=== PATIENT | male | born 1990 | race Two or more races ===

== ENCOUNTER 2020-10-19 11:53 | Outpatient (REF) | payer OTHER, SELFPAY | END 2020-10-19 11:54 | disposition home or self-care (01) | LOC: HO.LAB 11:53 | PROVIDERS: Visit Provider Internal Medicine | DX: Z20.828 Contact with and (suspected) exposure to other viral communicable diseases (principal) | CPT/HCPCS: C9803; U0003 ==

== ENCOUNTER 2021-03-04 07:57 | Outpatient (REF) | payer OTHER, SELFPAY ==
[2021-03-04 08:30] LABS: COVID-19 Test Negative (Negative); IDNOW Serial# 55D5AD1C
== END 2021-03-04 07:58 | disposition home or self-care (01) ==
LOC: HO.LAB 07:57
PROVIDERS: Visit Provider Internal Medicine
DX: Z20.822 Contact with and (suspected) exposure to COVID-19 (principal)
CPT/HCPCS: 36415; 87635; C9803

== ENCOUNTER 2021-08-09 11:37 | Emergency (ER) | payer OTHER, SELFPAY ==
[2021-08-09 11:39] VITALS: BP 139/72; PULSE 95; RESP 20; TEMP 36.9; O2SAT 98; BMI 22.3
--- NOTE | 2021-08-09 13:49 | ED.ALLEREA ---
HPI - Allergic Reaction General Chief complaint: Allergic Reaction Stated complaint: allergic reaction Time Seen by Provider: 08/09/21 13:49 Source: patient Mode of arrival: ambulatory Limitations: no limitations History of Present Illness HPI narrative: Patient reports he was at work getting something out of the basement when he felt something bite him to the right elbow and since then has been having itchiness and a rash spreading up his arm. He reports that he started having some dizziness and he became pallor and was sweating. He denies any other symptoms complaints or concerns at this time. MD complaint: allergic reaction and hives Onset (ago): minute(s) (Prior to arrival) Exposure: insect bite (Possibly) Symptoms: rash, itching and dizziness Severity: mild Treatment prior to arrival: none Previous Allergic Reaction History: none Related Data Previous Rx's Medication Instructions Recorded diphenhydramine HCl 25 mg tablet 50 mg PO TID PRN #14 tab 08/09/21 (Benadryl Allergy) famotidine 20 mg tablet (Pepcid) 20 mg PO BID #10 tab 08/09/21 hydrocortisone 2.5 % topical 1 appl TOPICAL QD-TID PRN #454 g 08/09/21 ointment prednisone 20 mg tablet 40 mg PO DAILY 5 Days #10 tab 08/09/21 Allergies Allergy/AdvReac Type Severity Reaction Status Date / Time No Known Allergies Allergy Unverified 08/06/20 16:04 Review of Systems Review of Systems: Constitutional : No Fever, No Chills , no body aches, no recent illness Head/Face: No facial swelling, No facial redness ENT/Mouth : No oral/throat swelling, No Hoarseness, No Swallowing Difficulty Eyes: No Eye Pain, No Swelling, No Redness Cardiovascular : No Chest Pain, No SOB, No palpitations Respiratory : No Cough, No Sputum, No Wheezing, No Smoke Exposure, No Dyspnea Gastrointestinal : No Nausea, No Vomiting, No Diarrhea, No abdominal Pain Genitourinary : No Dysuria, No Urinary Frequency, No Hematuria Musculoskeletal : No joint pain, No Myalgias, No Joint Swelling Skin : No Skin Lesions, positive rash Neuro : No Weakness, No Numbness, No Headache, No dizziness, No tingling Psych : No Anxiety/Panic, No Depression Heme/Lymph: No Bruising, No Lymphadenopathy Endocrine : No Polyuria, No Polydipsia Denies changes in lotions or detergents. Denies new medications or any changes in medications. Denies drainage from rash. Denies any recent sick contacts or recent travel. Yes all other systems are reviewed and are negative PMFSH Past Medical History Attestation statement: The following information was validated with the patient. Social History Social History Advance Directives: No Advance Directives Information Provided: Yes Physical Exam Vital Signs: Vital Signs: Last Vital Signs Temp 98.5 F 08/09/21 11:39 Pulse 95 08/09/21 11:39 Resp 20 08/09/21 11:39 BP 139/72 08/09/21 11:39 Pulse Ox 98 08/09/21 11:39 Body Mass Index 22.3 vital signs have been reviewed as normal and appeared to be correct. Blood pressure normal. Heart rate normal. Respiration rate normal. Temperature normal. Oxygen saturation normal. Appearance: Alert. Oriented X3. No acute distress. No angioedema is noted. Head: Normal external exam. Normocephalic. Atraumatic. Eyes: PERRLA. EOMI. Conjunctiva and sclera normal. Eyelids normal. ENT: Pharynx normal. Uvula midline. Moist mucous membranes. No trismus noted. No drooling noted. No muffled voice noted. Neck: Normal inspection. Neck supple. FROM. No adenopathy. Thyroid Normal. No meningeal signs. No neck mass noted. CVS: Normal heart rate and rhythm. Heart sound normal. Pulses normal throughout. No murmurs/rales/gallops. Respiratory: No respiratory distress. Painless inspiration. Breath sounds normal. No wheezes/rales/rhonchi noted. Chest nontender. No accessory muscle usage noted or decreased air movement noted. Abdomen: Soft and nontender. Bowel sounds normal in all 4 quadrants. No distention noted. No organomegaly noted. No visible injury noted. Back: Full range of motion noted. No rashes/lesion/induration/fluctuance or signs of infection noted. Skin: Skin warm and dry. Normal skin color. Normal skin turgor. To right elbow/forearm/right upper arm patient has macular papular blanchable erythematous rash/hives consistent with allergic reaction. No lesions/lacerations noted. Extremities: Extremities exhibit normal range of motion. Extremities nontender. Neuro: Oriented X 3. No motor deficit. No sensory deficit. Reflexes normal. Normal steady gait. No focal neuro deficits noted. Vascular: + radial pulses/+ 2 distal pedal pulses/+2 dorsalis pedis b/l. Normal cap refill. No cyanosis noted to upper extremity nails and lower extremity toes nails. Course Course Course Narrative: IMP/Plan: Allergic rxn. Not anaphylaxis. Not sepsis/ infectious etiology. Patient well appearing in no acute distress, breathing easily without throat symptoms. Speaking full sentences, and handling secretions without difficulty. There is no obvious threat to airway. Lungs are CTA in all reynoso. No signs of angioedema, stridor, airway compromise, anaphylaxis or anaphylactic shock. Not c/w SSSS/ TEN/ Eryth multiforme/ Can [place]. Given HPI and PE - Will watch and observe. If patient continues to be symptom free - will d/c with return precautions. Patient understands and agrees with plan MDM - Allergic Reaction Medical Records Attestation: I reviewed the patient's medical records. Discharge Plan Discharge Clinical Impression: Allergic reaction, Urticaria Patient Disposition: Home, Self-Care Instructions: Urticaria (ED), General Allergic Reaction (ED), Allergy Testing (ED) Prescriptions: New hydrocortisone 2.5 % ointment 1 appl topical QD-TID PRN (Reason: skin irritation) Qty: 454 RF: 0 diphenhydramine HCl [Benadryl Allergy] 25 mg tablet 50 mg PO TID PRN (Reason: allergic reaction) Qty: 14 RF: 0 famotidine [Pepcid] 20 mg tablet 20 mg PO BID Qty: 10 RF: 0 prednisone 20 mg tablet 40 mg PO DAILY 5 Days Qty: 10 RF: 0 Referrals: Physician,Unknown [Primary Care Provider] - 2 days (Your PCP for allergy testing) Stand Alone Forms: Work/School Release Print Language: Salvadorean
[2021-08-09] MEDS: Famotidine 20 MG TABLET PO (14:08)
[2021-08-09] MEDS: predniSONE 20 MG TABLET 60 MG PO (14:08)
[2021-08-09] MEDS: diphenhydrAMINE HCL 25 MG TABLET 50 MG PO (14:08)
== END 2021-08-09 14:22 | disposition home or self-care (01) ==
PROVIDERS: Emergency Provider Emergency Medicine Emergency Medical Services
DX: L50.0 Allergic urticaria (principal); Z79.899 Other long term (current) drug therapy
CPT/HCPCS: 99283; Q0163

== ENCOUNTER 2021-08-26 15:48 | Emergency (ER) | payer OTHER, SELFPAY ==
[2021-08-26 16:18] VITALS: BP 121/67; PULSE 72; RESP 18; TEMP 36.4; O2SAT 97; BMI 24.4
[2021-08-26 19:51] LABS: MANUAL DIFF FLAG NO
[2021-08-26 19:52] LABS: Basophils Percent Auto 0.3 % (0-2); Eosinophils Absolute Auto 0.8 X10*3/uL (0.0-0.4); Eosinophils Percent Auto 9.3 % (0-4); Hematocrit 38.4 % (42-52); Hemoglobin 12.9 g/dl (14.0-18.0); Imm Gran Abs Auto 0.02 X10*3/uL (0.00-0.03); Imm Gran Pct Auto 0.2 % (0.0-0.4); Lymphocytes Absolute Auto 2.4 X10*3/uL (1.2-4.9); Lymphocytes Percent Auto 26.6 % (20-40); Mean Corpuscular HGB Conc 33.6 g/dl (31.0-36.0); Mean Corpuscular Hemoglobin 29.8 pg (27.0-33.0); Mean Corpuscular Volume 88.7 fL (80-98); Mean Platelet Volume 9.1 fL (9.4-12.4); Monocytes Absolute Auto 0.7 X10*3/uL (0.1-1.2); Monocytes Percent Auto 7.4 % (2-11); Neutrophils Absolute Auto 5.1 X10*3/uL (2.0-8.3); Neutrophils Percent Auto 56.2 % (45-73); Platelet Count 233 X10*3/uL (160-400); Red Blood Count 4.33 X10*6/uL (4.60-5.80); Red Cell Distribution Width 13.4 % (11.0-16.0); White Blood Count 9.1 X10*3/uL (4.8-10.8)
[2021-08-26 20:06] LABS: Alanine Aminotransferase 20 U/L (0-40); Albumin Level 4.3 g/dL (3.5-5.0); Alkaline Phosphatase 59 U/L (39-117); Anion Gap 11 (12-20); Aspartate Amino Transferase 17 U/L (5-37); Bilirubin Total 0.5 mg/dL (0.0-1.0); Blood Urea Nitrogen 15 mg/dL (9-16); Calcium 9.5 mg/dL (8.4-10.2); Carbon Dioxide 31 mmol/L (22-29); Chloride 104 mmol/L (96-108); Creatinine Clr Calc Pharmacy 129.5; Estimated Glomerular Filt Rate > 60; Glucose Random 115 mg/dL (60-115); Lipase 46 U/L (8-78); Potassium 3.9 mmol/L (3.3-5.1); Sodium 142 mmol/L (135-145); Total Protein 6.9 g/dL (6.5-8.0)
[2021-08-26 20:57] VITALS: BP 127/60; PULSE 53; O2SAT 98
--- NOTE | 2021-08-26 21:22 | ED_ITS ---
HPI - Abdominal Pain General Chief Complaint: Abdominal Pain Stated Complaint: hernia? Time Seen by Provider: 08/26/21 21:12 Source: patient Mode of arrival: ambulatory Limitations: no limitations History of Present Illness HPI narrative: 31-year-old male who presents emergency department for evaluation of right-sided groin pain. 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 He states that involved shoveling and moving wear a belt. He states at 1 point he developed pain in his right groin area with a bump in this area. He states that today the pain and bump got worse. Describes as a constant, sharp pain in his right groin area which is worse with movement. He also states that the bump is painful when he pushes on it. He was concerned that he had a hernia therefore he came to the emergency department for evaluation. Related Data Previous Rx's Medication Instructions Recorded diphenhydramine HCl 25 mg tablet 50 mg PO TID PRN #14 tab 08/09/21 (Benadryl Allergy) famotidine 20 mg tablet (Pepcid) 20 mg PO BID #10 tab 08/09/21 hydrocortisone 2.5 % topical 1 appl TOPICAL QD-TID PRN #454 g 08/09/21 ointment prednisone 20 mg tablet 40 mg PO DAILY 5 Days #10 tab 08/09/21 Allergies Allergy/AdvReac Type Severity Reaction Status Date / Time No Known Allergies Allergy Verified 08/26/21 16:18 Review of Systems Review of Systems Yes all other systems are reviewed and are negative Physical Exam Vital Signs: Vital Signs: Last Vital Signs Temp 97.6 F 08/26/21 16:18 Pulse 53 08/26/21 20:57 Resp 18 08/26/21 16:18 BP 127/60 08/26/21 20:57 Pulse Ox 98 08/26/21 20:57 Body Mass Index 24.4 Const: General: cooperative and no acute distress Orientation/consciousness: oriented to person and oriented to place Limitations: no limitations HENMT: Head: Yes normal to inspection, Yes normocephalic and Yes atraumatic Ears: external ears normal General nose exam: Normal external nose present Face and sinus: Yes normal facial exam Mouth: Normal oral and palatal mucosa present Throat: Yes posterior oropharynx normal Eyes: General: appearance normal, both eyes and all related structures Pupils: Equal, round and reactive pupils present Neck: Neck: Yes normal visual inspection, Yes no lymphadenopathy, Yes trachea midline and Yes supple Chest: Chest palpation & inspection: normal inspection of the chest and normal palpation of entire chest wall Resp: Effort & Inspection: normal respiratory effort and able to speak in complete sentences Auscultation: clear to auscultation bilaterally Cardio: Rate: regular rate Rhythm: regular rhythm Heart sounds: S1 normal heart sound present, S2 normal heart sound present and no murmurs GI: Inspection: Yes normal to inspection Palpation (GI): Soft to palpation, nontender and no guarding Auscultation: normal bowel sounds : Other: No inguinal hernia noted on exam General: Yes no CVA tenderness Male General Exam: Yes normal external exam Penis: normal penis Meatus: meatus normal Scrotum: scrotum normal Testes: Testes normal Back/Spine/Pelvis: Back: no CVA tenderness Skin: General skin exam: no rashes or lesions noted Neuro: General: oriented to person and oriented to place Cranial nerves: Yes CN's II-XII intact bilaterally and Yes Equal, round and reactive pupils present Cognition (Neuro): normal cognition Motor exam (neuro): 5/5 motor strength present throughout Extrem: Other: The patient does have a fullness to the proximal lateral thigh which is tender to palpation which is consistent with a hematoma. Psych: Appearance: grossly normal Speech and movement: Normal speech and movement present Affect: normal affect Attitude: cooperative Thought process: Normal thought process present Thought content: Normal thought content present Course Course Course Narrative: 31-year-old male who presents emergency department for evalu ation of right groin pain after doing landscaping yesterday. Physical examination revealed no evidence for hernia but the patient does have tenderness palpation of his proximal thigh muscle with a mass in this area which I think is consistent with hematoma. Patient's presentation is more consistent with a groin muscle strain as opposed to hernia and I did discuss this with him. Patient was advised take Tylenol and ibuprofen and apply ice to the area for 15 minutes 4 to 6 times a day over the next 2-3 days. He was given a work note. He was discharged home. MDM - Abdominal Pain Lab Data Result diagrams: 08/26/21 19:41 08/26/21 19:41 Labs: Lab Results 08/26/21 08/26/21 Range/Units 19:41 19:41 WBC 9.1 (4.8-10.8) X10*3/uL RBC 4.33 L (4.60-5.80) X10*6/uL Hgb 12.9 L (14.0-18.0) g/dl Hct 38.4 L (42-52) % MCV 88.7 (80-98) fL MCH 29.8 (27.0-33.0) pg MCHC 33.6 (31.0-36.0) g/dl RDW 13.4 (11.0-16.0) % Plt Count 233 (160-400) X10*3/uL MPV 9.1 L (9.4-12.4) fL Immature Gran % (Auto) 0.2 (0.0-0.4) % Neut % (Auto) 56.2 (45-73) % Lymph % (Auto) 26.6 (20-40) % Cook % (Auto) 7.4 (2-11) % Eos % (Auto) 9.3 H (0-4) % Baso % (Auto) 0.3 (0-2) % Lymph # (Auto) 2.4 (1.2-4.9) X10*3/uL Cook # (Auto) 0.7 (0.1-1.2) X10*3/uL Eos # (Auto) 0.8 H (0.0-0.4) X10*3/uL Baso # (Auto) 0.0 (0.0-0.2) X10*3/uL Abs Immat Gran (auto) 0.02 (0.00-0.03) X10*3/uL Absolute Neuts (auto) 5.1 (2.0-8.3) X10*3/uL Absolute Nucleated RBC 0.000 (0.0-0.012) X10*3/uL Nucleated RBC % (auto) 0.0 (0.0-0.2) /100WBC Sodium 142 (135-145) mmol/L Potassium 3.9 (3.3-5.1) mmol/L Chloride 104 (96-108) mmol/L Carbon Dioxide 31 H (22-29) mmol/L Anion Gap 11 L (12-20) BUN 15 (9-16) mg/dL Creatinine 0.88 (0.5-1.4) mg/dL Estim Creat Clear Calc 129.5 Estimated GFR > 60 Random Glucose 115 (60-115) mg/dL Calcium 9.5 (8.4-10.2) mg/dL Total Bilirubin 0.5 (0.0-1.0) mg/dL AST 17 (5-37) U/L ALT 20 (0-40) U/L Alkaline Phosphatase 59 (39-117) U/L Total Protein 6.9 (6.5-8.0) g/dL Albumin 4.3 (3.5-5.0) g/dL Lipase 46 (8-78) U/L Discharge Plan Discharge Clinical Impression: Muscle strain of right thigh Qualifiers: Encounter type: initial encounter Qualified Code(s): S76.911A - Strain of unspecified muscles, fascia and tendons at thigh level, right thigh, initial encounter Patient Disposition: Home, Self-Care Instructions: Groin Strain (ED) Additional Instructions: Your examination revealed that you strained a muscle in your groin/right upper thigh. This is not a hernia. It sometimes takes a week to 2 weeks for a muscle strain to heal. Apply ice for 15 minutes 4 to 6 times a day for the next 2-3 days to help reduce the pain and swelling in this area. Take ibuprofen 200 mg pills, 3 pills every 6 hours as needed for pain. Take Tylenol (acetaminophen) 500 mg pills, 2 pills every 4 to 6 hours as needed for pain. Follow-up with your doctor in 2 days. Please return to the emergency department if your symptoms get worse or if you develop any symptoms that are concerning to you. No work until Monday08/30/2021 Prescriptions: No Action hydrocortisone 2.5 % ointment 1 appl topical QD-TID PRN (Reason: skin irritation) Qty: 454 RF: 0 diphenhydramine HCl [Benadryl Allergy] 25 mg tablet 50 mg PO TID PRN (Reason: allergic reaction) Qty: 14 RF: 0 famotidine [Pepcid] 20 mg tablet 20 mg PO BID Qty: 10 RF: 0 prednisone 20 mg tablet 40 mg PO DAILY 5 Days Qty: 10 RF: 0 Stand Alone Forms: Work/School Release [facility] Past Medical History [facility] Narrative: Past medical history: None. Past surgical history: Appendectomy, left knee surgery. Social history: The patient smokes 1 pack of cigarettes per day times many years. The patient drinks alcohol daily. The patient states that he occasionally uses crack cocaine. Medical History (Updated 08/26/21 @ 21:25 by Lionel Shetty MD) Patient denies medical problems Social History Social History Alcohol intake: never Patient Tobacco Use Status: Current everyday Tobacco user Use of substances other than those prescribed or required for medical reasons: No Advance Directives: No
== END 2021-08-26 21:39 | disposition home or self-care (01) ==
PROVIDERS: Emergency Provider Emergency Medicine Emergency Medical Services; PCP Internal Medicine
DX: S76.911A Strain of unspecified muscles, fascia and tendons at thigh level, right thigh, initial encounter (principal); X58.XXXA Exposure to other specified factors, initial encounter; Y93.H2 Activity, gardening and landscaping; Y92.9 Unspecified place or not applicable; Y99.0 Civilian activity done for income or pay
CPT/HCPCS: 36415; 80053; 83690; 85025; 99283; 99284

== ENCOUNTER 2022-06-13 19:20 | Emergency (ER) | payer OTHER, SELFPAY ==
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
--- NOTE | ~2022-06-13 | CT_ITS ---
EXAMINATION: CT CHEST WITHOUT CONTRAST CLINICAL INFORMATION: Chest pain COMPARISON: None TECHNIQUE: Multidetector volumetric CT imaging of the chest was done. Axial MIP volume rendering provided. Sagittal and coronal reformatted images were obtained. This CT examination was performed using dose optimization techniques as appropriate, variously including the following: *Automated exposure control *Adjustment of mA and/or kV according to patient size (this includes techniques or standardized protocols for targeted exams where dose is matched to indication/reason for exam; i.e. extremities or head) *Use of iterative reconstruction technique DLP: 352 mGy-cm FINDINGS: LUNGS: Dependent atelectasis/groundglass change is seen. The lungs are otherwise clear without infiltrates or lung masses. MEDIASTINUM: Residual thymic tissue is present in the anterior mediastinum. PLEURA: There is no pleural effusion. No pleural mass or thickening. AXILLA: No lymphadenopathy. UPPER ABDOMEN: Unremarkable. OSSEOUS STRUCTURES: Unremarkable. CT/CT chest wo con IMPRESSION: A cause for patient's chest pain has not been found. No significant abnormality is seen. Fleischner guidelines were followed.
[2022-06-13 19:53] VITALS: BP 128/74; PULSE 80; RESP 18; TEMP 37.2; O2SAT 96; BMI 26.6
[2022-06-13] MEDS: Lidocaine HCl 1 % MPF 5 ML VIAL SUBCUT ×2 (20:14)
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
[2022-06-13] MEDS: Acetaminophen 325 MG TABLET 975 MG PO (22:32)
[2022-06-13 22:53] LABS: MANUAL DIFF FLAG NO
[2022-06-13 22:54] LABS: Basophils Percent Auto 0.3 % (0-2); Eosinophils Absolute Auto 0.4 X10*3/uL (0.0-0.4); Eosinophils Percent Auto 3.4 % (0-4); Hematocrit 42.1 % (42.0-52.0); Imm Gran Abs Auto 0.03 X10*3/uL (0.00-0.03); Imm Gran Pct Auto 0.3 % (0.0-0.4); Lymphocytes Absolute Auto 1.8 X10*3/uL (1.2-4.9); Lymphocytes Percent Auto 14.7 % (20-40); Mean Corpuscular HGB Conc 33.3 g/dl (31.0-36.0); Mean Corpuscular Hemoglobin 27.8 pg (27.0-33.0); Mean Corpuscular Volume 83.5 fL (80.0-98.0); Mean Platelet Volume 9.5 fL (9.4-12.4); Monocytes Absolute Auto 0.7 X10*3/uL (0.1-1.2); Monocytes Percent Auto 5.4 % (2-11); Neutrophils Absolute Auto 9.1 x10*3/uL (2.0-8.3); Neutrophils Percent Auto 75.9 % (45-73); Platelet Count 239 X10*3/uL (160-400); Red Blood Count 5.04 X10*6/uL (4.60-5.80); Red Cell Distribution Width 13.3 % (11.0-16.0)
[2022-06-13 23:09] LABS: Alanine Aminotransferase 15 U/L (0-40); Albumin Level 4.7 g/dL (3.5-5.0); Alkaline Phosphatase 68 U/L (39-117); Anion Gap 9 (12-20); Aspartate Amino Transferase 19 U/L (5-37); Bilirubin Direct 0.3 mg/dL (0.0-0.5); Bilirubin Total 0.7 mg/dL (0.0-1.0); Blood Urea Nitrogen 19 mg/dL (9-16); Calcium 9.1 mg/dL (8.4-10.2); Carbon Dioxide 31 mmol/L (22-29); Chloride 104 mmol/L (96-108); Estimated Glomerular Filt Rate > 60; Glucose Random 90 mg/dL (60-115); Magnesium 2.1 mg/dL (1.6-2.6); Sodium 140 mmol/L (135-145); Total Protein 7.4 g/dL (6.5-8.0)
[2022-06-13] MEDS: Ketorolac Tromethamine 30 MG/ML VIAL IM (23:42)
== END 2022-06-14 00:24 | disposition home or self-care (01) ==
PROVIDERS: Physician Assistant; Emergency Provider Emergency Medicine; PCP Internal Medicine
DX: S51.011A Laceration without foreign body of right elbow, initial encounter (principal); S01.81XA Laceration without foreign body of other part of head, initial encounter; S40.811A Abrasion of right upper arm, initial encounter; R51.9 Headache, unspecified; M54.6 Pain in thoracic spine; M54.2 Cervicalgia; V29.3XXA Motorcycle rider (driver) (passenger) injured in unspecified nontraffic accident, initial encounter; Y93.9 Activity, unspecified; Y92.410 Unspecified street and highway as the place of occurrence of the external cause; Y99.9 Unspecified external cause status; Z79.899 Other long term (current) drug therapy
CPT/HCPCS: 12001; 12013; 36415; 70450; 70486; 71250; 72125; 73080; 80048; 80076; 83735; 85025; 96372; 99283; 99284; J1885

== ENCOUNTER 2022-10-18 19:46 | Inpatient (IN) | payer OTHER, SELFPAY ==
--- NOTE | ~2022-10-18 | XR_ITS ---
EXAMINATION: XR CHEST CLINICAL INFORMATION: Overdose, Narcan with cough COMPARISON: Chest x-ray 03/08/2018 TECHNIQUE: Frontal view of the chest was obtained. FINDINGS: The lungs are clear. No airspace consolidation, pleural effusion, or pneumothorax. The cardiomediastinal silhouette is within normal limits. No acute osseous injury. XR/XR chest 1V IMPRESSION: No acute pulmonary process.
[2022-10-18 19:54] VITALS: BP 150/74; PULSE 78; O2SAT 98
--- NOTE | 2022-10-18 19:54 | PC.NURSE ---
Pt. awake, alert on arrival to ED s/p 8mg Narcan
--- NOTE | 2022-10-18 19:58 | PC.NURSE ---
Pt. attempted to elope. Pt. under 1:1 supervision at this time
[2022-10-18 20:03] VITALS: BP 121/71; PULSE 104; RESP 18; O2SAT 96; BMI 24.4
--- NOTE | 2022-10-18 20:11 | PC.NURSE ---
Pt. remains with 1:1. Verbalized that he has marijuana in this pocket. Security called to search pt.
[2022-10-18 20:12] VITALS: BP 121/71; PULSE 104; RESP 18; O2SAT 96
--- NOTE | 2022-10-18 20:24 | PC.NURSE ---
Pt changed over to psych gown. Security took pt belongings
--- NOTE | 2022-10-18 20:40 | ED.OVERDOSE ---
HPI - Overdose General Chief Complaint: Overdose Stated Complaint: unresponisive Time Seen by Provider: 10/18/22 20:21 Source: patient and EMS Mode of arrival: EMS Limitations: no limitations History of Present Illness HPI Narrative: 32-year-old male presents via EMS for heroin overdose. Required 8 mg of intranasal Narcan. complaint: intentional overdose Onset (ago): hour(s) (Within the hour of arrival) Intent: suicide attempt Context: Intentional Overdose: drug/ETOH problems Context: Accidental Overdose: wanted to get high Associated symptoms: depression Treatments Prior to Arrival: narcan Related Data Home Medications Medication Instructions Recorded Confirmed buprenorphine 8 mg-naloxone 2 mg 3 film buccal DAILY 02/09/22 02/09/22 sublingual film (Suboxone) quetiapine 100 mg tablet (Seroquel) 100 mg PO BEDTIME 02/09/22 02/09/22 Previous Rx's Medication Instructions Recorded cephalexin 500 mg capsule 500 mg PO BID 5 days #10 caps 06/14/22 cyclobenzaprine 10 mg tablet 10 mg PO Q12H PRN muscle spasm #10 06/14/22 tabs ibuprofen 800 mg tablet 800 mg PO Q8H #14 tabs 06/14/22 Allergies Allergy/AdvReac Type Severity Reaction Status Date / Time No Known Allergies Allergy Verified 02/09/22 08:45 Review of Systems Review of Systems: Constitutional: No Fever, No Chills ENT/Mouth: No Ear Pain, No Hoarseness, No sore throat Eyes: No Eye Pain, No Swelling, No Redness, No Foreign Body Cardiovascular: No Chest Pain, No SOB Respiratory: No Cough, No Dyspnea Gastrointestinal: No Nausea, No Vomiting, No Diarrhea, No abdominal Pain Genitourinary: No Dysuria, No Hematuria Musculoskeletal: Note joint pain, No Myalgias, No Joint Swelling Skin: No Skin lacerations, No rash Neuro: No Weakness, No Numbness, No Paresthesias, No Loss of Consciousness, No Dizziness, No Headache Psych: Positive suicidal attempt, positive substance abuse, positive depression Heme/Lymph: no easy bruising, no Lymphadenopathy Endocrine: No Polyuria, No Polydipsia Yes all other systems are reviewed and are negative PMFSH Past Medical History Attestation statement: The following information was validated with the patient. Source: old records reviewed Medical History Patient denies medical problems Surgical History No pertinent past surgical history Family History Family History Mother No problems noted. Father No problems noted. Social History Social History Housing: Other Alcohol intake: never Patient Tobacco Use Status: Current everyday Tobacco user Cigarettes Per Day: 5 Smoked in Last 30 Days: Yes e-Cigarette/Vaping Use: Never Used Second Hand Smoke Exposure: No Use of substances other than those prescribed or required for medical reasons: Yes Substance Use Type: Crack/Cocaine and Heroin Substance Use Frequency: Daily Advance Directives: No Advance Directives Information Provided: No service: No Current occupational status: unemployed Cognitive needs: No Hearing needs: No Vision needs: No Physical Exam Vital Signs: Vital Signs: Last Vital Signs Pulse 104 H 10/18/22 20:12 Resp 18 10/18/22 20:12 BP 121/71 10/18/22 20:12 Pulse Ox 96 10/18/22 20:12 O2 Del Method 10/18/22 20:12 BMI result Body Mass Index 24.4 Appearance: Alert. Oriented X3. No acute distress. Eyes: Pupils equal, round and reactive to light. ENT: Pharynx normal. Neck: Normal inspection. Neck supple. CVS: Normal heart rate and rhythm. Pulses normal. Respiratory: No respiratory distress. Breath sounds normal. Abdomen: Soft and nontender. Skin: Skin warm and dry. Normal skin color. Normal skin turgor. Extremities: No lower extremity edema. Neuro: No motor deficit. No sensory deficit. Course Course Course Narrative: 32-year-old male presents via EMS for heroin overdose. Patient stated that this was an intentional overdose, he required 8 mg of Narcan intranasal. Patient is alert oriented, even unlabored respirations, and would like detox. During my initial assessment, patient denied suicidality, and stated that he just wanted to get high. Once his mother join him at bedside, he seemed to be more remorseful, and then admitted that this overdose was intentional. He initially declined detox by assistant women's tennis coach, however after discussion with his mother, and admitting to suicidality, he was open to detox. 21:30 Section 12 sign by this SENIOR CORE JAVA DEVELOPER. Medications Administered Discontinued Medications Generic Name Dose Route Start Last Admin Trade Name Freq PRN Reason Stop Dose Admin Lorazepam 2 mg 10/18/22 23:12 10/18/22 23:22 Lorazepam 1 Mg Tablet PO 10/18/22 23:13 2 mg ONCE ONE Administration MDM - Overdose Differential Diagnosis Differential diagnosis: Likely suicide attempt by multiple drug overdose and drug overdose Medical Records Attestation: I reviewed the patient's medical records. Lab Data Attestation: I reviewed the patient's lab results. Labs: Lab Results 10/18/22 10/18/22 Range/Units 21:23 21:23 Urine Opiates Screen POSITIVE H (Not Detect) Urine Fentanyl Screen POSITIVE H (Not Detect) Ur Barbiturates Screen Not Detected (Not Detect) Ur Phencyclidine Scrn Not Detected (Not Detect) Ur Amphetamines Screen Not Detected (Not Detect) U Benzodiazepines Scrn Not Detected (Not Detect) Urine Cocaine Screen POSITIVE H (Not Detect) U Marijuana (THC) Screen POSITIVE H (Not Detect) Influenza Type A (PCR) NEGATIVE (Negative) Influenza Type B (PCR) NEGATIVE (Negative) RSV RNA Qual (PCR) NEGATIVE (Negative) SARS-CoV-2 RNA (RT-PCR) NEGATIVE (Negative) Imaging Data Chest x-ray: Attestation: I personally reviewed and interpreted this imaging study as follows: Radiologist's impression: EXAMINATION: XR CHEST CLINICAL INFORMATION: Overdose, Narcan with cough COMPARISON: Chest x-ray 03/08/2018 TECHNIQUE: Frontal view of the chest was obtained. FINDINGS: The lungs are clear. No airspace consolidation, pleural effusion, or pneumothorax. The cardiomediastinal silhouette is within normal limits. No acute osseous injury. XR/XR chest 1V IMPRESSION: No acute pulmonary process. ? Discharge Plan Discharge Clinical Impression: Suicide attempt by multiple drug overdose, Substance abuse Patient Disposition: Still a Patient Prescriptions: No Action cephalexin 500 mg capsule 500 mg PO BID 5 Days Qty: 10 0RF cyclobenzaprine 10 mg tablet 10 mg PO Q12H PRN (Reason: muscle spasm) Qty: 10 0RF ibuprofen 800 mg tablet 800 mg PO Q8H Qty: 14 0RF quetiapine [Seroquel] 100 mg tablet 100 mg PO BEDTIME buprenorphine-naloxone [Suboxone] 8-2 mg film 3 film buccal DAILY Rx Instructions: use only 2 strips in mouth at one time, 1 film on inside of (each) cheek Interventions: Collins-Suicide Risk Severity Scale Last Done: 10/18/22 20:06
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
--- NOTE | 2022-10-18 21:35 | MHC.RECOVSUP ---
? Reason for consult:OPI o? Current location:[facility]? o? Identified substance use concern:? -? Overdose -? Seeking ATS (detox) -? Support ? Intervention: o? ATS bed search started/completed/in process o? Community resources provided o? Harm reduction discussion ? Plan: o? Bed search in progress to o? Follow up tomorrow? ? Additional information: met with Cooper upon arrival, he stated he didn't take any substances, and when he woke up he had been narcaned and didn't know why. at 9:38 the came into the bubble and stated that he wants help and is seeking ATS Treatment, Please follow up in the morning. I will try to find a him a bed but I 'm not sure if I will be successful at this time.
[2022-10-18 21:42] LABS: Amphetamine Screen Urine Not Detected (Not Detect); Barbiturates, Urine Not Detected (Not Detect); Benzodiazepines Screen Urine Not Detected (Not Detect); Cannabinoid Screen Urine POSITIVE (Not Detect); Cocaine Screen Urine POSITIVE (Not Detect); Fentanyl, urine POSITIVE (Not Detect); Opiate Screen Urine POSITIVE (Not Detect); Phencyclidine Screen Urine Not Detected (Not Detect)
[2022-10-18 22:06] LABS: Influenza A PCR NEGATIVE (Negative); Influenza B PCR NEGATIVE (Negative); Resp Syncy Virus RNA Qual PCR NEGATIVE (Negative); SARS COV2 PCR INHOUSE NEGATIVE (Negative)
--- NOTE | 2022-10-18 22:11 | PC.NURSE ---
Assumed care of patient.
--- NOTE | 2022-10-18 22:11 | PC.NURSE ---
Patient quietly resting at this time. No apparent distress.
[2022-10-18] MEDS: LORazepam 1 MG TABLET 2 MG PO (23:22)
--- NOTE | 2022-10-18 23:22 | PC.NURSE ---
Administered ativan per JAN. Pt was becoming increasingly anxious and restless.
--- NOTE | 2022-10-19 | ECG_ITS ---
Test Reason : QT INTERVAL Blood Pressure : / mmHG Vent. Rate : 058 BPM Atrial Rate : 058 BPM P-R Int : 140 ms QRS Dur : 098 ms QT Int : 450 ms P-R-T Axes : -01 -18 -05 degrees QTc Int : 441 ms Sinus bradycardia Minimal voltage criteria for LVH, may be normal variant ( R in aVL ) RSR' or QR pattern in V1 suggests right ventricular conduction delay Left axis deviation Borderline ECG No previous ECGs available Referred By: Dion Capps Electronically Signed By:JASE EVANS MD
[2022-10-19] MEDS: Albuterol Sulfate 90 MCG 8 GM INHALER 2 PUFF INHALE ×2 (00:38→10:32)
[2022-10-19 00:41] VITALS: BP 125/69; PULSE 86; RESP 16; TEMP 37; O2SAT 93
--- NOTE | 2022-10-19 06:25 | PC.NURSE ---
Patient slept though the night, no distress observed/reported, behavior non concerning, patient engaged well with [facility] clinician during assessment, disposition per [facility] is section 12 inpatient bed search, med rec completed/patient is not on any home medication, patient requested for inhaler due to SOB, pro air ordered as needed/administered with + effect, VSS, will continue to monitor.
--- NOTE | 2022-10-19 10:13 | MHC.RECOVRN ---
This mortgage or loan underwriter met w/ pt, pt awake to verbal stimuli, laying in bed, alert. Pt denies opiate withdrawal symptoms at this time, pt states is feeling anxious, pt states anxiety is not related to withdrawal. ED RN aware of pts request for anxiety medications.
[2022-10-19] MEDS: QUEtiapine Fumarate 100 MG TABLET PO (10:31)
[2022-10-19 11:11] VITALS: BP 110/59; PULSE 50; RESP 19; TEMP 36.7; O2SAT 94
[2022-10-19 15:52] LABS: Hematocrit 48.6 % (42.0-52.0); Hemoglobin 16.3 g/dl (14.0-18.0); Mean Corpuscular HGB Conc 33.5 g/dl (31.0-36.0); Mean Corpuscular Hemoglobin 29.5 pg (27.0-33.0); Mean Corpuscular Volume 87.9 fL (80.0-98.0); Mean Platelet Volume 9.6 fL (9.4-12.4); Platelet Count 303 X10*3/uL (160-400); Red Blood Count 5.53 X10*6/uL (4.60-5.80); Red Cell Distribution Width 12.3 % (11.0-16.0); White Blood Count 7.8 X10*3/uL (4.8-10.8)
[2022-10-19 16:04] LABS: Alanine Aminotransferase 47 U/L (0-40); Albumin Level 4.6 g/dL (3.5-5.0); Alkaline Phosphatase 68 U/L (39-117); Anion Gap 13 (12-20); Aspartate Amino Transferase 33 U/L (5-37); Bilirubin Total 0.8 mg/dL (0.0-1.0); Blood Urea Nitrogen 9 mg/dL (9-16); Calcium 9.7 mg/dL (8.4-10.2); Carbon Dioxide 30 mmol/L (22-29); Chloride 100 mmol/L (96-108); Creatinine Clr Calc Pharmacy 115.2; Estimated Glomerular Filt Rate > 60; Glucose Random 129 mg/dL (60-115); Potassium 4.3 mmol/L (3.3-5.1); Sodium 139 mmol/L (135-145); Total Protein 7.4 g/dL (6.5-8.0)
--- NOTE | 2022-10-19 16:42 | MHC.CARE ---
Admission to inpt psych unit has been postponed until tomorrow.
[2022-10-19] MEDS: LORazepam 1 MG TABLET 2 MG PO (16:47)
--- NOTE | 2022-10-20 05:29 | PC.NURSE ---
Patient slept through the night, no distress observed/reported, behavior stable and non concerning, med rec completed, patient is not on any medication except pro-air for SOB, disposition per [facility] is section 12 inpatient bed search, no update on bed search yesterday, VSS, patient doesn't want to share his medical information with anyone except his mother, will continue to monitor.
[2022-10-20 07:37] VITALS: RESP 16
--- NOTE | 2022-10-20 07:59 | ECG_ITS ---
Test Reason : med clearance Blood Pressure : / mmHG Vent. Rate : 066 BPM Atrial Rate : 066 BPM P-R Int : 126 ms QRS Dur : 084 ms QT Int : 384 ms P-R-T Axes : 069 086 076 degrees QTc Int : 402 ms Normal sinus rhythm Normal ECG When compared with ECG of 19-OCT-2022 15:45, Questionable change in QRS axis T wave inversion no longer evident in Inferior leads Referred By: Maricruz Avila Electronically Signed By:Kofi Rosales
[2022-10-20] MEDS: LORazepam 1 MG TABLET 2 MG PO ×2 (11:08→18:26)
[2022-10-20 11:35] VITALS: BP 139/74; PULSE 68; RESP 16; TEMP 36.6; O2SAT 98
[2022-10-20 15:55] VITALS: BP 102/58; PULSE 81; RESP 16; TEMP 36.7; O2SAT 98
[2022-10-20 17:02] VITALS: BMI 24.3
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
[2022-10-20] MEDS: Buprenorphine/Naloxone 2/0.5mg FILM 1 FILM SUBLINGUAL (17:38)
[2022-10-20] MEDS: hydrOXYzine HCL 25 MG TABLET PO (17:38)
[2022-10-20 18:18] VITALS: BP 136/73; PULSE 78; RESP 16; TEMP 37.4; O2SAT 99
[2022-10-20] MEDS: Nicotine Polacrilex 2 MG GUM BUCCAL ×2 (18:25→19:05)
[2022-10-20] MEDS: Acetaminophen 325 MG TABLET 650 MG PO (18:25)
[2022-10-20] MEDS: QUEtiapine Fumarate 50 MG TABLET PO (18:26)
[2022-10-20] MEDS: Buprenorphine/Naloxone 4/1 mg FILM 1 FILM SUBLINGUAL (18:26)
[2022-10-20] MEDS: QUEtiapine Fumarate 50 MG TABLET 150 MG PO (21:41)
[2022-10-20] MEDS: Nicotine Polacrilex 2 MG GUM 4 MG BUCCAL (21:43)
--- NOTE | 2022-10-20 23:24 | P.HPPS_ITS ---
HPI Date of Service: 10/20/22 Chief Complaint: suicide attempt-heroin overdose Sources of Information: patient interviewed, chart reviewed and crisis/core team assessment reviewed HPI Subjective Notes: [facility]son Warning and Conditional Voluntary Healthcare Proxy: No Guardianship: No Medical Problems Affecting Mental Status: No Narrative: Kun is a 32-year-old male who carries a dx of opioid use disorder, cocaine use disorder, and MDD recurrent with psychotic features. He presented to [facility] on 10/18/22 due to a suicide attempt by OD on heroin requiring 8 mg of intranasal Narcan. Precipitating factors include recent stressors of homelessness, financial stress. He recently left detox AMA in April or May 2022 to go back to work and provide for his kids financially, however he relapsed on substances shortly after. He started sniffing cocaine, this advanced to buying Percocet. Utox positive for opiates, fentanyl, cocaine, and cannabis. Pt has hx of AH in the context of depressive episodes and says he uses to get rid of the voices. I spoke with pt this evening. He is tearful, remorseful of his suicide attempt. Denies previous hx of suicide attempts. Says he has never overdosed on substances before and that ?God gave me another chance.? He complains of daily anxiety. Poor sleep. Says ?I haven?t slept good since I got here,? was given Ativan and Seroquel in the ED but says these meds didn?t help. Has long hx of insomnia but says he does not ?even feel tired or nothing.? Pt says he has ?so much problems going through my head, no one wants to listen to me.? He is ?always? anxious. Feels that his family writes him off as a drug addict and ?people call me a junky,? will hide their money from him. This causes him to feel shame and guilt, ?everyone thinks im the bad hermila.? Pt says he has heard voices for a long time and that the voices say ?random things? like to ?go kill someone? or ?put a brick on my feet,? this disturbs him, ?that?s not me.? He attributes using substances to wanting to rid himself of the voices and states he hears voices even during sober time. Pt suffers from episodes of depression and identifies exacerbating fxs as when he is alone or ?thinking about stuff.? Says he only hears voices when he is depressed. Denies hx of manic or hypomanic episodes. Currently denies feeling suicidal, says he feels safe. Past Psychiatric History: -Hx of being treated for ADHD in childhood -Has OP therapist at [facility] -Denies hx of IPLOC -Denies previous hx of SA or SIB Medical Evaluation Reviewed: Yes PMFSH Medical History Patient denies medical problems Surgical History No pertinent past surgical history Family History: -Substance abuse, bipolar DO Social History: -Single, homeless (stays with kids mother, his mother, or his friend?s house). Has three children (son is 4 mo old, daughters age 7 and 12) -Hx of incarceration x 1 yr for gun possession -Has a job doing [employer] but has not worked in 3 weeks Substance History: -Pt used one 30 mg Percocet pill that contained fentanyl, cocaine -Hx of suboxone, says he took 16 mg in the morning and 8 mg in the afternoon and this worked ?perfectly? for him. Trauma History: -Very close with his M GMLiane who was a mother figure to him, she a couple years ago from cancer. Diagnostics Vital Signs (24Hr): Vital Signs - 24 hr 10/20/22 07:37 10/20/22 11:35 10/20/22 15:55 Temperature 97.9 F 98.1 F Pulse Rate 68 81 Respiratory Rate 16 16 16 Blood Pressure 139/74 102/58 L Pulse Oximetry 98 98 Oxygen Delivery Method Room Air Room Air 10/20/22 18:18 Temperature 99.3 F Pulse Rate 78 Respiratory Rate 16 Blood Pressure 136/73 Pulse Oximetry 99 Oxygen Delivery Method Room Air BMI result Body Mass Index 24.3 Labs Results: 10/19/22 15:41 10/19/22 15:41 Labs: Laboratory Results - last 48 hr 10/19/22 10/19/22 15:41 15:41 WBC 7.8 RBC 5.53 Hgb 16.3 Hct 48.6 MCV 87.9 MCH 29.5 MCHC 33.5 RDW 12.3 Plt Count 303 D MPV 9.6 Absolute Nucleated RBC 0.000 Nucleated RBC % (auto) 0.0 Sodium 139 Potassium 4.3 Chloride 100 Carbon Dioxide 30 H Anion Gap 13 BUN 9 Creatinine 0.98 Estim Creat Clear Calc 115.2 Estimated GFR > 60 Random Glucose 129 H Calcium 9.7 D Total Bilirubin 0.8 AST 33 ALT 47 H Alkaline Phosphatase 68 Total Protein 7.4 Albumin 4.6 Imaging Radiology Impressions: ITS Impressions Chest X-Ray 10/18/22 20:54 IMPRESSION: No acute pulmonary process. Meds/Allergies Meds Home Medications Medication Instructions Recorded Confirmed Type albuterol sulfate 90 mcg/actuation 2 puff inhalation Q4H PRN 10/18/22 10/18/22 History aerosol inhaler (ProAir HFA) Shortness Of Breath Or Wheezing Allergies Allergies Allergy/AdvReac Type Severity Reaction Status Date / Time No Known Allergies Allergy Verified 02/09/22 08:45 Mental Status Exam Mental Status Exam Narrative: A&O. In hospital attire, tattoos, well kempt, thin/ normal body habitus. Good eye contact, attentive, tearful. No Tics or Tremors. No abnormal involuntary movements. anxious, cooperative, engaged. Non-pressured speech, spontaneous with regular rate and rhythm, normal volume and prosody. No prolonged speech latency or dysarthria. Mood is ?depressed,? affect is congruent. Denies SI/SIB/HI upon inquiry. Endorses CAH. DeniesVH or delusional thought content. Thoughts are coherent, organized. No known cognitive or memory impairment. Insight/ Judgment limited. Assessment & Plan Assessment & Plan (1) Opioid use disorder: Status: Acute Code(s): F11.90 - Opioid use, unspecified, uncomplicated (2) Cocaine use disorder: Status: Acute Code(s): F14.10 - Cocaine abuse, uncomplicated (3) MDD (major depressive disorder), recurrent, severe, with psychosis: Status: Acute Code(s): F33.3 - Major depressive disorder, recurrent, severe with psychotic symptoms Plan Kun is a 32-year-old male who carries a dx of opioid use disorder, cocaine use disorder, and MDD recurrent with psychotic features. He presented to [facility] on 10/18/22 due to a suicide attempt by OD on heroin requiring 8 mg of intranasal Narcan. Precipitating factors include recent stressors of homelessness, financial stress. He recently left detox AMA in April or May 2022 to go back to work and provide for his kids financially, however he relapsed on substances shortly after. He started sniffing cocaine, this advanced to buying Percocet. Utox positive for opiates, fentanyl, cocaine, and cannabis. Pt has hx of AH in the context of depressive episodes and says he uses to get rid of the voices. Plan: Re-start seroquel at 150 mg HS for poor sleep and mood stability, as pt reports past benefit but says 100 mg was not effective for sleep in the ED felisai ng. Increase vistaril PRN to 50 mg for anxiety. Q15 min safety checks, CV Monitor response to medications. Monitor for safety in the milieu. Discharge on stabilization. Patient seen. Chart reviewed. Discussed with team. Obtain collateral contact info?as needed Patient educated on: diagnosis, medication risk/benefits and therapeutic strategies Reason for continued inpatient stay Substantial Risk for: harm to self, rapid decompensation and med/psych decompensation Statement Statement: I have reviewed the history and physical and performed a pertinent examination on my patient. No changes have occurred unless specified.
[2022-10-21] MEDS: Buprenorphine/Naloxone 8/2 mg FILM 2 FILM SUBLINGUAL (08:25)
[2022-10-21] MEDS: Albuterol Sulfate 90 MCG 8 GM INHALER 2 PUFF INHALE ×2 (08:38→14:03)
[2022-10-21] MEDS: LORazepam 1 MG TABLET 2 MG PO (08:38)
[2022-10-21] MEDS: hydrOXYzine HCL 50 MG TABLET PO ×2 (08:38→20:45)
[2022-10-21 08:55] LABS: Cholesterol 165 mg/dL; Free T4 (Free Thyroxine) 0.94 ng/dL (0.71-1.85); HDL Cholesterol 50 mg/dL; LDL Cholesterol Calculated 94 mg/dl; Magnesium 2.1 mg/dL (1.6-2.6); Thyroid Stimulating Hormone 1.04 uIU/mL (0.32-4.0); Triglycerides 109 mg/dL
[2022-10-21 09:00] VITALS: BP 121/72; PULSE 67; RESP 18; TEMP 36.4; O2SAT 99
[2022-10-21 09:11] LABS: Folate 7.8 ng/mL (> or = 4.0); Vitamin B12 444 pg/mL (200-900)
[2022-10-21] MEDS: Nicotine Polacrilex 2 MG GUM 4 MG BUCCAL ×3 (09:24→18:25)
--- NOTE | 2022-10-21 10:18 | MHC.CLN ---
NUTRITION NUTRITION CONSULT FOR 30# WEIGHT LOSS. REVIEW OF WEIGHT HX SHOWS WEIGHT LOSS X 9 MONTHS -21#, 10.8%. VISITED WITH PATIENT ON UNIT. STATED THAT WANTS TO GAIN WEIGHT BACK. WOULD LIKE ENSURE TID AND ORDER PLACED. PROVIDES ADDITIONAL 1050 KCALS, 60 G PROTEIN.
[2022-10-21] MEDS: QUEtiapine Fumarate 50 MG TABLET PO ×3 (12:31→20:45)
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
[2022-10-21] MEDS: FLUoxetine HCl 10 MG CAPSULE PO (15:01)
--- NOTE | 2022-10-21 16:01 | PC.NURSE ---
10/21 Pt. signed a 3 day notice today 10/21 and will be up on 10/26.
[2022-10-21] MEDS: cloNIDine HCL 0.1 MG TABLET PO ×2 (17:47→20:45)
[2022-10-21 17:48] VITALS: BP 149/65; PULSE 81; RESP 18; O2SAT 97
[2022-10-21] MEDS: Buprenorphine/Naloxone 8/2 mg FILM 1 FILM SUBLINGUAL (18:25)
[2022-10-21] MEDS: QUEtiapine Fumarate 50 MG TABLET 150 MG PO (20:45)
--- NOTE | 2022-10-22 07:34 | HO.PSYCHPN ---
Documented by User: Yany Pittman MD 10/23/22 07:34 Subjective Subjective Date of Service: 10/22/22 Reason For Visit: suicide attempt-heroin overdose Subjective Notes: Conditional Voluntary Healthcare Proxy: No Guardianship: No Medical Problems Affecting Mental Status: No Interim History: Pt denies OD was purposeful - says was just fentanyl laced stuff that he sniffed that caused unresponsiveness0 hyper and trouble sleeping, hyperverbal - reports having adhd and ptsd plans to go to longer term rehab and program thinks it will help him Medication Compliance: Yes Side effects from medications: No Attending Groups: Yes Review of Systems Acute medical concerns: No Review of Systems: reports some congestion wants nasal spray - thinks it is due to snorting heroin Mental Status Exam Mental Status Exam Patient Appearance: Well Grooomed Patient Orientation: Person, Place, Time and Situation Level of Consciousness: Awake Patient Behavior: Talkative, Cooperative, Distractible and Impulsive Mood Description: Happy Affect Description: Euphoric Hallucinations: None Delusions: Not Present Thought Process: Goal Oriented Thought Content: positive for Racing Depressive Symptoms: Difficulty Sleeping Abnormal Motor Activity Signs and Symptoms: Hyperactivity Judgement: Fair Diagnostics Vital Signs (24Hr): Vital Signs - 24 hr 10/21/22 09:00 10/21/22 17:48 Temperature 97.6 F Pulse Rate 67 81 Respiratory Rate 18 18 Blood Pressure 121/72 149/65 H Pulse Oximetry 99 97 Oxygen Delivery Method Room Air Room Air BMI result Body Mass Index 24.3 Labs Results: 10/19/22 15:41 10/19/22 15:41 Labs: Laboratory Results - last 48 hr 10/21/22 10/21/22 07:58 07:58 Magnesium 2.1 Triglycerides 109 Cholesterol 165 LDL Cholesterol, Calc 94 HDL Cholesterol 50 Vitamin B12 444 Folate 7.8 TSH 1.04 Free T4 0.94 Imaging Radiology Impressions: ITS Impressions Chest X-Ray 10/18/22 20:54 IMPRESSION: No acute pulmonary process. Medications Medications Current Medications Acetaminophen (Acetaminophen 325 Mg Tablet) 650 mg PO Q6H PRN PRN Reason: Headache/Pain Mild Scale (1-3) Last Admin: 10/20/22 18:25 Dose: 650 mg Al Hydroxide/Mg Hydroxide (Magnesium Hydrox/Alum Hydrox 30 Ml Oral.Susp) 30 ml PO Q6H PRN PRN Reason: Heartburn/Nausea Albuterol Sulfate (Albuterol Sulfate 90 Mcg 8 Gm Inhaler) 2 puff INHALE RQ4H PRN PRN Reason: Shortness Of Breath Or Wheezing Last Admin: 10/21/22 14:03 Dose: 2 puff Buprenorphine/Naloxone (Buprenorphine/Naloxone 4/1 Mg Film) 1 film SUBLINGUAL ONCE PRN PRN Reason: Give 30min after 2mg dose if tolerated Last Admin: 10/20/22 18:26 Dose: 1 film Buprenorphine/Naloxone (Buprenorphine/Naloxone 8/2 Mg Film) 2 film SUBLINGUAL DAILY [facility] Last Admin: 10/21/22 08:25 Dose: 2 film Buprenorphine/Naloxone (Buprenorphine/Naloxone 8/2 Mg Film) 1 film SUBLINGUAL DAILY@1900 [facility] Last Admin: 10/21/22 18:25 Dose: 1 film Clonidine HCl (Clonidine Hcl 0.1 Mg Tablet) 0.1 mg PO Q4H PRN; Protocol PRN Reason: anxiety Last Admin: 10/21/22 20:45 Dose: 0.1 mg Fluoxetine HCl (Fluoxetine Hcl 10 Mg Capsule) 10 mg PO DAILY [facility] Hydrocortisone (Hydrocortisone 1 % Cream 28.35 Gm Tube) 1 appl TOPICAL BID PRN PRN Reason: eczema Hydroxyzine HCl (Hydroxyzine Hcl 50 Mg Tablet) 50 mg PO Q6H PRN PRN Reason: Anxiety Last Admin: 10/21/22 20:45 Dose: 50 mg Ibuprofen (Ibuprofen 600 Mg Tablet) 600 mg PO Q6H PRN PRN Reason: pain, moderate Magnesium Hydroxide (Milk Of Magnesia 30 Ml Oral.Susp) 30 ml PO DAILY PRN PRN Reason: Constipation Nicotine Polacrilex (Nicotine Polacrilex 2 Mg Gum) 4 mg BUCCAL Q2H PRN PRN Reason: Nicotine Cravings Last Admin: 10/21/22 18:25 Dose: 4 mg Quetiapine Fumarate (Quetiapine Fumarate 50 Mg Tablet) 50 mg PO TID PRN PRN Reason: anxiety, agitation Last Admin: 10/21/22 20:45 Dose: 50 mg Quetiapine Fumarate (Quetiapine Fumarate 50 Mg Tablet) 150 mg PO BEDTIME [facility] Last Admin: 10/21/22 20:45 Dose: 150 mg Allergies Allergies Allergy/AdvReac Type Severity Reaction Status Date / Time No Known Allergies Allergy Verified 02/09/22 08:45 Assessment & Plan Assessment & Plan (1) MDD (major depressive disorder), recurrent, severe, with psychosis: Status: Acute Code(s): F33.3 - Major depressive disorder, recurrent, severe with psychotic symptoms Assessment and Plan: ? more hypomanic than depressed - doesn't appear psychotic however on interview today (2) Post traumatic stress disorder (PTSD): Status: Acute Code(s): F43.10 - Post-traumatic stress disorder, unspecified (3) ADHD (attention deficit hyperactivity disorder): Status: Acute Code(s): F90.9 - Attention-deficit hyperactivity disorder, unspecified type Assessment and Plan: some mix of this with bipolar? (4) Opioid use disorder: Status: Acute Code(s): F11.90 - Opioid use, unspecified, uncomplicated Assessment and Plan: denies current withdrawl on suboxone!- was using these on streets and his mom and baby mom told him he didn't need it - then this happened- now he knows he needs MAT and a program (5) Cocaine use disorder: Status: Acute Code(s): F14.10 - Cocaine abuse, uncomplicated Plan Kun is a 32-year-old male who carries a dx of opioid use disorder, cocaine use disorder, and MDD recurrent with psychotic features. He presented to [facility] ED on 10/18/22 due to a suicide attempt by OD on heroin requiring 8 mg of intranasal Narcan. Precipitating factors include recent stressors of homelessness, financial stress. He recently left detox AMA in April or May 2022 to go back to work and provide for his kids financially, however he relapsed on substances shortly after. He started sniffing cocaine, this advanced to buying Percocet. Utox positive for opiates, fentanyl, cocaine, and cannabis. Pt has hx of AH in the context of depressive episodes and says he uses to get rid of the voices. Plan: Re-start seroquel at 150 mg HS for poor sleep and mood stability, as pt reports past benefit but says 100 mg was not effective for sleep in the ED setting. Increase vistaril PRN to 50 mg for anxiety. Q15 min safety checks, CV Monitor response to medications. Monitor for safety in the milieu. Discharge on stabilization. Patient seen. Chart reviewed. Discussed with team. Obtain collateral contact info?as needed I spent minutes with the patient and/or on the patient floor today, greater than?50% of which was spent counseling/coordinating care. Patient educated on: medication risk/benefits and substance abuse Informed Consent: understands Reason for contiued inpatient stay Substantial Risk for: rapid decompensation Documented by User: Fermín Gutierrez MD 10/24/22 10:38 Subjective Subjective Reason For Visit: suicide attempt-heroin overdose Diagnostics Labs Results: 10/19/22 15:41 10/19/22 15:41 Assessment & Plan Assessment & Plan (1) MDD (major depressive disorder), recurrent, severe, with psychosis: Status: Acute Code(s): F33.3 - Major depressive disorder, recurrent, severe with psychotic symptoms (2) Post traumatic stress disorder (PTSD): Status: Acute Code(s): F43.10 - Post-traumatic stress disorder, unspecified (3) ADHD (attention deficit hyperactivity disorder): Status: Acute Code(s): F90.9 - Attention-deficit hyperactivity disorder, unspecified type (4) Opioid use disorder: Status: Acute Code(s): F11.90 - Opioid use, unspecified, uncomplicated (5) Cocaine use disorder: Status: Acute Code(s): F14.10 - Cocaine abuse, uncomplicated Plan Kun is a 32-year-old male who carries a dx of PTSD, ADHD, opioid use disorder, cocaine use disorder, and MDD recurrent with psychotic features. He presented to [facility] ED on 10/18/22 due to a suicide attempt by OD on heroin requiring 8 mg of intranasal Narcan. Precipitating factors include recent stressors of homelessness, financial stress. He recently left detox AMA in April or May 2022 to go back to work and provide for his kids financially, however he relapsed on substances shortly after. He started sniffing cocaine, this advanced to buying Percocet. Utox positive for opiates, fentanyl, cocaine, and cannabis. Pt has hx of AH only when depressed or emotional. 10/21 feeling much better; no SI, no AVH; suboxone helping; agrees to prozac for anxiety/ptsd Plan:? 3 day Q15 min Suboxone 16/4mg Daily and 8/2mg at 1900 STARTed Prozac 10mg daily STARTed Clonidine prn for anxiety seroquel at 150 mg HS for poor sleep and mood stability,?? Increase vistaril PRN to 50 mg for anxiety. Monitor response to medications. Monitor for safety in the milieu. Discharge on stabilization. Patient seen. Chart reviewed. Discussed with team. Obtain collateral contact info?as needed
[2022-10-22] MEDS: Buprenorphine/Naloxone 8/2 mg FILM 2 FILM SUBLINGUAL (08:09)
[2022-10-22] MEDS: FLUoxetine HCl 10 MG CAPSULE PO (08:09)
[2022-10-22] MEDS: hydrOXYzine HCL 50 MG TABLET PO ×2 (08:09→18:17)
[2022-10-22] MEDS: QUEtiapine Fumarate 50 MG TABLET PO (08:10)
[2022-10-22] MEDS: Nicotine Polacrilex 2 MG GUM 4 MG BUCCAL ×3 (09:12→18:17)
[2022-10-22 10:50] VITALS: BP 140/67; PULSE 74; RESP 18; TEMP 36.3; O2SAT 97
[2022-10-22] MEDS: cloNIDine HCL 0.1 MG TABLET PO ×2 (12:00→16:59)
[2022-10-22] MEDS: Sodium Chloride 0.65 % Nasal 44 ML SPRBTL 1 SPRAY NOSTRIL-B (13:54)
[2022-10-22 14:28] LABS: COVID-19 Test Negative (Negative)
[2022-10-22 15:30] VITALS: BP 111/78; PULSE 65; RESP 16; TEMP 36.2; O2SAT 98
[2022-10-22] MEDS: Albuterol Sulfate 90 MCG 8 GM INHALER 2 PUFF INHALE ×2 (16:57→20:47)
[2022-10-22] MEDS: Ibuprofen 600 MG TABLET PO (17:02)
[2022-10-22] MEDS: Buprenorphine/Naloxone 8/2 mg FILM 1 FILM SUBLINGUAL (18:17)
[2022-10-22] MEDS: QUEtiapine Fumarate 50 MG TABLET 150 MG PO (20:45)
[2022-10-23] MEDS: FLUoxetine HCl 10 MG CAPSULE PO (07:57)
[2022-10-23] MEDS: Buprenorphine/Naloxone 8/2 mg FILM 2 FILM SUBLINGUAL (07:57)
[2022-10-23] MEDS: hydrOXYzine HCL 50 MG TABLET PO ×2 (07:57→13:14)
[2022-10-23] MEDS: QUEtiapine Fumarate 50 MG TABLET PO ×3 (07:57→18:49)
[2022-10-23 07:59] VITALS: BP 125/59; PULSE 54; RESP 16; TEMP 36.7; O2SAT 97
[2022-10-23] MEDS: Hydrocortisone 1 % Cream 28.35 GM TUBE 1 APPL TOPICAL (08:05)
[2022-10-23] MEDS: Sodium Chloride 0.65 % Nasal 44 ML SPRBTL 1 SPRAY NOSTRIL-B ×2 (08:05→20:37)
--- NOTE | 2022-10-23 10:15 | HO.PSYCHPN ---
Subjective Subjective Date of Service: 10/23/22 Reason For Visit: suicide attempt-heroin overdose Subjective Notes: Conditional Voluntary Healthcare Proxy: No Guardianship: No Medical Problems Affecting Mental Status: No Interim History: Pt continues excited about being here, needed this time away from others being on him about one thing or another of this od, and use of suboxone- Hoping to go to [facility], denies SI Medication Compliance: Yes Side effects from medications: No Attending Groups: Yes Review of Systems Acute medical concerns: No Medical Review of Systems: unchanged Mental Status Exam Mental Status Exam Patient Appearance: Well Grooomed Patient Orientation: Person, Place, Time and Situation Level of Consciousness: Awake Patient Behavior: Talkative, Cooperative, Distractible and Impulsive Mood Description: Happy Affect Description: Euphoric Hallucinations: None Delusions: Not Present Thought Process: Goal Oriented Thought Content: positive for Racing Depressive Symptoms: Difficulty Sleeping Abnormal Motor Activity Signs and Symptoms: Hyperactivity Judgement: Fair Diagnostics Vital Signs (24Hr): Vital Signs - 24 hr 10/22/22 10:50 10/22/22 15:30 10/23/22 07:59 Temperature 97.3 F 97.1 F 98.0 F Pulse Rate 74 65 54 Respiratory Rate 18 16 16 Blood Pressure 140/67 H 111/78 125/59 L Pulse Oximetry 97 98 97 Oxygen Delivery Method Room Air Room Air Room Air BMI result Body Mass Index 24.3 Labs Results: 10/19/22 15:41 10/19/22 15:41 Labs: Laboratory Results - last 48 hr 10/22/22 13:55 COVID-19 ([facility]) Negative COVID-19 Clin Com See Note Imaging Radiology Impressions: ITS Impressions Chest X-Ray 10/18/22 20:54 IMPRESSION: No acute pulmonary process. Medications Medications Current Medications Acetaminophen (Acetaminophen 325 Mg Tablet) 650 mg PO Q6H PRN PRN Reason: Headache/Pain Mild Scale (1-3) Last Admin: 10/20/22 18:25 Dose: 650 mg Al Hydroxide/Mg Hydroxide (Magnesium Hydrox/Alum Hydrox 30 Ml Oral.Susp) 30 ml PO Q6H PRN PRN Reason: Heartburn/Nausea Albuterol Sulfate (Albuterol Sulfate 90 Mcg 8 Gm Inhaler) 2 puff INHALE RQ4H PRN PRN Reason: Shortness Of Breath Or Wheezing Last Admin: 10/22/22 20:47 Dose: 2 puff Buprenorphine/Naloxone (Buprenorphine/Naloxone 4/1 Mg Film) 1 film SUBLINGUAL ONCE PRN PRN Reason: Give 30min after 2mg dose if tolerated Last Admin: 10/20/22 18:26 Dose: 1 film Buprenorphine/Naloxone (Buprenorphine/Naloxone 8/2 Mg Film) 2 film SUBLINGUAL DAILY [facility] Last Admin: 10/23/22 07:57 Dose: 2 film Buprenorphine/Naloxone (Buprenorphine/Naloxone 8/2 Mg Film) 1 film SUBLINGUAL DAILY@1900 [facility] Last Admin: 10/22/22 18:17 Dose: 1 film Clonidine HCl (Clonidine Hcl 0.1 Mg Tablet) 0.1 mg PO Q4H PRN; Protocol PRN Reason: anxiety Last Admin: 10/22/22 16:59 Dose: 0.1 mg Fluoxetine HCl (Fluoxetine Hcl 10 Mg Capsule) 10 mg PO DAILY [facility] Last Admin: 10/23/22 07:57 Dose: 10 mg Hydrocortisone (Hydrocortisone 1 % Cream 28.35 Gm Tube) 1 appl TOPICAL BID PRN PRN Reason: eczema Last Admin: 10/23/22 08:05 Dose: 1 appl Hydroxyzine HCl (Hydroxyzine Hcl 50 Mg Tablet) 50 mg PO Q6H PRN PRN Reason: Anxiety Last Admin: 10/23/22 07:57 Dose: 50 mg Ibuprofen (Ibuprofen 600 Mg Tablet) 600 mg PO Q6H PRN PRN Reason: pain, moderate Last Admin: 10/22/22 17:02 Dose: 600 mg Magnesium Hydroxide (Milk Of Magnesia 30 Ml Oral.Susp) 30 ml PO DAILY PRN PRN Reason: Constipation Nicotine Polacrilex (Nicotine Polacrilex 2 Mg Gum) 4 mg BUCCAL Q2H PRN PRN Reason: Nicotine Cravings Last Admin: 10/22/22 18:17 Dose: 4 mg Quetiapine Fumarate (Quetiapine Fumarate 50 Mg Tablet) 50 mg PO TID PRN PRN Reason: anxiety, agitation Last Admin: 10/23/22 07:57 Dose: 50 mg Quetiapine Fumarate (Quetiapine Fumarate 50 Mg Tablet) 150 mg PO BEDTIME [facility] Last Admin: 10/22/22 20:45 Dose: 150 mg Sodium Chloride (Sodium Chloride 0.65 % Nasal 44 Ml Sprbtl) 1 spray NOSTRIL-B Q1H PRN PRN Reason: Congestion Last Admin: 10/23/22 08:05 Dose: 1 spray Allergies Allergies Allergy/AdvReac Type Severity Reaction Status Date / Time No Known Allergies Allergy Verified 02/09/22 08:45 Assessment & Plan Assessment & Plan (1) MDD (major depressive disorder), recurrent, severe, with psychosis: Status: Acute Code(s): F33.3 - Major depressive disorder, recurrent, severe with psychotic symptoms Assessment and Plan: ? more hypomanic than depressed - doesn't appear psychotic however on interview today 10/23/22 dced fluoxetine (2) Post traumatic stress disorder (PTSD): Status: Acute Code(s): F43.10 - Post-traumatic stress disorder, unspecified (3) ADHD (attention deficit hyperactivity disorder): Status: Acute Code(s): F90.9 - Attention-deficit hyperactivity disorder, unspecified type Assessment and Plan: some mix of this with bipolar? (4) Opioid use disorder: Status: Acute Code(s): F11.90 - Opioid use, unspecified, uncomplicated Assessment and Plan: denies current withdrawl on suboxone!- was using these on streets and his mom and baby mom told him he didn't need it - then this happened- now he knows he needs MAT and a program (5) Cocaine use disorder: Status: Acute Code(s): F14.10 - Cocaine abuse, uncomplicated Plan Kun is a 32-year-old male who carries a dx of PTSD, ADHD, opioid use disorder, cocaine use disorder, and MDD recurrent with psychotic features. He presented to [facility] ED on 10/18/22 due to a suicide attempt by OD on heroin requiring 8 mg of intranasal Narcan. Precipitating factors include recent stressors of homelessness, financial stress. He recently left detox AMA in April or May 2022 to go back to work and provide for his kids financially, however he relapsed on substances shortly after. He started sniffing cocaine, this advanced to buying Percocet. Utox positive for opiates, fentanyl, cocaine, and cannabis. Pt has hx of AH only when depressed or emotional. 12/2 feeling much better; no SI, no AVH; suboxone helping; agrees to prozac for anxiety/ptsd Plan:? 3 day Q15 min Suboxone 16/4mg Daily and 8/2mg at 1900 STARTed Prozac 10mg daily STARTed Clonidine prn for anxiety seroquel at 150 mg HS for poor sleep and mood stability,?? Increase vistaril PRN to 50 mg for anxiety. Monitor response to medications. Monitor for safety in the milieu. Discharge on stabilization. Patient seen. Chart reviewed. Discussed with team. Obtain collateral contact info?as needed I spent minutes with the patient and/or on the patient floor today, greater than?50% of which was spent counseling/coordinating care. Patient educated on: substance abuse and therapeutic strategies Informed Consent: understands Reason for contiued inpatient stay Substantial Risk for: rapid decompensation
[2022-10-23] MEDS: Nicotine Polacrilex 2 MG GUM 4 MG BUCCAL ×2 (10:18→19:14)
[2022-10-23 16:54] VITALS: BP 133/60; PULSE 62; RESP 18; TEMP 35.9; O2SAT 97
[2022-10-23] MEDS: cloNIDine HCL 0.1 MG TABLET PO (18:49)
[2022-10-23] MEDS: Buprenorphine/Naloxone 8/2 mg FILM 1 FILM SUBLINGUAL (18:51)
[2022-10-23] MEDS: QUEtiapine Fumarate 200 MG TABLET PO (19:14)
[2022-10-24 06:00] VITALS: BP 122/57; PULSE 52; RESP 16; TEMP 36.6; O2SAT 98
[2022-10-24] MEDS: cloNIDine HCL 0.1 MG TABLET PO ×2 (08:28→13:04)
[2022-10-24] MEDS: QUEtiapine Fumarate 50 MG TABLET PO (08:28)
[2022-10-24] MEDS: Buprenorphine/Naloxone 8/2 mg FILM 2 FILM SUBLINGUAL (08:28)
[2022-10-24] MEDS: Nicotine Polacrilex 2 MG GUM 4 MG BUCCAL ×2 (09:33→14:05)
--- NOTE | 2022-10-24 10:37 | HO.PSYCHPN ---
Subjective Subjective Date of Service: 10/24/22 Reason For Visit: suicide attempt-heroin overdose Diagnostics Vital Signs (24Hr): Vital Signs - 24 hr 10/23/22 16:54 10/24/22 06:00 Temperature 96.6 F L 97.8 F Pulse Rate 62 52 Respiratory Rate 18 16 Blood Pressure 133/60 122/57 L Pulse Oximetry 97 98 Oxygen Delivery Method Room Air Room Air BMI result Body Mass Index 24.3 Labs Results: 10/19/22 15:41 10/19/22 15:41 Labs: Laboratory Results - last 48 hr 10/22/22 13:55 COVID-19 ([facility]) Negative COVID-19 Clin Com See Note Imaging Radiology Impressions: ITS Impressions Chest X-Ray 10/18/22 20:54 IMPRESSION: No acute pulmonary process. Medications Medications Current Medications Acetaminophen (Acetaminophen 325 Mg Tablet) 650 mg PO Q6H PRN PRN Reason: Headache/Pain Mild Scale (1-3) Last Admin: 10/20/22 18:25 Dose: 650 mg Al Hydroxide/Mg Hydroxide (Magnesium Hydrox/Alum Hydrox 30 Ml Oral.Susp) 30 ml PO Q6H PRN PRN Reason: Heartburn/Nausea Albuterol Sulfate (Albuterol Sulfate 90 Mcg 8 Gm Inhaler) 2 puff INHALE RQ4H PRN PRN Reason: Shortness Of Breath Or Wheezing Last Admin: 10/22/22 20:47 Dose: 2 puff Buprenorphine/Naloxone (Buprenorphine/Naloxone 4/1 Mg Film) 1 film SUBLINGUAL ONCE PRN PRN Reason: Give 30min after 2mg dose if tolerated Last Admin: 10/20/22 18:26 Dose: 1 film Buprenorphine/Naloxone (Buprenorphine/Naloxone 8/2 Mg Film) 2 film SUBLINGUAL DAILY [facility] Last Admin: 10/24/22 08:28 Dose: 2 film Buprenorphine/Naloxone (Buprenorphine/Naloxone 8/2 Mg Film) 1 film SUBLINGUAL DAILY@1900 [facility] Last Admin: 10/23/22 18:51 Dose: 1 film Clonidine HCl (Clonidine Hcl 0.1 Mg Tablet) 0.1 mg PO Q4H PRN; Protocol PRN Reason: anxiety Last Admin: 10/24/22 08:28 Dose: 0.1 mg Hydrocortisone (Hydrocortisone 1 % Cream 28.35 Gm Tube) 1 appl TOPICAL BID PRN PRN Reason: eczema Last Admin: 10/23/22 08:05 Dose: 1 appl Hydroxyzine HCl (Hydroxyzine Hcl 50 Mg Tablet) 50 mg PO Q6H PRN PRN Reason: Anxiety Last Admin: 10/23/22 13:14 Dose: 50 mg Ibuprofen (Ibuprofen 600 Mg Tablet) 600 mg PO Q6H PRN PRN Reason: pain, moderate Last Admin: 10/22/22 17:02 Dose: 600 mg Magnesium Hydroxide (Milk Of Magnesia 30 Ml Oral.Susp) 30 ml PO DAILY PRN PRN Reason: Constipation Nicotine Polacrilex (Nicotine Polacrilex 2 Mg Gum) 4 mg BUCCAL Q2H PRN PRN Reason: Nicotine Cravings Last Admin: 10/24/22 09:33 Dose: 4 mg Quetiapine Fumarate (Quetiapine Fumarate 50 Mg Tablet) 50 mg PO TID PRN PRN Reason: anxiety, agitation Last Admin: 10/24/22 08:28 Dose: 50 mg Quetiapine Fumarate (Quetiapine Fumarate 200 Mg Tablet) 200 mg PO BEDTIME [facility] Last Admin: 10/23/22 19:14 Dose: 200 mg Sodium Chloride (Sodium Chloride 0.65 % Nasal 44 Ml Sprbtl) 1 spray NOSTRIL-B Q1H PRN PRN Reason: Congestion Last Admin: 10/23/22 20:37 Dose: 1 spray Allergies Allergies Allergy/AdvReac Type Severity Reaction Status Date / Time No Known Allergies Allergy Verified 02/09/22 08:45 Assessment & Plan Assessment & Plan (1) MDD (major depressive disorder), recurrent, severe, with psychosis: Status: Acute Code(s): F33.3 - Major depressive disorder, recurrent, severe with psychotic symptoms Assessment and Plan: ? more hypomanic than depressed - doesn't appear psychotic however on interview today 10/23/22 dced fluoxetine (2) Post traumatic stress disorder (PTSD): Status: Acute Code(s): F43.10 - Post-traumatic stress disorder, unspecified (3) ADHD (attention deficit hyperactivity disorder): Status: Acute Code(s): F90.9 - Attention-deficit hyperactivity disorder, unspecified type Assessment and Plan: some mix of this with bipolar? (4) Opioid use disorder: Status: Acute Code(s): F11.90 - Opioid use, unspecified, uncomplicated Assessment and Plan: denies current withdrawl on suboxone!- was using these on streets and his mom and baby mom told him he didn't need it - then this happened- now he knows he needs MAT and a program (5) Cocaine use disorder: Status: Acute Code(s): F14.10 - Cocaine abuse, uncomplicated Plan Kun is a 32-year-old male who carries a dx of PTSD, ADHD, opioid use disorder, cocaine use disorder, and MDD recurrent with psychotic features. He presented to [facility] on 10/18/22 due to a suicide attempt by OD on heroin requiring 8 mg of intranasal Narcan. Precipitating factors include recent stressors of homelessness, financial stress. He recently left detox AMA in April or May 2022 to go back to work and provide for his kids financially, however he relapsed on substances shortly after. He started sniffing cocaine, this advanced to buying Percocet. Utox positive for opiates, fentanyl, cocaine, and cannabis. Pt has hx of AH only when depressed or emotional. 12/2 feeling much better; no SI, no AVH; suboxone helping; agrees to prozac for anxiety/ptsd Plan:? 3 day Q15 min Suboxone 16/4mg Daily and 8/2mg at 1900 STARTed Prozac 10mg daily STARTed Clonidine prn for anxiety seroquel at 150 mg HS for poor sleep and mood stability,?? Increase vistaril PRN to 50 mg for anxiety. Monitor response to medications. Monitor for safety in the milieu. Discharge on stabilization. Patient seen. Chart reviewed. Discussed with team. Obtain collateral contact info?as needed I spent minutes with the patient and/or on the patient floor today, greater than?50% of which was spent counseling/coordinating care.
[2022-10-24] MEDS: hydrOXYzine HCL 50 MG TABLET PO (13:04)
--- NOTE | 2022-10-24 13:52 | PM.PSYDC ---
DS: Providers Provider Date of Service: 10/24/22 Date of admission: 10/20/22 14:50 Date of discharge: 10/24/22 Primary care physician: Unknown Physician Attending physician on admission: Fermín Gutierrez Attending physician on discharge: Fermín Gutierrez DS: Diagnosis Discharge Diagnosis (1) MDD (major depressive disorder), recurrent, severe, with psychosis: Status: Resolved (2) Post traumatic stress disorder (PTSD): Status: Acute (3) ADHD (attention deficit hyperactivity disorder): Status: Acute (4) Opioid use disorder: Status: Acute (5) Cocaine use disorder: Status: Acute DS: Medications Discharge Medications Home Medications: Previous Rx's Medication Instructions Recorded albuterol sulfate 90 mcg/actuation 2 puff inhalation Q4H PRN 10/24/22 aerosol inhaler (ProAir HFA) Shortness Of Breath Or Wheezing 30 days #6.7 grams buprenorphine 8 mg-naloxone 2 mg See Rx Instructions .Route 10/24/22 sublingual film (Suboxone) .COMPLEX #6 ea clonidine HCl 0.1 mg tablet 0.1 mg PO BID PRN anxiety 30 days 10/24/22 #60 tabs fluoxetine 10 mg capsule 10 mg PO DAILY 30 days #30 caps 10/24/22 hydroxyzine HCl 50 mg tablet 50 mg PO BID PRN Anxiety 30 days 10/24/22 #60 tabs nicotine (polacrilex) 2 mg gum 4 mg buccal Q2H PRN Nicotine 10/24/22 Cravings 30 days #100 ea quetiapine 200 mg tablet 200 mg PO BEDTIME 30 days #30 tabs 10/24/22 Mental Status Exam Mental Status Exam Narrative: A&O. Behavior is friendly, cooperative, engaged; In casual, appropriate attire, glasses, tattoos, well kempt, normal body habitus. Good eye contact, attentive; Mood: good and affect congruent, bright; No Tics or Tremors. No abnormal involuntary movements. Non-pressured speech process, spontaneous with regular rate and rhythm, normal volume and prosody. No prolonged speech latency or dysarthria. Thought content on treatment; no delusional/paranoid ideations. Denies SI/SIB/HI upon inquiry. Denies AVH and not internally preoccupied; No known cognitive or memory impairment. Insight/ Judgment fair. Data Data Completed and Pending Completed studies during hospitalization [Text1]: 10/18/22 10/18/22 10/19/22 21:23 21:23 15:41 WBC 7.8 RBC 5.53 Hgb 16.3 Hct 48.6 MCV 87.9 MCH 29.5 MCHC 33.5 RDW 12.3 Plt Count 303 D MPV 9.6 Absolute Nucleated RBC 0.000 Nucleated RBC % (auto) 0.0 Sodium Potassium Chloride Carbon Dioxide Anion Gap BUN Creatinine Estim Creat Clear Calc Estimated GFR Random Glucose Calcium Magnesium Total Bilirubin AST ALT Alkaline Phosphatase Total Protein Albumin Triglycerides Cholesterol LDL Cholesterol, Calc HDL Cholesterol Vitamin B12 Folate TSH Free T4 Urine Opiates Screen POSITIVE H Urine Fentanyl Screen POSITIVE H Ur Barbiturates Screen Not Detected Ur Phencyclidine Scrn Not Detected Ur Amphetamines Screen Not Detected U Benzodiazepines Scrn Not Detected Urine Cocaine Screen POSITIVE H U Marijuana (THC) Screen POSITIVE H COVID-19 ([facility]) COVID-19 Clin Com Influenza Type A (PCR) NEGATIVE Influenza Type B (PCR) NEGATIVE RSV RNA Qual (PCR) NEGATIVE SARS-CoV-2 RNA (RT-PCR) NEGATIVE 10/19/22 10/21/22 10/21/22 15:41 07:58 07:58 WBC RBC Hgb Hct MCV MCH MCHC RDW Plt Count MPV Absolute Nucleated RBC Nucleated RBC % (auto) Sodium 139 Potassium 4.3 Chloride 100 Carbon Dioxide 30 H Anion Gap 13 BUN 9 Creatinine 0.98 Estim Creat Clear Calc 115.2 Estimated GFR > 60 Random Glucose 129 H Calcium 9.7 D Magnesium 2.1 Total Bilirubin 0.8 AST 33 ALT 47 H Alkaline Phosphatase 68 Total Protein 7.4 Albumin 4.6 Triglycerides 109 Cholesterol 165 LDL Cholesterol, Calc 94 HDL Cholesterol 50 Vitamin B12 444 Folate 7.8 TSH 1.04 Free T4 0.94 Urine Opiates Screen Urine Fentanyl Screen Ur Barbiturates Screen Ur Phencyclidine Scrn Ur Amphetamines Screen U Benzodiazepines Scrn Urine Cocaine Screen U Marijuana (THC) Screen COVID-19 ([facility]) COVID-19 Clin Com Influenza Type A (PCR) Influenza Type B (PCR) RSV RNA Qual (PCR) SARS-CoV-2 RNA (RT-PCR) 10/22/22 13:55 WBC RBC Hgb Hct MCV MCH MCHC RDW Plt Count MPV Absolute Nucleated RBC Nucleated RBC % (auto) Sodium Potassium Chloride Carbon Dioxide Anion Gap BUN Creatinine Estim Creat Clear Calc Estimated GFR Random Glucose Calcium Magnesium Total Bilirubin AST ALT Alkaline Phosphatase Total Protein Albumin Triglycerides Cholesterol LDL Cholesterol, Calc HDL Cholesterol Vitamin B12 Folate TSH Free T4 Urine Opiates Screen Urine Fentanyl Screen Ur Barbiturates Screen Ur Phencyclidine Scrn Ur Amphetamines Screen U Benzodiazepines Scrn Urine Cocaine Screen U Marijuana (THC) Screen COVID-19 ([facility]) Negative COVID-19 Clin Com See Note Influenza Type A (PCR) Influenza Type B (PCR) RSV RNA Qual (PCR) SARS-CoV-2 RNA (RT-PCR) Imaging Diagnostic Imaging Impressions Chest X-Ray 10/18/22 20:54 IMPRESSION: No acute pulmonary process. DS: Summary Hospital Course Hospital Course: HPI: Kun is a 32-year-old male who carries a dx of PTSD, ADHD, opioid use disorder, cocaine use disorder, and MDD recurrent with psychotic features. He presented to [facility] on 10/18/22 due to a suicide attempt by OD on heroin requiring 8 mg of intranasal Narcan. Precipitating factors include recent stressors of homelessness, financial stress. He recently left detox AMA in April or May 2022 to go back to work and provide for his kids financially, however he relapsed on substances shortly after. He started sniffing cocaine, this advanced to buying Percocet. Utox positive for opiates, fentanyl, cocaine, and cannabis. Pt has hx of AH only when depressed or emotional. Hospital course: On admission, patient was already saying he felt much better. He reported that all depression is resolved and he's glad he's alive and is without any SI at all. He expressed remorse for his attempt and especially so regarding the effect it would have had on his kids. He Says never again will he attempt. Denies any hx of past self harm. Patient placed a 3 day notice, wanting discharge soon however he was also wanting treatment. Patient was started on Prozac for anxiety/ptsd; also started on Clonidine for breakthrough anxiety but of which he found helpful. Initially he was in opiate withdrawal, but was re-started on Suboxone which he'd been on in the past to good effect. Seroquel was increased for poor sleep. Patient attended groups; he could be bossy with others but was engaged in treatment.? He reported eating and sleeping well and felt medication regimen was helpful and that he'd continue on it. Pt was also optimistic about staying sober saying in past Suboxone helped with this. Patient's 3 day approached and remained eager for discharge, maintaining that he was safe, w/out any SI and that he would reach out for help if every felt otherwise. While he He was not in imminent risk for harm to self or others and his request was honored.? Time spent discussing smoking cessation with patient: 3 to 10 minutes Status at Discharge Functional status at discharge: independent ambulation Overall status at discharge: patient is back to baseline Time Spent with Patient Time attestation: Total time spent providing and/or coordinating discharge services: Time spent: Less than 30 minutes Discharge Plan Discharge Anticipated Discharge Date/Time: 10/24/22 14:30 Patient Disposition: Home, Self-Care Discharge Diagnosis: MDD, recurrent, severe with psychotic features, in full remission Referrals: [facility] [Other] - 10/25/22 1:15 pm (Initial Appointment with [facility] for Suboxone, medication assisted treatment (MAT) Appointment is in person at [facility], [id number]) Physician,Unknown J [Primary Care Provider] - 1 Week (please follow up with [facility] [phone]) Discharge Medications: New nicotine (polacrilex) 2 mg Gum 4 mg buccal Q2H PRN (Reason: Nicotine Cravings) 30 Days Qty: 100 0RF clonidine HCl 0.1 mg Tablet 0.1 mg PO BID PRN (Reason: anxiety) 30 Days Qty: 60 0RF Protocol: Hold for SBP< HOLD for SBP < : 90 buprenorphine-naloxone [Suboxone] 8-2 mg Film See Rx Instructions .ROUTE .COMPLEX Qty: 6 0RF Rx Instructions: take 2 films in the morning and 1 film in the evening fluoxetine 10 mg Capsule 10 mg PO DAILY 30 Days Qty: 30 0RF hydroxyzine HCl 50 mg Tablet 50 mg PO BID PRN (Reason: Anxiety) 30 Days Qty: 60 0RF quetiapine 200 mg Tablet 200 mg PO BEDTIME 30 Days Qty: 30 0RF Continued albuterol sulfate [ProAir HFA] 90 mcg/actuation HFA aerosol inhaler 2 puff inhalation Q4H PRN (Reason: Shortness Of Breath Or Wheezing) 30 Days Qty: 6.7 0RF Discharge Orders: Discharge Order (Routine); Ordered 10/24/22 Ordered By: Fermín Gutierrez Diet: Regular diet Activity on Discharge: As tolerated Stand Alone Forms: Patient Portal Discharge page, Community Support Care Plan Goals: Maintain mood and safe behaviors Take medications as prescribed Continue to pursue sobriety Practice coping skills Continue with outpatient providers and reach out to them as needed Health Concerns: Mood stability and behaviors Sobriety Plan of Treatment: Follow up with your PCP, psychiatric provider and other outpatient providers regarding above concerns Take medications as prescribed Assessment: Risk assessment at time of discharge:? Patient was interviewed prior to discharge and found to be fully oriented and without any SI or HI. Patient has insight and demonstrates good judgment in terms of wanting to pursue treatment. Patient is not in imminent risk of harm to self or others and has a safety plan that includes presenting to the closest ER or calling 911 if feeling unsafe.? Patient has been observed closely by nursing and unit staff throughout admission; patient has not engaged in any behaviors that suggest dangerousness to self or others and has demonstrated appropriate behaviors and impulse control Discharge Date/Time: 10/24/22 15:00
[2022-10-24] MEDS: FLUoxetine HCl 10 MG CAPSULE PO (14:06)
[2022-10-24] MEDS: Naloxone HCl Nasal TAKE HOME 4 MG SPRAY NOSTRILALT (14:07)
== END 2022-10-24 15:00 | disposition home or self-care (01) | DRG 751 ==
LOC: HO.ED 10-20 14:15 → HO.PM5 10-20 14:54
PROVIDERS: Nurse Practitioner Family; Psychiatry & Neurology Psychiatry; Admitting Provider Psychiatry & Neurology Psychiatry; Emergency Provider Internal Medicine; Visit Provider Clinical Nurse Specialist Psychiatric/Mental Health, Adult
DX: F33.3 Major depressive disorder, recurrent, severe with psychotic symptoms (principal); F11.20 Opioid dependence, uncomplicated; F17.210 Nicotine dependence, cigarettes, uncomplicated; T40.1X2A Poisoning by heroin, intentional self-harm, initial encounter; F43.10 Post-traumatic stress disorder, unspecified; F90.9 Attention-deficit hyperactivity disorder, unspecified type; Z59.02 Unsheltered homelessness; F14.10 Cocaine abuse, uncomplicated; Z71.6 Tobacco abuse counseling; Z20.822 Contact with and (suspected) exposure to COVID-19; Z79.899 Other long term (current) drug therapy
CPT/HCPCS: 0241U; 36415; 71045; 80053; 80061; 80307; 82607; 82746; 83735; 84439; 84443; 85027; 87635; 93005; 99285

== ENCOUNTER 2022-12-16 15:20 | Emergency (ER) | payer OTHER, SELFPAY ==
[2022-12-16 15:34] VITALS: BP 126/93; PULSE 103; RESP 18; TEMP 36.1; O2SAT 94; BMI 24.4
--- NOTE | 2022-12-16 15:34 | ED_ITS ---
HPI - General Adult General Chief complaint: Wound/Laceration <KARIN Lozano - Last Filed: 12/16/22 15:36> Stated complaint: finger lac yesterday <KARIN Lozano - Last Filed: 12/16/22 15:36> Time Seen by Provider: 12/16/22 16:53 <KARIN Lozano - Last Filed: 12/16/22 15:36> Source: patient <KARIN Benito - Last Filed: 12/16/22 17:27> Mode of arrival: ambulatory <KARIN Benito - Last Filed: 12/16/22 17:27> Limitations: no limitations <KARIN Benito - Last Filed: 12/16/22 17:27> History of Present Illness HPI narrative: 32-year-old male presenting to the ER with complaints of a laceration to his left index finger that occurred yesterday around 21:00 with a steak knife while he was at work. He reports he is up-to-date on tetanus. He denies any bony tenderness or thoughts of foreign bodies or any weakness or paresthesias or any other symptoms complaints concerns or injuries at this time. <KARIN Benito - Last Filed: 12/16/22 17:27> MD complaint: Finger laceration left index finger <KARIN Benito - Last Filed: 12/16/22 17:27> Onset (ago): day(s) (Last night) <KARIN Benito - Last Filed: 12/16/22 17:27> Related Data Home medications: Previous Rx's Medication Instructions Recorded albuterol sulfate 90 mcg/actuation 2 puff inhalation Q4H PRN 10/24/22 aerosol inhaler (ProAir HFA) Shortness Of Breath Or Wheezing 30 days #6.7 grams buprenorphine 8 mg-naloxone 2 mg See Rx Instructions .Route 10/24/22 sublingual film (Suboxone) .COMPLEX #6 ea clonidine HCl 0.1 mg tablet 0.1 mg PO BID PRN anxiety 30 days 10/24/22 #60 tabs fluoxetine 10 mg capsule 10 mg PO DAILY 30 days #30 caps 10/24/22 hydroxyzine HCl 50 mg tablet 50 mg PO BID PRN Anxiety 30 days 10/24/22 #60 tabs nicotine (polacrilex) 2 mg gum 4 mg buccal Q2H PRN Nicotine 10/24/22 Cravings 30 days #100 ea quetiapine 200 mg tablet 200 mg PO BEDTIME 30 days #30 tabs 10/24/22 albuterol sulfate 90 mcg/actuation 1 inh inhalation QID PRN shortness 12/16/22 aerosol inhaler of breath or wheezing #8.5 grams cephalexin 500 mg capsule 500 mg PO BID 7 days #14 caps 12/16/22 <KARIN Lozano - Last Filed: 12/16/22 15:36> Allergies/adverse reactions: Allergies Allergy/AdvReac Type Severity Reaction Status Date / Time No Known Allergies Allergy Verified 02/09/22 08:45 <KARIN Lozano - Last Filed: 12/16/22 15:36> Review of Systems Review of Systems: Constitutional : No Fever, No Chills, Cardiovascular : No Chest Pain, No SOB Respiratory : No Dyspnea Gastrointestinal : No abdominal pain Musculoskeletal : No Joint Swelling Skin : positive skin laceration, No Foreign bodies, No rash, No surrounding erythema Neuro : No Weakness, No Numbness/tingling Psych : No SI/HI/thoughts of self injury <KARIN Benito - Last Filed: 12/16/22 17:27> Yes all other systems are reviewed and are negative <KARIN Benito - Last Filed: 12/16/22 17:27> [facility] Past Medical History Attestation statement: The following information was validated with the patient. <KARIN Benito - Last Filed: 12/16/22 17:27> Source: old records reviewed and nursing notes reviewed <KARIN Benito - Last Filed: 12/16/22 17:27> Medical History: Medical History ADHD (attention deficit hyperactivity disorder) Patient denies medical problems Post traumatic stress disorder (PTSD) Substance abuse <KARIN Lozano - Last Filed: 12/16/22 15:36> Surgical History: Surgical History No pertinent past surgical history <KARIN Lozano - Last Filed: 12/16/22 15:36> Family History Family History: Family History Mother No problems noted. Father No problems noted. <KARIN Lozano - Last Filed: 12/16/22 15:36> Social History Social History: Social History Household Members Other:: Mother Housing: Apartment Do you presently have visiting nurse or other home services: No Alcohol intake: unknown Patient Tobacco Use Status: Current everyday Tobacco user Tobacco use type: Cigarette Cigarette Packs Per Day: 0.5 Cigarettes Per Day: 10.0 e-Cigarette/Vaping Use: Never Used Second Hand Smoke Exposure: No Substance Use Type: Crack/Cocaine, Heroin, Marijuana, Painkillers and Prescription Drugs Advance Directives: No Advance Directives Information Provided: No service: No Current occupational status: unemployed Sexual orientation: Don't Know Cognitive needs: No Hearing needs: No Vision needs: No <KARIN Lozano Last Filed: 12/16/22 15:36> Physical Exam ED Vital Signs: Vital Signs - 24 hr 12/16/22 15:34 Temperature 97.0 F Pulse Rate 103 H Respiratory Rate 18 Blood Pressure 126/93 H Pulse Oximetry 94 Oxygen Delivery Method Room Air BMI result Body Mass Index 24.4 <KARIN Lozano - Last Filed: 12/16/22 15:36> Vital Signs - 24 hr 12/16/22 15:34 Temperature 97.0 F Pulse Rate 103 H Respiratory Rate 18 Blood Pressure 126/93 H Pulse Oximetry 94 Oxygen Delivery Method Room Air BMI result Body Mass Index 24.4 Vital signs have been reviewed and all within normal limits <KARIN Benito L ast Filed: 12/16/22 17:27> Appearance: Alert. Oriented X3. No acute distress. Head: Normal external exam. Normocephalic. Eyes: PERRLA. EOMI. Conjunctiva and sclera normal. Eyelids normal. ENT: Pharynx normal. Uvula midline. Moist mucous membranes. No trismus noted. No drooling noted. No muffled voice noted. Neck: Normal inspection. Neck supple. FROM. No adenopathy. No meningeal signs. CVS: Normal heart rate and rhythm. Heart sound normal. No murmurs noted. Pulses normal throughout. Respiratory: No respiratory distress. Painless inspiration. Back: Full range of motion noted. Skin: Skin warm and dry. Normal skin color. Normal skin turgor. To left index finger patient has a 1 cm flap laceration intermediate no foreign bodies or bony tenderness or obvious ligamentous or tendon injury noted. No additional rashes/lesions/lacerations noted. Extremities: Extremities exhibit normal range of motion. Extremities nontender. Neuro: Oriented X 3. No motor deficit. No sensory deficit. Reflexes normal. Normal steady gait. CN's II-XII intact bilaterally? <KARIN Benito - Last Filed: 12/16/22 17:27> Course Course Course Narrative: RME performed by Tanvi Stratton PA-C. Patient is a 32 year old male presenting to the emergency department with a left ring finger laceration. Patient states that yesterday he cut his finger with a knife at work. Patient states that he is up to date on tetanus. Patient has a laceration to the left index finger. Patient will need sutures. Patient placed back in the waiting room pending room availability. <KARIN Lozano Last Filed: 12/16/22 15:36> RME performed by Tanvi Stratton PA-C. Patient is a 32 year old male presenting to the emergency department with a left ring finger laceration. Patient states that yesterday he cut his finger with a knife at work. Patient states that he is up to date on tetanus. Patient has a laceration to the left index finger. Patient will need sutures. Patient placed back in the waiting room pending room availability. <KARIN Benito Last Filed: 12/16/22 17:27> Reevaluation(s) Reevaluation #1: Patient now status post laceration repair with 5 interrupted sutures. Tetanus is up-to-date therefore no tetanus given today. No imaging indicated at this time. Will DC home with symptomatic treatment antibiotics along with instructions to return in 10-14 days for suture removal and to follow up prior if signs of infection. Patient understands agrees the plan. <KARIN Benito Last Filed: 12/16/22 17:27> Time: 17:25 <KARIN Benito Last Filed: 12/16/22 17:27> Procedures Laceration Laceration 1: Site: hand (Index finger) <KARIN Benito - Last Filed: 12/16/22 17:27> Side (If applicable): left <KARIN Benito - Last Filed: 12/16/22 17:27> Size (cm): 1 <KARIN Benito - Last Filed: 12/16/22 17:27> Description: flap and irregular <KARIN Benito - Last Filed: 12/16/22 17:27> Depth: simple, single layer <KARIN Benito - Last Filed: 12/16/22 17:27> Local Anesthetic: lidocaine 1% <KARIN Benito - Last Filed: 12/16/22 17:27> Amount of anesthesia used (mL): 5 <KARIN Benito Last Filed: 12/16/22 17:27> Pre-repair: wound explored, irrigated extensively and deep structures intact <KARIN Benito - Last Filed: 12/16/22 17:27> Skin layer closed with: nylon <KARIN Benito - Last Filed: 12/16/22 17:27> Size (cm): 5-0 <KARIN Benito - Last Filed: 12/16/22 17:27> Number of sutures: 5 <KARIN Benito - Last Filed: 12/16/22 17:27> Technique: simple, interrupted <KARIN Benito Last Filed: 12/16/22 17:27> Discharge Plan Discharge Clinical Impression: Finger laceration <KARIN Lozano - Last Filed: 12/16/22 15:36> Patient Disposition: Home, Self-Care <KARIN Lozano - Last Filed: 12/16/22 15:36> Instructions: Finger Laceration (ED) <KARIN Lozano - Last Filed: 12/16/22 15:36> Prescriptions: New albuterol sulfate 90 mcg/actuation HFA aerosol inhaler 1 inh inhalation QID PRN (Reason: shortness of breath or wheezing) Qty: 8.5 0RF cephalexin 500 mg capsule 500 mg PO BID 7 Days Qty: 14 0RF No Action nicotine (polacrilex) 2 mg Gum 4 mg buccal Q2H PRN (Reason: Nicotine Cravings) 30 Days Qty: 100 0RF clonidine HCl 0.1 mg Tablet 0.1 mg PO BID PRN (Reason: anxiety) 30 Days Qty: 60 0RF Protocol: Hold for SBP< HOLD for SBP < : 90 buprenorphine-naloxone [Suboxone] 8-2 mg Film See Rx Instructions .ROUTE .COMPLEX Qty: 6 0RF Rx Instructions: take 2 films in the morning and 1 film in the evening fluoxetine 10 mg Capsule 10 mg PO DAILY 30 Days Qty: 30 0RF hydroxyzine HCl 50 mg Tablet 50 mg PO BID PRN (Reason: Anxiety) 30 Days Qty: 60 0RF quetiapine 200 mg Tablet 200 mg PO BEDTIME 30 Days Qty: 30 0RF albuterol sulfate [ProAir HFA] 90 mcg/actuation HFA aerosol inhaler 2 puff inhalation Q4H PRN (Reason: Shortness Of Breath Or Wheezing) 30 Days Qty: 6.7 0RF <KARIN Lozano - Last Filed: 12/16/22 15:36> Referrals: Roxy Barrett PA [Emergency Midlevel Provider] - 10 days (For suture removal) Alana Sena MD [Primary Care Provider] - <KARIN Lozano - Last Filed: 12/16/22 15:36> Stand Alone Forms: Work/School Release <KARIN Lozano - Last Filed: 12/16/22 15:36>
== END 2022-12-16 17:31 | disposition home or self-care (01) ==
PROVIDERS: Emergency Provider Emergency Medicine; PCP Internal Medicine
DX: S61.211A Laceration without foreign body of left index finger without damage to nail, initial encounter (principal); W26.0XXA Contact with knife, initial encounter; Y93.G1 Activity, food preparation and clean up; Y92.511 Restaurant or cafe as the place of occurrence of the external cause; Y99.0 Civilian activity done for income or pay
CPT/HCPCS: 12041; 99282; 99284

== ENCOUNTER 2023-02-13 11:58 | Emergency (ER) | payer OTHER, SELFPAY ==
--- NOTE | ~2023-02-13 | US_ITS ---
EXAMINATION: US RIGHT GROIN SUPERFICIAL SOFT TISSUES, LIMITED/FOLLOW UP CLINICAL INFORMATION: Right groin swelling. Rule out hernia. COMPARISON: None available. TECHNIQUE: Limited, directed ultrasound examination of the right groin was performed in the region of lumps as indicated by the patient. US/US pelvic limited FINDINGS/IMPRESSION: No hernia is demonstrated on the images submitted. Images demonstrate two, borderline mildly enlarged right inguinal lymph nodes measuring 1.2 cm or less in short axis and demonstrating normal fatty tereza. They may be relatively hypervascular. Differential diagnosis includes, but is not limited to, reactive. Recommend clinical correlation and follow-up as clinically indicated.
--- NOTE | ~2023-02-13 | US_ITS ---
EXAMINATION: US VENOUS ULTRASOUND WITH DOPPLER LOWER EXTREMITY, RIGHT CLINICAL INFORMATION: Right leg swelling. COMPARISON: None available. TECHNIQUE: Ultrasound of the deep veins is performed from the hip to the calf with compression sonography and color and pulse Doppler assessment. Spectral analysis with color-flow imaging is performed. FINDINGS: There is normal venous compression and respiratory variation and augmented flow. The visualized common femoral vein, superficial femoral vein, profunda femoral vein, popliteal vein, and the trifurcation region shows no evidence of deep venous thrombosis. There is no significant popliteal fossa cyst. US/US venous duplex LE RT IMPRESSION: No evidence of right lower extremity deep venous thrombosis.
[2023-02-13 12:22] VITALS: BP 113/45; PULSE 55; RESP 20; TEMP 37; O2SAT 91; BMI 20.9
--- NOTE | 2023-02-13 12:27 | ED_ITS ---
HPI - General Adult General Chief complaint: ETOH/Substance Use <KARIN Perdue - Last Filed: 02/26/23 12:54> Stated complaint: Rash R Side Abd & R Lower Leg <KARIN Perdue - Last Filed: 02/26/23 12:54> Time Seen by Provider: 02/13/23 13:19 <KARIN Perdue - Last Filed: 02/26/23 12:54> Source: patient <Amarjit Al MD - Last Filed: 02/13/23 18:32> Mode of arrival: ambulatory <Amarjit Al MD - Last Filed: 02/13/23 18:32> Limitations: no limitations <Amarjit Al MD - Last Filed: 02/13/23 18:32> History of Present Illness HPI narrative: 32-year-old male with substance abuse presents 2 issues. Patient has left leg redness, pain. It is unclear when this started. He has no fevers, no chills. Denies any injuries. Pain [id number] in nature. Worse with palpation. The pain does not radiate. Additionally, patient complains of right groin pain. He has noticed a mass there. This started proximal 1 year ago. He was told it might be a hernia was never really inform exactly what it is. Denies any nausea, vomiting, failure to pass stool or flatus. Pain is worse movement and palpation. Pain is not radiate. Does not associated with abdominal swelling. <Amarjit Al MD - Last Filed: 02/13/23 18:32> Related Data Home medications: Home Medications Medication Instructions Recorded Confirmed multivitamin 1 tab PO DAILY 02/14/23 02/14/23 Previous Rx's Medication Instructions Recorded clonidine HCl 0.1 mg tablet 0.1 mg PO BID PRN anxiety 30 days 01/27/23 #60 tabs hydroxyzine HCl 50 mg tablet 50 mg PO BID PRN Anxiety 30 days 01/27/23 #60 tabs albuterol sulfate 90 mcg/actuation 2 puff inhalation Q6H PRN 02/16/23 aerosol inhaler shortness of breath or wheezing 30 days #8 grams doxycycline monohydrate 100 mg 100 mg PO BID 6 days #12 caps 02/16/23 capsule fluoxetine 10 mg capsule 10 mg PO DAILY 30 days #30 caps 02/16/23 nicotine (polacrilex) 2 mg gum 4 mg buccal Q2H PRN Nicotine 02/16/23 Cravings 30 days #100 ea quetiapine 200 mg tablet 200 mg PO BEDTIME 30 days #30 tabs 02/16/23 <KARIN Perdue - Last Filed: 02/26/23 12:54> Allergies/adverse reactions: Allergies Allergy/AdvReac Type Severity Reaction Status Date / Time No Known Allergies Allergy Verified 02/09/22 08:45 <KARIN Perdue - Last Filed: 02/26/23 12:54> [facility] Past Medical History Medical History: Medical History ADHD (attention deficit hyperactivity disorder) Patient denies medical problems Post traumatic stress disorder (PTSD) Substance abuse <KARIN Perdue - Last Filed: 02/26/23 12:54> Surgical History: Surgical History No pertinent past surgical history <KARIN Perdue - Last Filed: 02/26/23 12:54> Family History Family History: Family History Mother No problems noted. Father No problems noted. <KARIN Perdue - Last Filed: 02/26/23 12:54> Social History Social History: Social History Household Members: Family Household Members Other:: Mother Housing: Apartment Do you presently have visiting nurse or other home services: No Alcohol intake: unknown Patient Tobacco Use Status: Current everyday Tobacco user Tobacco use type: Cigarette Cigarette Packs Per Day: 1.5 Cigarettes Per Day: 30.0 Years Smoked: 10 Smoked in Last 30 Days: Yes e-Cigarette/Vaping Use: Never Used Patient Interested in Nicotine Replacement: Yes Patient Given Instructions on How to Stop Smoking: Yes Date Education Initiated: 02/15/23 Second Hand Smoke Exposure: Yes Use of substances other than those prescribed or required for medical reasons: Yes Substance Use Type: Crack/Cocaine, Heroin and Marijuana Substance Use Frequency: Chronic Longstanding Last Used Substance: Just Prior to Admission Currently Displaying Signs/Symptoms of Drug Intoxication Withdrawal: No Any prior treatment program specific to substance use: Yes (formerly took suboxone) Have you been hit, kicked, punched, or otherwise hurt by someone within the past year? If so, by whom?: No Do you feel safe in your current relationship?: No Current Relationship Is there a partner from a previous relationship who is making you feel unsafe now?: No Are you made to feel afraid or neglected: No Advance Directives: No Advance Directives Information Provided: No Healthcare Proxy: No Guardian: No Do you have thoughts of harming others: None Do you have a plan to hurt others: No Plan Recently lost weight without trying: Yes How much weight loss: 2-13 pounds Eating poorly because of decreased appetite: Yes Nutrition screen score: 4 Nutrition Risks: No Nutritional Risk Poor oral hygiene: No service: No Current occupational status: unemployed Sexual orientation: Straight/Heterosexual Cognitive needs: No Hearing needs: No Vision needs: No <KARIN Perdue - Last Filed: 02/26/23 12:54> Physical Exam ED Vital Signs: Vital Signs - 24 hr 02/13/23 12:22 02/13/23 14:27 02/13/23 14:29 Temperature 98.6 F Pulse Rate 55 42 L 56 Respiratory Rate 20 12 Blood Pressure 113/45 L 95/49 L 100/62 Pulse Oximetry 91 L 96 Oxygen Delivery Method Room Air Room Air 02/13/23 14:27 02/13/23 14:28 02/13/23 16:00 Temperature 98.7 F Pulse Rate 56 49 L 40 L Respiratory Rate 14 Blood Pressure 100/62 97/52 L 100/59 L Pulse Oximetry 99 Oxygen Delivery Method Room Air 02/13/23 18:00 Temperature 97.2 F Pulse Rate 54 Respiratory Rate 16 Blood Pressure 93/52 L Pulse Oximetry 97 Oxygen Delivery Method Room Air BMI result Body Mass Index 20.9 <KARIN Perdue - Last Filed: 02/26/23 12:54> Vital Signs - 24 hr 02/13/23 12:22 02/13/23 14:27 02/13/23 14:29 Temperature 98.6 F Pulse Rate 55 42 L 56 Respiratory Rate 20 12 Blood Pressure 113/45 L 95/49 L 100/62 Pulse Oximetry 91 L 96 Oxygen Delivery Method Room Air Room Air 02/13/23 14:27 02/13/23 14:28 02/13/23 16:00 Temperature 98.7 F Pulse Rate 56 49 L 40 L Respiratory Rate 14 Blood Pressure 100/62 97/52 L 100/59 L Pulse Oximetry 99 Oxygen Delivery Method Room Air 02/13/23 18:00 Temperature 97.2 F Pulse Rate 54 Respiratory Rate 16 Blood Pressure 93/52 L Pulse Oximetry 97 Oxygen Delivery Method Room Air BMI result Body Mass Index 20.9 <Amarjit Al MD - Last Filed: 02/13/23 18:32> GEN: Well developed, no acute distress, alert, oriented HEENT: Normocephalic, atraumatic, normal external ears, nose appears normal, no oropharyngeal edema or exudates Eyes: Normal to appearance Neck: Supple, no lymphadenopathy Respiratory: Talks in complete sentences, no respiratory distress, clear to auscultation bilaterally Cardiovascular: Regular rate and rhythm, no murmurs rubs or gallops Abdomen: Soft, nontender, nondistended, no guarding, no rebound right inguinal mass, tender Back: No CVA tenderness Extremities: No clubbing cyanosis or edema Neurologic: No focal neurologic deficits, cranial nerves 2-12 intact, strength is 5/5 bilaterally, gait normal Skin: Left leg cellulitis proximally 5 cm in diameter, erythematous, warm to palpation and tenderness. No discrete mass or abscess. <Amarjit Al MD - Last Filed: 02/13/23 18:32> Course Course Course Narrative: RME; 32 yold male presents to the ED for right leg small warm red rash and right lower abdomen rash near pubic area. right leg shows cellulitis ( no leg s welling/calf pain/calf erythema). patient was sleepy and had pinpoint pupils on exam. patient admitted to taking 1 bag fentanyl. Charged nurse informed and patient brought to the ED for observation of vital signs and 02 saturation. Initial of leg shows cellutlis. not able to exam pubic area. <KARIN Perdue - Last Filed: 02/26/23 12:54> Reevaluation(s) Reevaluation #1: I have ordered antibiotics for cellulitis. Additionally ultrasound throughout inguinal lymphadenopathy, other mass or hernia <Amarjit Al MD - Last Filed: 02/13/23 18:32> Reevaluation #2: all results are in. Will refer to general surgery for lymphadenopathy and possible biopys <Amarjit Al MD - Last Filed: 02/13/23 18:32> Time: 18:30 <Amarjit Al MD - Last Filed: 02/13/23 18:32> Medications Administered Discontinued Medications Generic Name Dose Route Start Last Admin Trade Name Freq PRN Reason Stop Dose Admin Albuterol Sulfate 2 puff 02/13/23 18:28 02/13/23 18:40 Albuterol Sulfate 90 Mcg 8 Gm Inhaler INHALE 02/13/23 18:29 2 puff ONCE ONE Administration Doxycycline Monohydrate 100 mg 02/13/23 13:26 02/13/23 13:38 Doxycycline Monohydrate 100 Mg Capsule PO 02/13/23 13:27 100 mg ONCE ONE Administration Sodium Chloride 1,000 mls @ 999 mls/hr 02/13/23 13:45 02/13/23 14:49 Ns IV 02/13/23 14:45 Infused .Q1H1M GERA Infusion <KARIN Perdue - Last Filed: 02/26/23 12:54> Medications Administered Discontinued Medications Generic Name Dose Route Start Last Admin Trade Name Freq PRN Reason Stop Dose Admin Albuterol Sulfate 2 puff 02/13/23 18:28 02/13/23 18:40 Albuterol Sulfate 90 Mcg 8 Gm Inhaler INHALE 02/13/23 18:29 2 puff ONCE ONE Administration Doxycycline Monohydrate 100 mg 02/13/23 13:26 02/13/23 13:38 Doxycycline Monohydrate 100 Mg Capsule PO 02/13/23 13:27 100 mg ONCE ONE Administration Sodium Chloride 1,000 mls @ 999 mls/hr 02/13/23 13:45 02/13/23 14:49 Ns IV 02/13/23 14:45 Infused .Q1H1M GERA Infusion <Amarjit Al MD - Last Filed: 02/13/23 18:32> Medical Decision Making Medical Decision Making MDM Narrative: 32-year-old male presents 2 issues. Patient appears to have cellulitis left leg. He was given antibiotics for this. Other possible diagnosis could include its rash, vented knees, port wine stain. Patient also has a right inguinal mass. This is possibly hernia, a lymph node, mass <Amarjit Al MD - Last Filed: 02/13/23 18:32> Differential Diagnosis Differential Diagnoses: The differential diagnosis associated with the presentation includes (Cellulitis, rash, port wine stain, and the hernia, mass, lymph node) <Amarjit Al MD - Last Filed: 02/13/23 18:32> lymphadenopathy, cellulitis <Amarjit Al MD - Last Filed: 02/13/23 18:32> Lab Data Result Diagrams: 02/13/23 13:58 02/13/23 13:58 <KARIN Perdue - Last Filed: 02/26/23 12:54> Labs: Lab Results 02/13/23 02/13/23 02/13/23 Range/Units 13:58 13:58 13:58 WBC 10.4 (4.8-10.8) X10*3/uL RBC 4.81 (4.60-5.80) X10*6/uL Hgb 13.7 L (14.0-18.0) g/dl Hct 42.1 (42.0-52.0) % MCV 87.5 (80.0-98.0) fL MCH 28.5 (27.0-33.0) pg MCHC 32.5 (31.0-36.0) g/dl RDW 12.8 (11.0-16.0) % Plt Count 248 (160-400) X10*3/uL MPV 9.8 (9.4-12.4) fL Immature Gran % (Auto) 0.3 (0.0-0.4) % Neut % (Auto) 69.0 (45-73) % Lymph % (Auto) 18.6 L (20-40) % [place] % (Auto) 6.0 (2-11) % Eos % (Auto) 5.6 H (0-4) % Baso % (Auto) 0.5 (0-2) % Lymph # (Auto) 1.9 (1.2-4.9) X10*3/uL [place] # (Auto) 0.6 (0.1-1.2) X10*3/uL Eos # (Auto) 0.6 H (0.0-0.4) X10*3/uL Baso # (Auto) 0.1 (0.0-0.2) X10*3/uL Abs Immat Gran (auto) 0.03 (0.00-0.03) X10*3/uL Absolute Neuts (auto) 7.2 (2.0-8.3) x10*3/uL Absolute Nucleated RBC 0.000 (0.0-0.012) X10*3/uL Nucleated RBC % (auto) 0.0 (0.0-0.2) /100WBC Sodium 142 (135-145) mmol/L Potassium 4.6 (3.3-5.1) mmol/L Chloride 106 (96-108) mmol/L Carbon Dioxide 28 (22-29) mmol/L Anion Gap 13 (12-20) BUN 13 (9-16) mg/dL Creatinine 0.81 (0.5-1.4) mg/dL Estim Creat Clear Calc 125.9 Estimated GFR > 60 Random Glucose 93 (60-115) mg/dL Calcium 9.1 D (8.4-10.2) mg/dL Total Bilirubin 0.3 (0.0-1.0) mg/dL AST 17 (5-37) U/L ALT 16 (0-40) U/L Alkaline Phosphatase 59 (39-117) U/L Troponin I High Sens < 3.5 (<3.5-35.0) ng/L Total Protein 7.3 (6.5-8.0) g/dL Albumin 4.3 (3.5-5.0) g/dL Urine Color Urine Appearance Urine pH (5.0-9.0) Ur Specific [place] (1.005-1.025) Urine Protein (Neg-Trace) mg/dL Urine Glucose (UA) (Negative) mg/dL Urine Ketones (Negative) mg/dL Urine Blood (Negative) Urine Nitrite (Negative) Ur Leukocyte Esterase (Negative) COVID-19 ([place]STACIO) (Negative) COVID-19 Clin Com 02/13/23 02/13/23 Range/Units 13:58 13:58 WBC (4.8-10.8) X10*3/uL RBC (4.60-5.80) X10*6/uL Hgb (14.0-18.0) g/dl Hct (42.0-52.0) % MCV (80.0-98.0) fL MCH (27.0-33.0) pg MCHC (31.0-36.0) g/dl RDW (11.0-16.0) % Plt Count (160-400) X10*3/uL MPV (9.4-12.4) fL Immature Gran % (Auto) (0.0-0.4) % Neut % (Auto) (45-73) % Lymph % (Auto) (20-40) % [place] % (Auto) (2-11) % Eos % (Auto) (0-4) % Baso % (Auto) (0-2) % Lymph # (Auto) (1.2-4.9) X10*3/uL [place] # (Auto) (0.1-1.2) X10*3/uL Eos # (Auto) (0.0-0.4) X10*3/uL Baso # (Auto) (0.0-0.2) X10*3/uL Abs Immat Gran (auto) (0.00-0.03) X10*3/uL Absolute Neuts (auto) (2.0-8.3) x10*3/uL Absolute Nucleated RBC (0.0-0.012) X10*3/uL Nucleated RBC % (auto) (0.0-0.2) /100WBC Sodium (135-145) mmol/L Potassium (3.3-5.1) mmol/L Chloride (96-108) mmol/L Carbon Dioxide (22-29) mmol/L Anion Gap (12-20) BUN (9-16) mg/dL Creatinine (0.5-1.4) mg/dL Estim Creat Clear Calc Estimated GFR Random Glucose (60-115) mg/dL Calcium (8.4-10.2) mg/dL Total Bilirubin (0.0-1.0) mg/dL AST (5-37) U/L ALT (0-40) U/L Alkaline Phosphatase (39-117) U/L Troponin I High Sens (<3.5-35.0) ng/L Total Protein (6.5-8.0) g/dL Albumin (3.5-5.0) g/dL Urine Color Yellow Urine Appearance Clear Urine pH 5.5 (5.0-9.0) Ur Specific [place] 1.020 (1.005-1.025) Urine Protein Negative (Neg-Trace) mg/dL Urine Glucose (UA) Negative (Negative) mg/dL Urine Ketones Negative (Negative) mg/dL Urine Blood Negative (Negative) Urine Nitrite Negative (Negative) Ur Leukocyte Esterase Negative (Negative) COVID-19 ([place]STACIO) Negative (Negative) COVID-19 Clin Com See Note <KARIN Perdue - Last Filed: 02/26/23 12:54> Lab Results 02/13/23 02/13/23 02/13/23 Range/Units 13:58 13:58 13:58 WBC 10.4 (4.8-10.8) X10*3/uL RBC 4.81 (4.60-5.80) X10*6/uL Hgb 13.7 L (14.0-18.0) g/dl Hct 42.1 (42.0-52.0) % MCV 87.5 (80.0-98.0) fL MCH 28.5 (27.0-33.0) pg MCHC 32.5 (31.0-36.0) g/dl RDW 12.8 (11.0-16.0) % Plt Count 248 (160-400) X10*3/uL MPV 9.8 (9.4-12.4) fL Immature Gran % (Auto) 0.3 (0.0-0.4) % Neut % (Auto) 69.0 (45-73) % Lymph % (Auto) 18.6 L (20-40) % [place] % (Auto) 6.0 (2-11) % Eos % (Auto) 5.6 H (0-4) % Baso % (Auto) 0.5 (0-2) % Lymph # (Auto) 1.9 (1.2-4.9) X10*3/uL [place] # (Auto) 0.6 (0.1-1.2) X10*3/uL Eos # (Auto) 0.6 H (0.0-0.4) X10*3/uL Baso # (Auto) 0.1 (0.0-0.2) X10*3/uL Abs Immat Gran (auto) 0.03 (0.00-0.03) X10*3/uL Absolute Neuts (auto) 7.2 (2.0-8.3) x10*3/uL Absolute Nucleated RBC 0.000 (0.0-0.012) X10*3/uL Nucleated RBC % (auto) 0.0 (0.0-0.2) /100WBC Sodium 142 (135-145) mmol/L Potassium 4.6 (3.3-5.1) mmol/L Chloride 106 (96-108) mmol/L Carbon Dioxide 28 (22-29) mmol/L Anion Gap 13 (12-20) BUN 13 (9-16) mg/dL Creatinine 0.81 (0.5-1.4) mg/dL Estim Creat Clear Calc 125.9 Estimated GFR > 60 Random Glucose 93 (60-115) mg/dL Calcium 9.1 D (8.4-10.2) mg/dL Total Bilirubin 0.3 (0.0-1.0) mg/dL AST 17 (5-37) U/L ALT 16 (0-40) U/L Alkaline Phosphatase 59 (39-117) U/L Troponin I High Sens < 3.5 (<3.5-35.0) ng/L Total Protein 7.3 (6.5-8.0) g/dL Albumin 4.3 (3.5-5.0) g/dL Urine Color Urine Appearance Urine pH (5.0-9.0) Ur Specific [place] (1.005-1.025) Urine Protein (Neg-Trace) mg/dL Urine Glucose (UA) (Negative) mg/dL Urine Ketones (Negative) mg/dL Urine Blood (Negative) Urine Nitrite (Negative) Ur Leukocyte Esterase (Negative) COVID-19 ([facility]STACIO) (Negative) COVID-19 Clin Com 02/13/23 02/13/23 Range/Units 13:58 13:58 WBC (4.8-10.8) X10*3/uL RBC (4.60-5.80) X10*6/uL Hgb (14.0-18.0) g/dl Hct (42.0-52.0) % MCV (80.0-98.0) fL MCH (27.0-33.0) pg MCHC (31.0-36.0) g/dl RDW (11.0-16.0) % Plt Count (160-400) X10*3/uL MPV (9.4-12.4) fL Immature Gran % (Auto) (0.0-0.4) % Neut % (Auto) (45-73) % Lymph % (Auto) (20-40) % [place] % (Auto) (2-11) % Eos % (Auto) (0-4) % Baso % (Auto) (0-2) % Lymph # (Auto) (1.2-4.9) X10*3/uL [place] # (Auto) (0.1-1.2) X10*3/uL Eos # (Auto) (0.0-0.4) X10*3/uL Baso # (Auto) (0.0-0.2) X10*3/uL Abs Immat Gran (auto) (0.00-0.03) X10*3/uL Absolute Neuts (auto) (2.0-8.3) x10*3/uL Absolute Nucleated RBC (0.0-0.012) X10*3/uL Nucleated RBC % (auto) (0.0-0.2) /100WBC Sodium (135-145) mmol/L Potassium (3.3-5.1) mmol/L Chloride (96-108) mmol/L Carbon Dioxide (22-29) mmol/L Anion Gap (12-20) BUN (9-16) mg/dL Creatinine (0.5-1.4) mg/dL Estim Creat Clear Calc Estimated GFR Random Glucose (60-115) mg/dL Calcium (8.4-10.2) mg/dL Total Bilirubin (0.0-1.0) mg/dL AST (5-37) U/L ALT (0-40) U/L Alkaline Phosphatase (39-117) U/L Troponin I High Sens (<3.5-35.0) ng/L Total Protein (6.5-8.0) g/dL Albumin (3.5-5.0) g/dL Urine Color Yellow Urine Appearance Clear Urine pH 5.5 (5.0-9.0) Ur Specific [place] 1.020 (1.005-1.025) Urine Protein Negative (Neg-Trace) mg/dL Urine Glucose (UA) Negative (Negative) mg/dL Urine Ketones Negative (Negative) mg/dL Urine Blood Negative (Negative) Urine Nitrite Negative (Negative) Ur Leukocyte Esterase Negative (Negative) COVID-19 ([place]) Negative (Negative) COVID-19 Clin Com See Note <Amarjit Al MD - Last Filed: 02/13/23 18:32> Independent Interpretation I performed an independent interpretation of an: EKG (Sinus bradycardia heart rate 42, early repolarization, no acute ST elevations depressions,) and Ultrasound (NO DVT) <Amarjit Al MD - Last Filed: 02/13/23 18:32> Radiology Impression Discussion of test interpretation with radiology: I have reviewed the radiologist's reading. (Cellulitis, rash, port wine stain, and the hernia, mass, lymph node) <Amarjit Al MD - Last Filed: 02/13/23 18:32> External Record Review External record reviewed: Office record <Amarjit Al MD - Last Filed: 02/13/23 18:32> Prescription Management I considered prescription management with: Pain Medication and Antibiotic <Amarjit Al MD - Last Filed: 02/13/23 18:32> Chronic Conditions Patient?s care impacted by: Other (Substance abuse) <Amarjit Al MD - Last Filed: 02/13/23 18:32> Discharge Plan Discharge Clinical Impression: Cellulitis, Inguinal mass <KARIN Perdue - Last Filed: 02/26/23 12:54> Patient Disposition: Home, Self-Care <KARIN Perdue - Last Filed: 02/26/23 12:54> Instructions: Cellulitis (ED), Lymphadenopathy (ED) <KARIN Perdue - Last Filed: 02/26/23 12:54> Prescriptions: No Action clonidine HCl 0.1 mg tablet 0.1 mg PO BID PRN (Reason: anxiety) 30 Days Qty: 60 0RF Protocol: Hold for SBP< HOLD for SBP < : 90 hydroxyzine HCl 50 mg tablet 50 mg PO BID PRN (Reason: Anxiety) 30 Days Qty: 60 0RF multivitamin Tablet 1 tab PO DAILY doxycycline monohydrate 100 mg Capsule 100 mg PO BID 6 Days Qty: 12 0RF nicotine (polacrilex) 2 mg Gum 4 mg buccal Q2H PRN (Reason: Nicotine Cravings) 30 Days Qty: 100 0RF quetiapine 200 mg tablet 200 mg PO BEDTIME 30 Days Qty: 30 0RF fluoxetine 10 mg capsule 10 mg PO DAILY 30 Days Qty: 30 0RF albuterol sulfate 90 mcg/actuation HFA aerosol inhaler 2 puff inhalation Q6H PRN (Reason: shortness of breath or wheezing) 30 Days Qty: 8 2RF <KARIN Perdue - Last Filed: 02/26/23 12:54> Referrals: Yung Olivarez MD [Physician] - (inguinal lymphadenopathy - possible biopsy) Alana Sena MD [Primary Care Provider] - 3 days <KARIN Perdue - Last Filed: 02/26/23 12:54> Interventions: [place]-Suicide Risk Severity Scale Last Done: 02/13/23 14:03 ED Discharge Assessment Last Done: 02/13/23 18:43 <KARIN Perdue - Last Filed: 02/26/23 12:54> Discharge Date/Time: 02/13/23 18:44 <KARIN Perdue - Last Filed: 02/26/23 12:54>
--- OUTSIDE RECORDS SUMMARY | 2023-02-13 12:36 | XMS_ITS | Continuity of Care Document ---
Author Name Unknown Organization [facility] ter Address [address] [place] [id number]- Care Team Providers Care Clinical Programmer Name Role Phone Fermin Ortega MD, Alana Bowling Primary Care Phys[id number] Date(s): 01/28/22 - 01/28/[address] [address]- Encounter Diagnosis Cellulitis(Final) - 01/28/22 Discharge Disposition: A-D/C Home Attending Physician: Edie Lopez MD Admitting Physician: Edie Lopez MD Referring Physician: Not on Staff, Referring MD Allergies, Adverse Reactions, Alerts No Known Allergies Medications Acetaminophen Tablet 975 mg, Tablet, By Mouth, Once, STAT, 01/28/22 10:20:00 EST, Stop date 01/28/22 10:20:00 EST Start Date: 01/28/22 Stop Date: 01/28/22 Status: Completed cephalexin monohydrate 500 mg oral tablet 1 tablet = 500 mg, By Mouth, 4 times a day, for 7 days, # 28 tablet, 0 Refills, Acute 02/04/22 13:18:00 EDT, 01/28/22 13:18:00 EST, Tablet, [facility]/pharmacy #[id number], Partial fill upon patient request if the prescription is for a schedule II opioid drug., 18... 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 HISTORY OF PRESENT ILLNESS: Patient reports right leg swelling, redness, and tenderness that started yesterday. Denies any trauma to leg. REASON: Infection. CLINICAL QUESTION(S): Osteomyelitis. COMPARISON: None. FINDINGS: No acute fractures or bone lesions. Small corticated bone fragment at the tip of the distal fibula,likely sequela of remote injury. No arthritic changes. There is soft tissue swelling of the calf, ankle, and foot. IMPRESSION: Soft tissue swelling. No evidence of acute osseous abnormality. I have personally reviewed the images and I agree with this report. WSN: [id number] Ordering Physician: Edie Lopez Dictated By: Harry Ibanez MD Dictated Date/Time: 01/28/22 11:08 a Reviewed By: Billy Negron MD Signed By: Billy Negron MD Signed Date/Time: 01/28/22 11:13 am Transcribed By: DENG Transcribed Date/Time: 01/28/22 11:04 am * Exam Date Time Procedure Performing Provider Status 01/28/22 10:53 AM Foot Min 3 Views Right Ekenbarger , K risty L; Auth (Verified) Notes: (Foot Min 3 Views Right) Reason For Exam: Infection RESULT: Foot Min 3 Views Right Foot 3 Views Right, Tibia/Fibula 2 Views Right. HISTORY OF PRESENT ILLNESS: Patient reports right leg swelling, redness, and tenderness that started yesterday. Denies any trauma to leg. REASON: Infection. CLINICAL QUESTION(S): Osteomyelitis. COMPARISON: None. FINDINGS: No acute fractures or bone lesions. Small corticated bone fragment at the tip of the distal fibula,likely sequela of remote injury. No arthritic changes. There is soft tissue swelling of the calf, ankle, and foot. IMPRESSION: Soft tissue swelling. No evidence of acute osseous abnormality. I have personally reviewed the images and I agree with this report. WSN: [id number] Ordering Physician: Edie Loepz Dictated By: Harry Ibanez MD Dictated Date/Time: 01/28/22 11:08 a Reviewed By: Billy Negron MD Signed By: Billy Negron MD Signed Date/Time: 01/28/22 11:13 am Transcribed By: DENG Transcribed Date/Time: 01/28/22 11:04 am Vital Signs Most recent to oldest [Reference Range]: 1 2 3 Oxygen Saturation [94-100 %] 98 % (01/28/22 1:42 PM) 98 % (01/28/22 11:58 AM) 98 % (01/28/22 9:30 AM) Pulse Rate [55-90 bpm] 82 bpm (01/28/22 1:42 PM) 84 bpm (01/28/22 11:58 AM) 81 bpm (01/28/22 9:30 AM) Blood Pressure [90-138/55-84 mm Hg] 127/72mm Hg (01/28/22 1:42 PM) 124/69mm Hg (01/28/22 11:58 AM) 121/65mm Hg (01/28/22 9:30 AM) Respiratory Rate [16-30 br/min] 18 br/min (01/28/22 1:42 PM) 18 br/min (01/28/22 12:05 PM) 18 br/min (01/28/22 11:58 AM) Temperature [96.8-100.4 DegF] 98.6 DegF (01/28/22 1:42 PM) 98.6 DegF (01/28/22 11:58 AM) 98.8 DegF (01/28/22 9:30 AM) Mode of Delivery (Oxygen) Room air (01/28/22 1:42 PM) Room air (01/28/22 11:58 AM) Room air (01/28/22 9:30 AM) Blood pressure sites Arm, left (01/28/22 1:42 PM) Arm, left (01/28/22 11:58 AM) Arm, left (01/28/22 9:30 AM) Temperature Route Oral (01/28/22 1:42 PM) Oral (01/28/22 11:58 AM) Oral (01/28/22 9:30 AM)
--- OUTSIDE RECORDS SUMMARY | 2023-02-13 12:36 | XMS_ITS | Continuity of Care Document ---
Author Name Unknown Organization [facility] ter Address [address] [place] [id number] Care Team Providers Care Card Placer Name Role Phone Fermin Ortega MD, Alana Bowling Primary Care Physician Encounter [facility] N[facility] [id number] Date(s): 01/20/22 - 01/20/[address] [address]- Encounter Diagnosis Inguinal lymphadenitis(Final) - 01/20/22 Discharge Disposition: A-D/C Home Attending Physician: Fermín Ortega MD Admitting Physician: Fermín Ortega MD Referring Physician: Not on Staff, Referring MD Allergies, Adverse Reactions, Alerts No Known Allergies Medications ibuprofen 800 mg oral tablet 800 mg, 1, tablet, By Mouth, Every 6 hours, # 30 tablet, Refills 0, Tot. Refills 0, Acute 01/28/22 15:15:00 EST, 01/20/22 15:15:00 EST, Print Requisition, Partial fill upon patient request if the prescription is for a schedule II opioid drug. 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 Simple laceration of chin(Confirmed) 07/25/11 Active Vital Signs Most recent to oldest [Reference Range]: 1 2 3 Height 180 cm (01/20/22 3:39 PM) 180 cm (01/20/22 10:25 AM) Weight 85.9 kg (01/20/22 3:39 PM) 85.9 kg (01/20/22 10:25 AM) Oxygen Saturation [94-100 %] 96 % (01/20/22 10:25 AM) 97 % (01/20/22 10:19 AM) Pulse Rate [55-90 bpm] 79 bpm (01/20/22 10:25 AM) 88 bpm (01/20/22 10:19 AM) Body Mass Index [18.5-24.99] 26.51 *H* (01/20/22 10:25 AM) Blood Pressure [90-138/55-84 mm Hg] 112/48mm Hg (01/20/22 12:25 PM) 114/61mm Hg (01/20/22 10:25 AM) Respiratory Rate [16-30 br/min] 20 br/min (01/20/22 1:36 PM) 16 br/min (01/20/22 12:36 PM) 16 br/min (01/20/22 10:25 AM) Temperature [96.8-100.4 DegF] 98.2 DegF (01/20/22 12:25 PM) 97.9 DegF (01/20/22 10:25 AM) Mode of Delivery (Oxygen) Room air (01/20/22 12:25 PM) Room air (01/20/22 10:25 AM) Room air (01/20/22 10:19 AM) Blood pressure sites Arm, right (01/20/22 12:25 PM) Arm, right (01/20/22 10:25 AM) Temperature Route Oral (01/20/22 12:25 PM) Oral (01/20/22 10:25 AM) Dry Weight 85.9 kg (01/20/22 3:39 PM) 85.9 kg (01/20/22 10:25 AM) Weight Obtained Via Standing scale (01/20/22 10:25 AM) Dry Weight Obtained Via Standing scale (01/20/22 10:25 AM)
[2023-02-13] MEDS: Doxycycline Monohydrate 100 MG CAPSULE PO (13:38)
--- NOTE | 2023-02-13 13:43 | ECG_ITS ---
Test Reason : CP Blood Pressure : / mmHG Vent. Rate : 042 BPM Atrial Rate : 042 BPM P-R Int : 130 ms QRS Dur : 090 ms QT Int : 454 ms P-R-T Axes : 027 074 051 degrees QTc Int : 379 ms Marked sinus bradycardia Abnormal ECG When compared with ECG of 20-OCT-2022 08:00, Vent. rate has decreased BY 24 BPM Referred By: Amarjit Al Electronically Signed By:JACLYN FLOR
[2023-02-13] MEDS: 0.9 % Sodium Chloride 1,000 ML 999 ML IV (14:02)
[2023-02-13 14:10] LABS: MANUAL DIFF FLAG NO
[2023-02-13 14:14] LABS: Basophils Absolute Auto 0.1 X10*3/uL (0.0-0.2); Basophils Percent Auto 0.5 % (0-2); Eosinophils Absolute Auto 0.6 X10*3/uL (0.0-0.4); Eosinophils Percent Auto 5.6 % (0-4); Hematocrit 42.1 % (42.0-52.0); Hemoglobin 13.7 g/dl (14.0-18.0); Imm Gran Abs Auto 0.03 X10*3/uL (0.00-0.03); Imm Gran Pct Auto 0.3 % (0.0-0.4); Lymphocytes Absolute Auto 1.9 X10*3/uL (1.2-4.9); Lymphocytes Percent Auto 18.6 % (20-40); Mean Corpuscular HGB Conc 32.5 g/dl (31.0-36.0); Mean Corpuscular Hemoglobin 28.5 pg (27.0-33.0); Mean Corpuscular Volume 87.5 fL (80.0-98.0); Mean Platelet Volume 9.8 fL (9.4-12.4); Monocytes Absolute Auto 0.6 X10*3/uL (0.1-1.2); Neutrophils Absolute Auto 7.2 x10*3/uL (2.0-8.3); Platelet Count 248 X10*3/uL (160-400); Red Blood Count 4.81 X10*6/uL (4.60-5.80); Red Cell Distribution Width 12.8 % (11.0-16.0); White Blood Count 10.4 X10*3/uL (4.8-10.8)
[2023-02-13 14:15] LABS: Appearance Urine Clear; Color Urine Yellow; Glucose Urine UA Negative (Negative); Leukocyte Esterase Urine Negative (Negative); Nitrite Urine Negative (Negative); PH 5.5 (5.0-9.0); Urine Blood Negative (Negative); Urine Ketones Negative (Negative); Urine Protein Negative (Neg-Trace)
[2023-02-13 14:25] LABS: IDNOW Serial# BCCEAD1C
[2023-02-13 14:26] LABS: COVID-19 Test Negative (Negative)
[2023-02-13 14:27] VITALS: BP 100/62; BP 95/49; PULSE 42; PULSE 56
[2023-02-13 14:28] VITALS: BP 97/52; PULSE 49
[2023-02-13 14:29] VITALS: BP 100/62; PULSE 56; RESP 12; O2SAT 96
[2023-02-13 14:33] LABS: Alanine Aminotransferase 16 U/L (0-40); Albumin Level 4.3 g/dL (3.5-5.0); Alkaline Phosphatase 59 U/L (39-117); Anion Gap 13 (12-20); Aspartate Amino Transferase 17 U/L (5-37); Bilirubin Total 0.3 mg/dL (0.0-1.0); Blood Urea Nitrogen 13 mg/dL (9-16); Calcium 9.1 mg/dL (8.4-10.2); Carbon Dioxide 28 mmol/L (22-29); Chloride 106 mmol/L (96-108); Creatinine Clr Calc Pharmacy 125.9; Estimated Glomerular Filt Rate > 60; Glucose Random 93 mg/dL (60-115); Potassium 4.6 mmol/L (3.3-5.1); Sodium 142 mmol/L (135-145); Total Protein 7.3 g/dL (6.5-8.0)
[2023-02-13 14:40] LABS: Troponin-I High Sensitivity < 3.5 ng/L (<3.5-35.0)
--- NOTE | 2023-02-13 15:41 | PC.NURSE ---
patient restless, verbally redirectable. calm and cooperative with staff. will CTM
[2023-02-13 16:00] VITALS: BP 100/59; PULSE 40; RESP 14; TEMP 37.1; O2SAT 99
[2023-02-13 18:00] VITALS: BP 93/52; PULSE 54; RESP 16; TEMP 36.2; O2SAT 97
[2023-02-13] MEDS: Albuterol Sulfate 90 MCG 8 GM INHALER 2 PUFF INHALE (18:40)
== END 2023-02-13 18:44 | disposition home or self-care (01) ==
PROVIDERS: Emergency Provider Emergency Medicine; PCP Internal Medicine
DX: R60.0 Localized edema (principal); L03.115 Cellulitis of right lower limb; M79.605 Pain in left leg; F17.210 Nicotine dependence, cigarettes, uncomplicated; Z71.6 Tobacco abuse counseling; Z20.822 Contact with and (suspected) exposure to COVID-19; Z20.828 Contact with and (suspected) exposure to other viral communicable diseases; Z79.899 Other long term (current) drug therapy
CPT/HCPCS: 76857; 80053; 81003; 84484; 85025; 87635; 93005; 93971; 96360; 99284; 99285

== ENCOUNTER 2023-02-14 15:37 | Inpatient (IN) | payer OTHER, SELFPAY ==
--- NOTE | ~2023-02-14 | US_ITS ---
EXAMINATION: US SCROTUM CLINICAL INFORMATION: Testicular pain. COMPARISON: None available. TECHNIQUE: A sonogram of the scrotum was performed assessing donovan-scale appearance and color Doppler flow. Spectral Doppler analysis of the arterial and venous flow were performed in the testes bilaterally. FINDINGS: RIGHT: Right testicle measures 4.7 x 1.7 x 3.1 cm, volume 13 mL. No focal testicular parenchymal lesions are visualized. Spectral Doppler analysis of the arterial and venous flow is normal in the right testis. Right epididymal head is normal in size.There is a 0.9 cm cyst in the head of the right epididymis. No right hydrocele or varicocele is seen. Right epididymal Doppler flow is normal. LEFT: Left testicle measures 3.6 x 2 x 2.5 cm, volume 9.6 mL. No focal testicular parenchymal lesions are visualized. Spectral Doppler analysis of the arterial and venous flow is normal in the left testis. Left epididymal head is normal in size. Normal variant of a small appendix involving the left epididymis. No left hydrocele or varicocele is seen. Left epididymal Doppler flow is normal. US/US scrotum IMPRESSION: Normal ultrasound of the right and left testicle. No acute abnormality.
--- NOTE | ~2023-02-14 | US_ITS ---
EXAMINATION: US SCROTUM CLINICAL INFORMATION: Testicular pain. COMPARISON: None available. TECHNIQUE: A sonogram of the scrotum was performed assessing donovan-scale appearance and color Doppler flow. Spectral Doppler analysis of the arterial and venous flow were performed in the testes bilaterally. FINDINGS: RIGHT: Right testicle measures 4.7 x 1.7 x 3.1 cm, volume 13 mL. No focal testicular parenchymal lesions are visualized. Spectral Doppler analysis of the arterial and venous flow is normal in the right testis. Right epididymal head is normal in size.There is a 0.9 cm cyst in the head of the right epididymis. No right hydrocele or varicocele is seen. Right epididymal Doppler flow is normal. LEFT: Left testicle measures 3.6 x 2 x 2.5 cm, volume 9.6 mL. No focal testicular parenchymal lesions are visualized. Spectral Doppler analysis of the arterial and venous flow is normal in the left testis. Left epididymal head is normal in size. Normal variant of a small appendix involving the left epididymis. No left hydrocele or varicocele is seen. Left epididymal Doppler flow is normal. US/US scrotum doppler IMPRESSION: Normal ultrasound of the right and left testicle. No acute abnormality.
[2023-02-14 15:55] VITALS: BP 110/42; PULSE 65; RESP 18; TEMP 36.9; O2SAT 96; BMI 22.3
--- NOTE | 2023-02-14 15:55 | ED.PSYCH ---
HPI - Psych General Chief Complaint: Psychiatric Symptoms <KARIN Benito - Last Filed: 02/14/23 15:59> Stated Complaint: crisis <KARIN Benito - Last Filed: 02/14/23 15:59> Time Seen by Provider: 02/14/23 16:23 <KARIN Benito - Last Filed: 02/14/23 15:59> Source: patient <KARIN Ivy - Last Filed: 02/14/23 20:18> Mode of arrival: ambulatory <KARIN Ivy - Last Filed: 02/14/23 20:18> Limitations: no limitations <KARIN Ivy - Last Filed: 02/14/23 20:18> History of Present Illness HPI Narrative: This is a 32-year-old male history of PTSD, ADHD, cocaine use disorder, opiate use disorder, insomnia presenting to the emergency for evaluation of suicidal ideation with plan to overdose, patient reports increasing life stressors that are contributing to him feeling so I. Has been feeling this way for a while now. Patient is still currently using opiates, last use prior to arrival, however, he is seeking detox. Patient reports that he is hearing voices, and visualizing dark shadows. Patient denies drugs, alcohol and tobacco. Denies homicidal ideation. Denies medical complaints. <KARIN Ivy - Last Filed: 02/14/23 20:18> Related Data Home Medications: Home Medications Medication Instructions Recorded Confirmed multivitamin 1 tab PO DAILY 02/14/23 02/14/23 Previous Rx's Medication Instructions Recorded nicotine (polacrilex) 2 mg gum 4 mg buccal Q2H PRN Nicotine 10/24/22 Cravings 30 days #100 ea fluoxetine 10 mg capsule 10 mg PO DAILY 30 days #30 caps 12/17/22 Ventolin HFA 90 mcg/actuation 2 puff inhalation Q6H PRN 01/27/23 aerosol inhaler (albuterol sulfate) shortness of breath or wheezing 30 days #8 grams clonidine HCl 0.1 mg tablet 0.1 mg PO BID PRN anxiety 30 days 01/27/23 #60 tabs hydroxyzine HCl 50 mg tablet 50 mg PO BID PRN Anxiety 30 days 01/27/23 #60 tabs quetiapine 200 mg tablet 200 mg PO BEDTIME 30 days #30 tabs 01/27/23 <KARIN Benito - Last Filed: 02/14/23 15:59> Allergies/Adverse Reactions: Allergies Allergy/AdvReac Type Severity Reaction Status Date / Time No Known Allergies Allergy Verified 02/09/22 08:45 <KARIN Benito - Last Filed: 02/14/23 15:59> Review of Systems Review of Systems: Constitutional : No Weight loss, No Fever, No Chills, No Fatigue, No Malaise ENT/Mouth : No sore throat, No Rhinorrhea Eyes: No Eye Pain, No Swelling, No Redness Cardiovascular : No Chest Pain, No SOB, No Dyspnea on Exertion, No Orthopnea, No Edema, No Palpitations Respiratory : No Cough, No Sputum, No Wheezing Gastrointestinal : No Nausea, No Vomiting, No Diarrhea, No Constipation, No abdominal Pain, No Hematochezia, No Melena Genitourinary : No Dysuria, No Urinary Frequency, No Hematuria, Musculoskeletal : No joint pain, No Myalgias, No Joint Swelling Skin : No Skin Lesions, No rash Neuro : No Weakness, No Numbness, No Dizziness, No Headache Psych : + Anxiety/Panic, + Depression, +SI, No HI All other systems reviewed and are negative <KARIN Ivy - Last Filed: 02/14/23 20:18> Yes all other systems are reviewed and are negative <KARIN Ivy - Last Filed: 02/14/23 20:18> PMFSH Past Medical History Attestation statement: The following information was validated with the patient. <KARIN Ivy - Last Filed: 02/14/23 20:18> Source: old records reviewed and nursing notes reviewed <KARIN Ivy - Last Filed: 02/14/23 20:18> Medical History: Medical History ADHD (attention deficit hyperactivity disorder) Patient denies medical problems Post traumatic stress disorder (PTSD) Substance abuse <KARIN Benito - Last Filed: 02/14/23 15:59> Surgical History: Surgical History No pertinent past surgical history <KARIN Benito - Last Filed: 02/14/23 15:59> Family History Family History: Family History Mother No problems noted. Father No problems noted. <KARIN Benito - Last Filed: 02/14/23 15:59> Social History Social History: Social History Household Members Other:: Mother Housing: Apartment Do you presently have visiting nurse or other home services: No Alcohol intake: unknown Patient Tobacco Use Status: Current everyday Tobacco user Tobacco use type: Cigarette Cigarette Packs Per Day: 0.5 Cigarettes Per Day: 10.0 e-Cigarette/Vaping Use: Never Used Second Hand Smoke Exposure: No Substance Use Type: Crack/Cocaine, Heroin, Marijuana, Painkillers and Prescription Drugs Advance Directives: No Advance Directives Information Provided: No service: No Current occupational status: unemployed Sexual orientation: Don't Know Cognitive needs: No Hearing needs: No Vision needs: No <KARIN Benito - Last Filed: 02/14/23 15:59> Physical Exam Vital Signs: Vital Signs: Last Vital Signs Temp 98.4 F 02/14/23 15:55 Pulse 65 02/14/23 15:55 Resp 18 02/14/23 15:55 BP 110/42 L 02/14/23 15:55 Pulse Ox 96 02/14/23 15:55 O2 Del Method Room Air 02/14/23 15:55 BMI result Body Mass Index 22.3 <KARIN Benito - Last Filed: 02/14/23 15:59> Vital Signs: Last Vital Signs Temp 98.4 F 02/14/23 15:55 Pulse 65 02/14/23 15:55 Resp 18 02/14/23 15:55 BP 110/42 L 02/14/23 15:55 Pulse Ox 96 02/14/23 15:55 O2 Del Method Room Air 02/14/23 15:55 BMI result Body Mass Index 22.3 vss <KARIN Ivy - Last Filed: 02/14/23 20:18> Appearance: Alert.? Oriented X3.? No acute distress.? Head: Normocephalic, atraumatic, no step-offs or deformities Eyes: Pupils equal, round and reactive to light.? ENT: Pharynx normal.? Neck: Normal inspection.? Neck supple.? CVS: Normal heart rate and rhythm.? Pulses normal.? Respiratory: No respiratory distress.? Breath sounds normal.? Abdomen: Soft and nontender.? Skin: Skin warm and dry.? Normal skin color.? Normal skin turgor.?+ small area of erythema and warmth to R. inner calf. Extremities: No lower extremity edema.? No calf ttp. 5/5 strength to bilateral upper and lower extremities Neuro: Oriented X 3.? No motor deficit.? No sensory deficit. CN 2-12 intact <KARIN Ivy - Last Filed: 02/14/23 20:18> Course Course Course Narrative: RME-15:55PM - 32yoM with a PMHx of opioid use disorder, cocaine use disorder, and MDD recurrent with psychotic features who is presenting to the ER with increased anxiety/depression with SI thoughts no plan in place to Overdosing due to increased stressors. Reports he last used today [employer] he reports he sniffed some heroin and fentanyl. Interested in detox. Reports he is hearing voices and seeing shadows. Denies fevers, n/v/d, CP/SOB, abd pain or any other symptoms complaints or concerns at this time. Plan: Labs, UA, EKG ordered at this time. <KARIN Benito - Last Filed: 02/14/23 15:59> Reevaluation(s) Reevaluation #1: Patient now wants me to evaluate his right inguinal region he states that there is a bump has been fluctuating in size of the past few weeks. He reports it is sore and uncomfortable at times. He denies any inciting trauma. Has never had this evaluated. No concerns for STDs he tells me he is only sexually active with 1 sexual partner however he is not a posting tested does not feel as though he needs prophylactic treatment.. Has not been tested for anything in a while upon chart review. Patient did have a venous duplex done on right lower extremity yesterday for swelling no evidence of DVT, negative Juan on exam. I suspect right lower extremity has cellulitis will start him on doxycycline. Patient did have a pelvic ultrasound yesterday that showed adenopathy however patient does report slight discomfort to testicles will obtain testicular Doppler. No need to repeat venous duplex and I do not suspicion for DVT patient without risk factors. <KARIN Ivy - Last Filed: 02/14/23 20:18> Time: 16:42 <KARIN Ivy - Last Filed: 02/14/23 20:18> Reevaluation #2: CBC with no acute findings. Chemistry with no acute electrolyte abnormalities requiring intervention, CO2 is noted to be elevated however around his baseline. Patient's baseline around 31. No shortness of breath or chest pain. Coags unremarkable. Positive for opiates, fentanyl, cocaine, marijuana. Salicylates negative. Ethanol negative. Flu/COVID/RSV negative. His gonorrhea, hepatitis panel and HIV tests are pending. Syphilis also pending. Ultrasound with no signs of torsion. Lymph nodes noted in the pelvic ultrasound from yesterday. Patient aware will have him follow-up with PCP. <KARIN Ivy - Last Filed: 02/14/23 20:18> Time: 20:17 <KARIN Ivy - Last Filed: 02/14/23 20:18> Reevaluation #3: At this time patient will be placed into observation to allow more time to be evaluated by behavioral health team. At time observation was started patient common cooperative no acute distress will continue to monitor <KARIN Ivy - Last Filed: 02/14/23 20:18> Medications Administered Discontinued Medications Generic Name Dose Route Start Last Admin Trade Name Freq PRN Reason Stop Dose Admin Doxycycline Monohydrate 100 mg 02/14/23 16:49 02/14/23 17:05 Doxycycline Monohydrate 100 Mg Capsule PO 02/14/23 16:50 100 mg ONCE ONE Administration <KARIN Benito - Last Filed: 02/14/23 15:59> Medications Administered Discontinued Medications Generic Name Dose Route Start Last Admin Trade Name Freq PRN Reason Stop Dose Admin Doxycycline Monohydrate 100 mg 02/14/23 16:49 02/14/23 17:05 Doxycycline Monohydrate 100 Mg Capsule PO 02/14/23 16:50 100 mg ONCE ONE Administration <KARIN Ivy - Last Filed: 02/14/23 20:18> Medical Decision Making Medical Decision Making [facility] Narrative: 1629 32-year-old male presents with opiate use disorder, suicidal ideation and overdose seeking detox. Reports increasing life stressors. Physical examination mall area of erythema and warmth to R. inner calf. Large R. sided inguinal adenopathy Concerns for anxiety, depression with suicidal ideation. Unlikely metabolic disturbances. Plan medical clearance evaluation by behavioral health team <KARIN Ivy - Last Filed: 02/14/23 20:18> Differential Diagnosis Differential Diagnoses: The differential diagnosis associated with the presentation includes <KARIN Ivy - Last Filed: 02/14/23 20:18> Concerns for anxiety, depression with suicidal ideation. Unlikely metabolic disturbances. <KARIN Ivy - Last Filed: 02/14/23 20:18> Admission/Observation Consideration of admission/observation: Escalation of care including admission/observation considered <KARIN Ivy - Last Filed: 02/14/23 20:18> Lab Data [facility] Lab Attestation statement: I reviewed the patient's lab results. <KARIN Ivy - Last Filed: 02/14/23 20:18> Result Diagrams: 02/14/23 18:27 02/14/23 18:27 <KARIN Benito - Last Filed: 02/14/23 15:59> Labs: Lab Results 02/14/23 02/14/23 02/14/23 Range/Units 17:41 17:46 18:27 WBC 7.1 (4.8-10.8) X10*3/uL RBC 4.83 (4.60-5.80) X10*6/uL Hgb 13.8 L (14.0-18.0) g/dl Hct 42.3 (42.0-52.0) % MCV 87.6 (80.0-98.0) fL MCH 28.6 (27.0-33.0) pg MCHC 32.6 (31.0-36.0) g/dl RDW 12.8 (11.0-16.0) % Plt Count 282 (160-400) X10*3/uL MPV 9.7 (9.4-12.4) fL Immature Gran % (Auto) 0.3 (0.0-0.4) % Neut % (Auto) 45.6 (45-73) % Lymph % (Auto) 31.6 (20-40) % Stonewall % (Auto) 5.5 (2-11) % Eos % (Auto) 16.4 H (0-4) % Baso % (Auto) 0.6 (0-2) % Lymph # (Auto) 2.3 (1.2-4.9) X10*3/uL [place] # (Auto) 0.4 (0.1-1.2) X10*3/uL Eos # (Auto) 1.2 H (0.0-0.4) X10*3/uL Baso # (Auto) 0.0 (0.0-0.2) X10*3/uL Abs Immat Gran (auto) 0.02 (0.00-0.03) X10*3/uL Absolute Neuts (auto) 3.3 (2.0-8.3) x10*3/uL Absolute Nucleated RBC 0.000 (0.0-0.012) X10*3/uL Nucleated RBC % (auto) 0.0 (0.0-0.2) /100WBC PT (10.0-13.1) SEC INR (0.9-1.1) Sodium (135-145) mmol/L Potassium (3.3-5.1) mmol/L Chloride (96-108) mmol/L Carbon Dioxide (22-29) mmol/L Anion Gap (12-20) BUN (9-16) mg/dL Creatinine (0.5-1.4) mg/dL Estim Creat Clear Calc Estimated GFR Random Glucose (60-115) mg/dL Calcium (8.4-10.2) mg/dL Magnesium (1.6-2.6) mg/dL Total Bilirubin (0.0-1.0) mg/dL AST (5-37) U/L ALT (0-40) U/L Alkaline Phosphatase (39-117) U/L Total Protein (6.5-8.0) g/dL Albumin (3.5-5.0) g/dL Lipase (8-78) U/L Salicylates (15-30) mg/dL Urine Opiates Screen POSITIVE H (Not Detect) Urine Fentanyl Screen POSITIVE H (Not Detect) Ur Barbiturates Screen Not Detected (Not Detect) Ur Phencyclidine Scrn Not Detected (Not Detect) Ur Amphetamines Screen Not Detected (Not Detect) U Benzodiazepines Scrn Not Detected (Not Detect) Urine Cocaine Screen POSITIVE H (Not Detect) U Marijuana (THC) Screen POSITIVE H (Not Detect) Ethyl Alcohol mg/dL Influenza Type A (PCR) NEGATIVE (Negative) Influenza Type B (PCR) NEGATIVE (Negative) RSV RNA Qual (PCR) NEGATIVE (Negative) SARS-CoV-2 RNA (RT-PCR) NEGATIVE (Negative) 02/14/23 02/14/23 02/14/23 Range/Units 18:27 18:27 18:27 WBC (4.8-10.8) X10*3/uL RBC (4.60-5.80) X10*6/uL Hgb (14.0-18.0) g/dl Hct (42.0-52.0) % MCV (80.0-98.0) fL MCH (27.0-33.0) pg MCHC (31.0-36.0) g/dl RDW (11.0-16.0) % Plt Count (160-400) X10*3/uL MPV (9.4-12.4) fL Immature Gran % (Auto) (0.0-0.4) % Neut % (Auto) (45-73) % Lymph % (Auto) (20-40) % Stonewall % (Auto) (2-11) % Eos % (Auto) (0-4) % Baso % (Auto) (0-2) % Lymph # (Auto) (1.2-4.9) X10*3/uL [place]wall # (Auto) (0.1-1.2) X10*3/uL Eos # (Auto) (0.0-0.4) X10*3/uL Baso # (Auto) (0.0-0.2) X10*3/uL Abs Immat Gran (auto) (0.00-0.03) X10*3/uL Absolute Neuts (auto) (2.0-8.3) x10*3/uL Absolute Nucleated RBC (0.0-0.012) X10*3/uL Nucleated RBC % (auto) (0.0-0.2) /100WBC PT 12.5 (10.0-13.1) SEC INR 1.1 (0.9-1.1) Sodium 145 (135-145) mmol/L Potassium 4.1 (3.3-5.1) mmol/L Chloride 106 (96-108) mmol/L Carbon Dioxide 32 H (22-29) mmol/L Anion Gap 11 L (12-20) BUN 13 (9-16) mg/dL Creatinine 0.87 (0.5-1.4) mg/dL Estim Creat Clear Calc 125.1 Estimated GFR > 60 Random Glucose 89 (60-115) mg/dL Calcium 9.1 (8.4-10.2) mg/dL Magnesium 2.1 (1.6-2.6) mg/dL Total Bilirubin 0.2 (0.0-1.0) mg/dL AST 19 (5-37) U/L ALT 18 (0-40) U/L Alkaline Phosphatase 62 (39-117) U/L Total Protein 7.0 (6.5-8.0) g/dL Albumin 4.1 (3.5-5.0) g/dL Lipase 15 (8-78) U/L Salicylates < 5.0 L (15-30) mg/dL Urine Opiates Screen (Not Detect) Urine Fentanyl Screen (Not Detect) Ur Barbiturates Screen (Not Detect) Ur Phencyclidine Scrn (Not Detect) Ur Amphetamines Screen (Not Detect) U Benzodiazepines Scrn (Not Detect) Urine Cocaine Screen (Not Detect) U Marijuana (THC) Screen (Not Detect) Ethyl Alcohol < 10 mg/dL Influenza Type A (PCR) (Negative) Influenza Type B (PCR) (Negative) RSV RNA Qual (PCR) (Negative) SARS-CoV-2 RNA (RT-PCR) (Negative) <KARIN Benito - Last Filed: 02/14/23 15:59> Lab Results 02/14/23 02/14/23 02/14/23 Range/Units 17:41 17:46 18:27 WBC 7.1 (4.8-10.8) X10*3/uL RBC 4.83 (4.60-5.80) X10*6/uL Hgb 13.8 L (14.0-18.0) g/dl Hct 42.3 (42.0-52.0) % MCV 87.6 (80.0-98.0) fL MCH 28.6 (27.0-33.0) pg MCHC 32.6 (31.0-36.0) g/dl RDW 12.8 (11.0-16.0) % Plt Count 282 (160-400) X10*3/uL MPV 9.7 (9.4-12.4) fL Immature Gran % (Auto) 0.3 (0.0-0.4) % Neut % (Auto) 45.6 (45-73) % Lymph % (Auto) 31.6 (20-40) % Stonewall % (Auto) 5.5 (2-11) % Eos % (Auto) 16.4 H (0-4) % Baso % (Auto) 0.6 (0-2) % Lymph # (Auto) 2.3 (1.2-4.9) X10*3/uL [place] # (Auto) 0.4 (0.1-1.2) X10*3/uL Eos # (Auto) 1.2 H (0.0-0.4) X10*3/uL Baso # (Auto) 0.0 (0.0-0.2) X10*3/uL Abs Immat Gran (auto) 0.02 (0.00-0.03) X10*3/uL Absolute Neuts (auto) 3.3 (2.0-8.3) x10*3/uL Absolute Nucleated RBC 0.000 (0.0-0.012) X10*3/uL Nucleated RBC % (auto) 0.0 (0.0-0.2) /100WBC PT (10.0-13.1) SEC INR (0.9-1.1) Sodium (135-145) mmol/L Potassium (3.3-5.1) mmol/L Chloride (96-108) mmol/L Carbon Dioxide (22-29) mmol/L Anion Gap (12-20) BUN (9-16) mg/dL Creatinine (0.5-1.4) mg/dL Estim Creat Clear Calc Estimated GFR Random Glucose (60-115) mg/dL Calcium (8.4-10.2) mg/dL Magnesium (1.6-2.6) mg/dL Total Bilirubin (0.0-1.0) mg/dL AST (5-37) U/L ALT (0-40) U/L Alkaline Phosphatase (39-117) U/L Total Protein (6.5-8.0) g/dL Albumin (3.5-5.0) g/dL Lipase (8-78) U/L Salicylates (15-30) mg/dL Urine Opiates Screen POSITIVE H (Not Detect) Urine Fentanyl Screen POSITIVE H (Not Detect) Ur Barbiturates Screen Not Detected (Not Detect) Ur Phencyclidine Scrn Not Detected (Not Detect) Ur Amphetamines Screen Not Detected (Not Detect) U Benzodiazepines Scrn Not Detected (Not Detect) Urine Cocaine Screen POSITIVE H (Not Detect) U Marijuana (THC) Screen POSITIVE H (Not Detect) Ethyl Alcohol mg/dL Influenza Type A (PCR) NEGATIVE (Negative) Influenza Type B (PCR) NEGATIVE (Negative) RSV RNA Qual (PCR) NEGATIVE (Negative) SARS-CoV-2 RNA (RT-PCR) NEGATIVE (Negative) 02/14/23 02/14/23 02/14/23 Range/Units 18:27 18:27 18:27 WBC (4.8-10.8) X10*3/uL RBC (4.60-5.80) X10*6/uL Hgb (14.0-18.0) g/dl Hct (42.0-52.0) % MCV (80.0-98.0) fL MCH (27.0-33.0) pg MCHC (31.0-36.0) g/dl RDW (11.0-16.0) % Plt Count (160-400) X10*3/uL MPV (9.4-12.4) fL Immature Gran % (Auto) (0.0-0.4) % Neut % (Auto) (45-73) % Lymph % (Auto) (20-40) % [place]wall % (Auto) (2-11) % Eos % (Auto) (0-4) % Baso % (Auto) (0-2) % Lymph # (Auto) (1.2-4.9) X10*3/uL [place] # (Auto) (0.1-1.2) X10*3/uL Eos # (Auto) (0.0-0.4) X10*3/uL Baso # (Auto) (0.0-0.2) X10*3/uL Abs Immat Gran (auto) (0.00-0.03) X10*3/uL Absolute Neuts (auto) (2.0-8.3) x10*3/uL Absolute Nucleated RBC (0.0-0.012) X10*3/uL Nucleated RBC % (auto) (0.0-0.2) /100WBC PT 12.5 (10.0-13.1) SEC INR 1.1 (0.9-1.1) Sodium 145 (135-145) mmol/L Potassium 4.1 (3.3-5.1) mmol/L Chloride 106 (96-108) mmol/L Carbon Dioxide 32 H (22-29) mmol/L Anion Gap 11 L (12-20) BUN 13 (9-16) mg/dL Creatinine 0.87 (0.5-1.4) mg/dL Estim Creat Clear Calc 125.1 Estimated GFR > 60 Random Glucose 89 (60-115) mg/dL Calcium 9.1 (8.4-10.2) mg/dL Magnesium 2.1 (1.6-2.6) mg/dL Total Bilirubin 0.2 (0.0-1.0) mg/dL AST 19 (5-37) U/L ALT 18 (0-40) U/L Alkaline Phosphatase 62 (39-117) U/L Total Protein 7.0 (6.5-8.0) g/dL Albumin 4.1 (3.5-5.0) g/dL Lipase 15 (8-78) U/L Salicylates < 5.0 L (15-30) mg/dL Urine Opiates Screen (Not Detect) Urine Fentanyl Screen (Not Detect) Ur Barbiturates Screen (Not Detect) Ur Phencyclidine Scrn (Not Detect) Ur Amphetamines Screen (Not Detect) U Benzodiazepines Scrn (Not Detect) Urine Cocaine Screen (Not Detect) U Marijuana (THC) Screen (Not Detect) Ethyl Alcohol < 10 mg/dL Influenza Type A (PCR) (Negative) Influenza Type B (PCR) (Negative) RSV RNA Qual (PCR) (Negative) SARS-CoV-2 RNA (RT-PCR) (Negative) <KARIN Ivy - Last Filed: 02/14/23 20:18> Core Measures AMI core measures followed: Yes <KARIN Iyv - Last Filed: 02/14/23 20:18> Measure exclusions: not indicated <KARIN Ivy - Last Filed: 02/14/23 20:18> Critical Care Time Critical Care Time Critical Care Time: No <KARIN Ivy Last Filed: 02/14/23 20:18> Discharge Plan Discharge Clinical Impression: Opioid use disorder, Suicidal ideation, Depression, Acute anxiety, Inguinal adenopathy, Cellulitis <KARIN Benito - Last Filed: 02/14/23 15:59> Patient Disposition: Still a Patient <KARIN Benito - Last Filed: 02/14/23 15:59> Prescriptions: No Action fluoxetine 10 mg capsule 10 mg PO DAILY 30 Days Qty: 30 0RF albuterol sulfate [Ventolin HFA] 90 mcg/actuation HFA aerosol inhaler 2 puff inhalation Q6H PRN (Reason: shortness of breath or wheezing) 30 Days Qty: 8 2RF clonidine HCl 0.1 mg tablet 0.1 mg PO BID PRN (Reason: anxiety) 30 Days Qty: 60 0RF Protocol: Hold for SBP< HOLD for SBP < : 90 hydroxyzine HCl 50 mg tablet 50 mg PO BID PRN (Reason: Anxiety) 30 Days Qty: 60 0RF quetiapine 200 mg tablet 200 mg PO BEDTIME 30 Days Qty: 30 0RF nicotine (polacrilex) 2 mg Gum 4 mg buccal Q2H PRN (Reason: Nicotine Cravings) 30 Days Qty: 100 0RF multivitamin Tablet 1 tab PO DAILY <KARIN Benito - Last Filed: 02/14/23 15:59> Interventions: [place]-Suicide Risk Severity Scale Last Done: 02/14/23 17:30 <KARIN Benito Last Filed: 02/14/23 15:59>
--- NOTE | 2023-02-14 15:57 | ECG_ITS ---
Test Reason : SI Blood Pressure : / mmHG Vent. Rate : 060 BPM Atrial Rate : 060 BPM P-R Int : 130 ms QRS Dur : 084 ms QT Int : 400 ms P-R-T Axes : 061 063 051 degrees QTc Int : 400 ms Normal sinus rhythm Normal ECG When compared with ECG of 13-FEB-2023 14:04, No significant change was found Referred By: Roxy Barrett Electronically Signed By:JACLYN FLOR
--- NOTE | 2023-02-14 16:41 | PC.NURSE ---
Pt ambulatory to Unit. He reports using Heroin. He is lethargic at times with periods of euphoria noted. Pt was given food, went to his room, sat on the bed and nodding out. Pt was evaluated by ED Provider and aroused.
[2023-02-14] MEDS: Doxycycline Monohydrate 100 MG CAPSULE PO ×2 (17:05→21:21)
[2023-02-14 18:16] LABS: Amphetamine Screen Urine Not Detected (Not Detect); Barbiturates, Urine Not Detected (Not Detect); Benzodiazepines Screen Urine Not Detected (Not Detect); Cannabinoid Screen Urine POSITIVE (Not Detect); Cocaine Screen Urine POSITIVE (Not Detect); Fentanyl, urine POSITIVE (Not Detect); Opiate Screen Urine POSITIVE (Not Detect); Phencyclidine Screen Urine Not Detected (Not Detect)
--- NOTE | 2023-02-14 18:17 | PHA.MEDREC ---
Pharmacy Consult ? Medication Reconciliation Pharmacy has completed the medication reconciliation. Patient states they last took suboxone in october and stopped due to moving to [place] for work. His other meds, according to him, he takes regularly except the prozac. He only takes that when high to calm himself down. Added Suboxone dose to list although not confirming Cedric
[2023-02-14 18:32] LABS: MANUAL DIFF FLAG NO
[2023-02-14 18:34] LABS: Basophils Percent Auto 0.6 % (0-2); Eosinophils Absolute Auto 1.2 X10*3/uL (0.0-0.4); Eosinophils Percent Auto 16.4 % (0-4); Hematocrit 42.3 % (42.0-52.0); Hemoglobin 13.8 g/dl (14.0-18.0); Imm Gran Abs Auto 0.02 X10*3/uL (0.00-0.03); Imm Gran Pct Auto 0.3 % (0.0-0.4); Lymphocytes Absolute Auto 2.3 X10*3/uL (1.2-4.9); Lymphocytes Percent Auto 31.6 % (20-40); Mean Corpuscular HGB Conc 32.6 g/dl (31.0-36.0); Mean Corpuscular Hemoglobin 28.6 pg (27.0-33.0); Mean Corpuscular Volume 87.6 fL (80.0-98.0); Mean Platelet Volume 9.7 fL (9.4-12.4); Monocytes Absolute Auto 0.4 X10*3/uL (0.1-1.2); Monocytes Percent Auto 5.5 % (2-11); Neutrophils Absolute Auto 3.3 x10*3/uL (2.0-8.3); Neutrophils Percent Auto 45.6 % (45-73); Platelet Count 282 X10*3/uL (160-400); Red Blood Count 4.83 X10*6/uL (4.60-5.80); Red Cell Distribution Width 12.8 % (11.0-16.0); White Blood Count 7.1 X10*3/uL (4.8-10.8)
[2023-02-14 18:46] LABS: INTERNATIONAL NORM RATIO 1.1 (0.9-1.1); Prothrombin Time 12.5 SEC (10.0-13.1)
[2023-02-14 18:54] LABS: Influenza A PCR NEGATIVE (Negative); Influenza B PCR NEGATIVE (Negative); Resp Syncy Virus RNA Qual PCR NEGATIVE (Negative); SARS COV2 PCR INHOUSE NEGATIVE (Negative)
[2023-02-14 19:00] LABS: Alanine Aminotransferase 18 U/L (0-40); Albumin Level 4.1 g/dL (3.5-5.0); Alkaline Phosphatase 62 U/L (39-117); Anion Gap 11 (12-20); Aspartate Amino Transferase 19 U/L (5-37); Bilirubin Total 0.2 mg/dL (0.0-1.0); Blood Urea Nitrogen 13 mg/dL (9-16); Calcium 9.1 mg/dL (8.4-10.2); Carbon Dioxide 32 mmol/L (22-29); Chloride 106 mmol/L (96-108); Creatinine Clr Calc Pharmacy 125.1; Estimated Glomerular Filt Rate > 60; Ethanol < 10 mg/dL; Glucose Random 89 mg/dL (60-115); Lipase 15 U/L (8-78); Magnesium 2.1 mg/dL (1.6-2.6); Potassium 4.1 mmol/L (3.3-5.1); Sodium 145 mmol/L (135-145)
[2023-02-14 19:08] LABS: Salicylate < 5.0 mg/dL (15-30)
[2023-02-14 20:16] LABS: Acetaminophen LAB < 17 mcg/mL (<30)
[2023-02-14] MEDS: Albuterol Sulfate 90 MCG 8 GM INHALER 2 PUFF INHALE (21:21)
[2023-02-14] MEDS: QUEtiapine Fumarate 200 MG TABLET PO (21:21)
[2023-02-14 22:22] LABS: Appearance Urine Clear; Color Urine Yellow; Glucose Urine UA Negative (Negative); Leukocyte Esterase Urine Negative (Negative); Nitrite Urine Negative (Negative); PH 5.5 (5.0-9.0); Urine Blood Negative (Negative); Urine Ketones Negative (Negative); Urine Protein Negative (Neg-Trace)
--- NOTE | 2023-02-15 00:05 | MHC.CARE ---
Pt was evaluated by the CARE Team and is an IP bedasearch
[2023-02-15 04:13] LABS: Syphilis Screen Nonreactive (Nonreactive)
[2023-02-15 04:19] LABS: HBS Num1 76.81 mIU/mL (0-7.99); HBc Num1 0.08 S/CO (0.00-0.79); HBsAGNum1 0.43 S/CO (0.00-0.99); HIV AB/AG Nonreactive (Nonreactive); HIV Num 1 0.05 S/CO (0.00-0.99); Hepatitis A Antibody IgM 0.22 Index (0-0.79); Hepatitis B Core Antibody Nonreactive (Nonreactive); Hepatitis B Surface Antigen Negative (Negative); ~HepC Num1 0.11 S/CO (0.00-0.79); ~Hepatitis A Antibody IgM Nonreactive (Nonreactive); ~Hepatitis B Surface Antibody REACTIVE (Nonreactive); ~Hepatitis C Antibody Nonreactive (Nonreactive)
[2023-02-15 05:40] LABS: CT PCR NOT DETECTED (Not Detect.); NG PCR NOT DETECTED (Not Detect.)
--- NOTE | 2023-02-15 06:18 | PC.NURSE ---
Patient slept through the night, no distress observed/reported, behavior non concerning, medication compliant, patient engaged well with care Team, disposition is voluntary inpatient bed search, VSS, will continue to monitor.
[2023-02-15 06:21] VITALS: BP 111/64; PULSE 54; RESP 16; TEMP 36.7; O2SAT 98
[2023-02-15] MEDS: FLUoxetine HCl 10 MG CAPSULE PO (08:13)
[2023-02-15] MEDS: Multivitamin TABLET 1 TAB PO (08:13)
[2023-02-15] MEDS: Doxycycline Monohydrate 100 MG CAPSULE PO ×2 (08:46→22:02)
[2023-02-15] MEDS: hydrOXYzine HCL 50 MG TABLET PO (10:37)
--- NOTE | 2023-02-15 12:33 | PC.NURSE ---
Nurse to nurse for m5 completed
[2023-02-15 13:34] VITALS: BP 130/82; PULSE 76; RESP 16; TEMP 37.4; O2SAT 98
[2023-02-15 15:19] VITALS: BP 134/68; PULSE 61; RESP 18; TEMP 37.5; O2SAT 98
[2023-02-15] MEDS: cloNIDine HCL 0.1 MG TABLET PO (15:38)
[2023-02-15] MEDS: OLANZapine 5 MG TABLET PO (15:38)
--- NOTE | 2023-02-15 15:40 | PC.NURSE ---
Pt endorsing increasing anxiety, waiting to go upstairs to M5. States he wants to get out of here . Pt medicated per mar, reassured by this RN that someone would be coming to get him shortly.
[2023-02-15 16:30] VITALS: BP 144/73; PULSE 69; RESP 14; TEMP 36.8; O2SAT 99
[2023-02-15] MEDS: LORazepam 1 MG TABLET PO ×2 (16:40→22:02)
--- NOTE | 2023-02-15 17:37 | PC.NURSE ---
PT signed a 3 day notice 02/15/23, up 02/20/23
--- NOTE | 2023-02-15 19:32 | PC.ADMIT ---
PT is a 32 year old israeli speaking male that arrived on this unit @ 16:27 from the [facility]. Legal status: conditional voluntary. PT was placed on 15 minute safety checks. PT presented to the ER secondary to increased depression and worsening SI since losing his job. PT sniffed 2 bundles of heroin in hopes of not waking up. PT reports daily inhalation of 5 bags of heroin as well as drinking at least of sleeve of nips daily for a few months . PT has a hx of requiring IPLOC once here on M5 in October 2022 after attempting suicide via heroin overdose. Of note, pt left detox AMA shortly before attempting overdose. PT does report taking suboxone in the past with some success. COVID neg, UDS + for opiates, fentanyl, cocaine, and marijuana. EKG completed. CIWA ordered q 4 hours. PT denies current SI/HI, states I want to live for my children . Denies AH/VH. All legals signed, treatment plan and safety tool completed. PT resting comfortably in his room at this time.
[2023-02-15] MEDS: QUEtiapine Fumarate 200 MG TABLET PO (22:02)
[2023-02-16 06:00] VITALS: BP 117/67; PULSE 84; RESP 16; TEMP 36.8; O2SAT 99
[2023-02-16 07:00] VITALS: BMI 21.1
[2023-02-16] MEDS: Doxycycline Monohydrate 100 MG CAPSULE PO (08:11)
[2023-02-16] MEDS: FLUoxetine HCl 10 MG CAPSULE PO (08:11)
[2023-02-16] MEDS: Thiamine HCL 100 MG TABLET PO (08:11)
[2023-02-16] MEDS: Multivitamin TABLET 1 TAB PO (08:11)
[2023-02-16] MEDS: LORazepam 1 MG TABLET PO (08:26)
[2023-02-16] MEDS: Nicotine Polacrilex 2 MG GUM 4 MG BUCCAL (08:26)
--- NOTE | 2023-02-16 10:01 | P.HPPS_ITS ---
HPI Date of Service: 02/16/23 Chief Complaint: Depression SI Sources of Information: patient interviewed, chart reviewed and crisis/core team assessment reviewed HPI Subjective Notes: Mcpherson Warning, Conditional Voluntary and 3 Day Narrative: Kun is a 32-year-old male with history of PTSD, substance abuse, mood disorder who self presents, reporting depression and SI, saying he intentionally overdosed on opiates. On admission, patient says that he lied about being suicidal but just needed to come into the unit for a brief time to regulate himself and have his groin evaluated for fluctuating bump. He denies any AVH at all. Patient says he knows he should not have lied; he refers to his last October 2022 admission saying that time it was different and he did in fact overdose, but that since then he has been doing overall well and taking the medications he was prescribed, via refills from PCP, and has been sober until this one relapse. Patient is very eager for discharge today saying he needs to get to work tomorrow so he will not lose his apartment. Patient is very afraid of losing his apartment, worried that it will be a setback with DCF and getting a chance to see his kids more often. Initially patient said he had a pick his 2 kids up from school since their mother is out of town. Per Assessment Nurse and social science research assistant met with patient and explained this is not an option and patient agreed saying now his aunt will be able to pick them up and they will be staying at their grandmother's house (who is already watching the little one). outreach and education social worker called and spoke with with this relative (Aracelis) who affirms that says she is in fact picking up both kids and that they will be staying at the grandmother's house, and not with patient. Patient reiterates that he is working hard to stay stable, has an apartment and has got himself a new job (after losing one 3 weeks ago) for which he is both excited and nervous as he is trying to get more access to his children. Patient again asks for discharge today again saying he is safe and stable. He is ambivalent about Suboxone, not wanting to get into precipitated withdrawal however he is open to considering it has an option. He also says he wants to remain on current medication regimen. Past Psychiatric History: -Hx of being treated for ADHD in childhood -Has OP therapist at [facility] -Denies hx of IPLOC -Denies previous hx of SA or SIB [facility] on 10/18/22 due to a suicide attempt by OD on heroin requiring 8 mg of intranasal Narcan. left detox AMA in April or May 2022 to go back to work and provide for his kids financially, however he relapsed on substances shortly after. Medical Evaluation Reviewed: Yes ED note: Patient now wants me to evaluate his right inguinal region he states that there is a bump has been fluctuating in size of the past few weeks.? He reports it is sore and uncomfortable at times.? He denies any inciting trauma.? Has never had this evaluated.? No concerns for STDs he tells me he is only sexually active with 1 sexual partner however he is not a posting tested does not feel as though he needs prophylactic treatment...? Had a venous duplex done on right lower extremity yesterday for swelling no evidence of DVT, negative Juan on exam.? I suspect right lower extremity has cellulitis will start him on doxycycline.? Patient did have a pelvic ultrasound yesterday that showed adenopathy however patient does report slight discomfort to testicles will obtain testicular Doppler.? No need to repeat venous duplex and I do not suspicion for DVT patient without risk factors. [facility] Medical History ADHD (attention deficit hyperactivity disorder) Patient denies medical problems Post traumatic stress disorder (PTSD) Substance abuse Surgical History No pertinent past surgical history Family History: -Substance abuse, bipolar DO Social History: -Single, homeless (stays with kids mother, his mother, or his friend?s house). 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 Diagnostics Vital Signs (24Hr): Vital Signs - 24 hr 02/15/23 13:34 02/15/23 15:19 02/15/23 16:30 Temperature 99.4 F 99.5 F 98.2 F Pulse Rate 76 61 69 Respiratory Rate 16 18 14 Blood Pressure 130/82 134/68 144/73 H Pulse Oximetry 98 98 99 Oxygen Delivery Method Room Air Room Air Room Air 02/16/23 06:00 Temperature 98.2 F Pulse Rate 84 Respiratory Rate 16 Blood Pressure 117/67 Pulse Oximetry 99 Oxygen Delivery Method Room Air BMI result Body Mass Index 22.3 Labs 02/14/23 18:27 02/14/23 18:27 Labs: Laboratory Results - last 48 hr 02/14/23 02/14/23 02/14/23 17:41 17:41 17:41 WBC RBC Hgb Hct MCV MCH MCHC RDW Plt Count MPV Immature Gran % (Auto) Neut % (Auto) Lymph % (Auto) [place] % (Auto) Eos % (Auto) Baso % (Auto) Lymph # (Auto) [place] # (Auto) Eos # (Auto) Baso # (Auto) Abs Immat Gran (auto) Absolute Neuts (auto) Absolute Nucleated RBC Nucleated RBC % (auto) PT INR Sodium Potassium Chloride Carbon Dioxide Anion Gap BUN Creatinine Estim Creat Clear Calc Estimated GFR Random Glucose Calcium Magnesium Total Bilirubin AST ALT Alkaline Phosphatase Total Protein Albumin Lipase Urine Color Yellow Urine Appearance Clear Urine pH 5.5 Ur Specific [place] 1.020 Urine Protein Negative Urine Glucose (UA) Negative Urine Ketones Negative Urine Blood Negative Urine Nitrite Negative Ur Leukocyte Esterase Negative Salicylates Urine Opiates Screen POSITIVE H Urine Fentanyl Screen POSITIVE H Acetaminophen Ur Barbiturates Screen Not Detected Ur Phencyclidine Scrn Not Detected Ur Amphetamines Screen Not Detected U Benzodiazepines Scrn Not Detected Urine Cocaine Screen POSITIVE H U Marijuana (THC) Screen POSITIVE H Ethyl Alcohol T.pallidum Ab (EIA) Chlam trachomat DNA PCR NOT DETECTED Hepatitis A IgM Ab Hep Bs Antigen Hep Bs Antibody Hep B Core Total Ab Hepatitis C Ab (EIA) HIV 1&2 Ab/P24 Ag 4thGn Influenza Type A (PCR) Influenza Type B (PCR) N.gonorrhoeae DNA (PCR) NOT DETECTED RSV RNA Qual (PCR) SARS-CoV-2 RNA (RT-PCR) 02/14/23 02/14/23 02/14/23 17:46 18:27 18:27 WBC 7.1 RBC 4.83 Hgb 13.8 L Hct 42.3 MCV 87.6 MCH 28.6 MCHC 32.6 RDW 12.8 Plt Count 282 MPV 9.7 Immature Gran % (Auto) 0.3 Neut % (Auto) 45.6 Lymph % (Auto) 31.6 [place] % (Auto) 5.5 Eos % (Auto) 16.4 H Baso % (Auto) 0.6 Lymph # (Auto) 2.3 [place] # (Auto) 0.4 Eos # (Auto) 1.2 H Baso # (Auto) 0.0 Abs Immat Gran (auto) 0.02 Absolute Neuts (auto) 3.3 Absolute Nucleated RBC 0.000 Nucleated RBC % (auto) 0.0 PT 12.5 INR 1.1 Sodium Potassium Chloride Carbon Dioxide Anion Gap BUN Creatinine Estim Creat Clear Calc Estimated GFR Random Glucose Calcium Magnesium Total Bilirubin AST ALT Alkaline Phosphatase Total Protein Albumin Lipase Urine Color Urine Appearance Urine pH Ur Specific [place] Urine Protein Urine Glucose (UA) Urine Ketones Urine Blood Urine Nitrite Ur Leukocyte Esterase Salicylates Urine Opiates Screen Urine Fentanyl Screen Acetaminophen Ur Barbiturates Screen Ur Phencyclidine Scrn Ur Amphetamines Screen U Benzodiazepines Scrn Urine Cocaine Screen U Marijuana (THC) Screen Ethyl Alcohol T.pallidum Ab (EIA) Chlam trachomat DNA PCR Hepatitis A IgM Ab Hep Bs Antigen Hep Bs Antibody Hep B Core Total Ab Hepatitis C Ab (EIA) HIV 1&2 Ab/P24 Ag 4thGn Influenza Type A (PCR) NEGATIVE Influenza Type B (PCR) NEGATIVE N.gonorrhoeae DNA (PCR) RSV RNA Qual (PCR) NEGATIVE SARS-CoV-2 RNA (RT-PCR) NEGATIVE 02/14/23 02/14/23 02/14/23 18:27 18:27 18:27 WBC RBC Hgb Hct MCV MCH MCHC RDW Plt Count MPV Immature Gran % (Auto) Neut % (Auto) Lymph % (Auto) [place] % (Auto) Eos % (Auto) Baso % (Auto) Lymph # (Auto) [place] # (Auto) Eos # (Auto) Baso # (Auto) Abs Immat Gran (auto) Absolute Neuts (auto) Absolute Nucleated RBC Nucleated RBC % (auto) PT INR Sodium 145 Potassium 4.1 Chloride 106 Carbon Dioxide 32 H Anion Gap 11 L BUN 13 Creatinine 0.87 Estim Creat Clear Calc 125.1 Estimated GFR > 60 Random Glucose 89 Calcium 9.1 Magnesium 2.1 Total Bilirubin 0.2 AST 19 ALT 18 Alkaline Phosphatase 62 Total Protein 7.0 Albumin 4.1 Lipase 15 Urine Color Urine Appearance Urine pH Ur Specific [place] Urine Protein Urine Glucose (UA) Urine Ketones Urine Blood Urine Nitrite Ur Leukocyte Esterase Salicylates < 5.0 L Urine Opiates Screen Urine Fentanyl Screen Acetaminophen < 17 Ur Barbiturates Screen Ur Phencyclidine Scrn Ur Amphetamines Screen U Benzodiazepines Scrn Urine Cocaine Screen U Marijuana (THC) Screen Ethyl Alcohol < 10 T.pallidum Ab (EIA) Chlam trachomat DNA PCR Hepatitis A IgM Ab Nonreactive Hep Bs Antigen Negative Hep Bs Antibody REACTIVE Hep B Core Total Ab Nonreactive Hepatitis C Ab (EIA) Nonreactive HIV 1&2 Ab/P24 Ag 4thGn Nonreactive Influenza Type A (PCR) Influenza Type B (PCR) N.gonorrhoeae DNA (PCR) RSV RNA Qual (PCR) SARS-CoV-2 RNA (RT-PCR) 02/14/23 18:27 WBC RBC Hgb Hct MCV MCH MCHC RDW Plt Count MPV Immature Gran % (Auto) Neut % (Auto) Lymph % (Auto) [place] % (Auto) Eos % (Auto) Baso % (Auto) Lymph # (Auto) [place] # (Auto) Eos # (Auto) Baso # (Auto) Abs Immat Gran (auto) Absolute Neuts (auto) Absolute Nucleated RBC Nucleated RBC % (auto) PT INR Sodium Potassium Chloride Carbon Dioxide Anion Gap BUN Creatinine Estim Creat Clear Calc Estimated GFR Random Glucose Calcium Magnesium Total Bilirubin AST ALT Alkaline Phosphatase Total Protein Albumin Lipase Urine Color Urine Appearance Urine pH Ur Specific [place] Urine Protein Urine Glucose (UA) Urine Ketones Urine Blood Urine Nitrite Ur Leukocyte Esterase Salicylates Urine Opiates Screen Urine Fentanyl Screen Acetaminophen Ur Barbiturates Screen Ur Phencyclidine Scrn Ur Amphetamines Screen U Benzodiazepines Scrn Urine Cocaine Screen U Marijuana (THC) Screen Ethyl Alcohol T.pallidum Ab (EIA) Nonreactive Chlam trachomat DNA PCR Hepatitis A IgM Ab Hep Bs Antigen Hep Bs Antibody Hep B Core Total Ab Hepatitis C Ab (EIA) HIV 1&2 Ab/P24 Ag 4thGn Influenza Type A (PCR) Influenza Type B (PCR) N.gonorrhoeae DNA (PCR) RSV RNA Qual (PCR) SARS-CoV-2 RNA (RT-PCR) Imaging Radiology Impressions: ITS Impressions Scrotum Ultrasound 02/14/23 17:10 IMPRESSION: Normal ultrasound of the right and left testicle. No acute abnormality. Scrotum Ultrasound 02/14/23 17:10 IMPRESSION: Normal ultrasound of the right and left testicle. No acute abnormality. Meds/Allergies Meds Home Medications Medication Instructions Recorded Confirmed Type multivitamin 1 tab PO DAILY 02/14/23 02/14/23 History Allergies Allergies Allergy/AdvReac Type Severity Reaction Status Date / Time No Known Allergies Allergy Verified 02/09/22 08:45 Mental Status Exam Mental Status Exam Narrative: A&O. Behavior is friendly, cooperative, engaged; In casual, appropriate attire, glasses, tattoos, well kempt, normal body habitus. Good eye contact, attentive; Mood: good and affect congruent; No Tics or Tremors. No abnormal involuntary movements. Non-pressured and spontaneous speech with regular rate and rhythm, normal volume and prosody. No prolonged speech latency or dysarthria. Thought process is linear; Thought content on discharge and recently acquired a job; no delusional/paranoid ideations. Denies SI/SIB/HI upon inquiry. Denies AVH and not internally preoccupied; No known cognitive or memory impairment. Insight/ Judgment impaired but adequate and at baseline. Assessment & Plan Assessment & Plan (1) Adjustment disorder with mixed disturbance of emotions and conduct in remission: Status: Acute Code(s): F43.25 - Adjustment disorder with mixed disturbance of emotions and conduct (2) Opioid use disorder: Status: Acute Code(s): F11.90 - Opioid use, unspecified, uncomplicated (3) Post traumatic stress disorder (PTSD): Status: Acute Code(s): F43.10 - Post-traumatic stress disorder, unspecified (4) Inguinal adenopathy: Status: Acute Code(s): R59.0 - Localized enlarged lymph nodes (5) Cellulitis: Status: Acute Code(s): L03.90 - Cellulitis, unspecified Plan Kun is a 32-year-old male with history of PTSD, substance abuse, mood disorder who self presents, reporting depression and SI, saying he intentionally overdosed on opiates. On admission, patient says that he lied about being suicidal but just needed to come into the unit for a brief time to regulate himself and have his growing evaluated for fluctuating bump. He denies any AVH at all. Patient says he knows he should not have lied; he also acknowledges that at his last October 2022 admission he did in fact overdose, but that since then he has been doing overall well and taking the medications he was prescribed via refills from PCP and has been sober but just had a relapse. Patient is very eager for discharge today saying he needs to get to work tomorrow so he will not lose his apartment. Patient is very afraid of losing his apartment, worried that it will be a setback with DCF and getting a chance to see his kids more often. Initially patient said he had a pick his 2 kids up from school since their mother is out of town. Per Assessment Nurse and social science research assistant met with patient that said this is not an option and patient instead said his aunt will be able to pick them up and have him stay at their grandmother's house (who is already watching the little one). outreach and education social worker did call and get in touch with this re lative (Aracelis) who says she is in fact picking up both kids and that they will be staying at the grandmother's house, not with patient. Patient reiterates that he is working hard to stay stable, has an apartment and has got himself a new job (after losing 1 3 weeks ago) for which he is both excited and nervous as he is trying to get more access to his children. Patient again asks for discharge today again saying he is safe and stable. He is ambivalent about Suboxone, not wanting to get into precipitated withdrawal however he is open to considering it has an option. He also says he wants to remain on current medication regimen. -the emergency room, inguinal/testicular area examined and unremarkable; lower extremity cellulitis noted and started on doxycycline Impression/plan: Patient reports he lied about suicidality in order to get quick admission, stabilizing get his groin evaluated. He denies any SI at all, any AVH and very much wants discharge since he is worried about losing a job that he just started. Social work was able to talk with patient's aunt who confirmed that his children will not be staying with him, but that she is picking them up and they will be staying with the grandmother. DCF is already involved. While patient remains vulnerable to relapse and mood dysregulation, this is a chronic issue. Currently he denies depression, anxiety or any SI and does not want treatment on the unit. Patient is at baseline and does not meet criteria for involuntary commitment. He is not in imminent risk for harm to self or others. Request honored. Patient educated on: diagnosis, medication risk/benefits and substance abuse Informed Consent: understands Reason for continued inpatient stay Substantial Risk for: stable for discharge Statement Statement: I have reviewed the history and physical and performed a pertinent examination on my patient. No changes have occurred unless specified. If the History and Physical was not performed prior to admission, the Hospitalist's service will be consulted for completing the admission physical. Time Spent With Patient Time: Total time managing care of this patient today ____ minutes.
--- NOTE | 2023-02-16 13:48 | PM.PSYDC ---
DS: Providers Provider Date of Service: 02/16/23 Date of admission: 02/15/23 14:06 Date of discharge: 02/16/23 Primary care physician: Gerald Christensen MD Attending physician on admission: Fermín Gutierrez Attending physician on discharge: Fermín Gutierrez DS: Medications Discharge Medications Home Medications: Home Medications Medication Instructions Recorded Confirmed multivitamin 1 tab PO DAILY 02/14/23 02/14/23 Previous Rx's Medication Instructions Recorded clonidine HCl 0.1 mg tablet 0.1 mg PO BID PRN anxiety 30 days 01/27/23 #60 tabs hydroxyzine HCl 50 mg tablet 50 mg PO BID PRN Anxiety 30 days 01/27/23 #60 tabs albuterol sulfate 90 mcg/actuation 2 puff inhalation Q6H PRN 02/16/23 aerosol inhaler shortness of breath or wheezing 30 days #8 grams doxycycline monohydrate 100 mg 100 mg PO BID 6 days #12 caps 02/16/23 capsule fluoxetine 10 mg capsule 10 mg PO DAILY 30 days #30 caps 02/16/23 nicotine (polacrilex) 2 mg gum 4 mg buccal Q2H PRN Nicotine 02/16/23 Cravings 30 days #100 ea quetiapine 200 mg tablet 200 mg PO BEDTIME 30 days #30 tabs 02/16/23 Mental Status Exam Mental Status Exam Narrative: A&O. Behavior is friendly, cooperative, engaged; In casual, appropriate attire, glasses, tattoos, well kempt, normal body habitus. Good eye contact, attentive; Mood: good and affect congruent; No Tics or Tremors. No abnormal involuntary movements. Non-pressured and spontaneous speech with regular rate and rhythm, normal volume and prosody. No prolonged speech latency or dysarthria. Thought process is linear; Thought content on discharge and recently acquired a job; no delusional/paranoid ideations. Denies SI/SIB/HI upon inquiry. Denies AVH and not internally preoccupied; No known cognitive or memory impairment. Insight/ Judgment impaired but adequate and at baseline. Data Data Completed and Pending Completed studies during hospitalization [Text1]: 02/14/23 02/14/23 02/14/23 17:41 17:41 17:41 WBC RBC Hgb Hct MCV MCH MCHC RDW Plt Count MPV Immature Gran % (Auto) Neut % (Auto) Lymph % (Auto) [place] % (Auto) Eos % (Auto) Baso % (Auto) Lymph # (Auto) [place] # (Auto) Eos # (Auto) Baso # (Auto) Abs Immat Gran (auto) Absolute Neuts (auto) Absolute Nucleated RBC Nucleated RBC % (auto) PT INR Sodium Potassium Chloride Carbon Dioxide Anion Gap BUN Creatinine Estim Creat Clear Calc Estimated GFR Random Glucose Calcium Magnesium Total Bilirubin AST ALT Alkaline Phosphatase Total Protein Albumin Lipase Urine Color Yellow Urine Appearance Clear Urine pH 5.5 Ur Specific [place] 1.020 Urine Protein Negative Urine Glucose (UA) Negative Urine Ketones Negative Urine Blood Negative Urine Nitrite Negative Ur Leukocyte Esterase Negative Salicylates Urine Opiates Screen POSITIVE H Urine Fentanyl Screen POSITIVE H Acetaminophen Ur Barbiturates Screen Not Detected Ur Phencyclidine Scrn Not Detected Ur Amphetamines Screen Not Detected U Benzodiazepines Scrn Not Detected Urine Cocaine Screen POSITIVE H U Marijuana (THC) Screen POSITIVE H Ethyl Alcohol T.pallidum Ab (EIA) Chlam trachomat DNA PCR NOT DETECTED Hepatitis A IgM Ab Hep Bs Antigen Hep Bs Antibody Hep B Core Total Ab Hepatitis C Ab (EIA) HIV 1&2 Ab/P24 Ag 4thGn Influenza Type A (PCR) Influenza Type B (PCR) N.gonorrhoeae DNA (PCR) NOT DETECTED RSV RNA Qual (PCR) SARS-CoV-2 RNA (RT-PCR) 02/14/23 02/14/23 02/14/23 17:46 18:27 18:27 WBC 7.1 RBC 4.83 Hgb 13.8 L Hct 42.3 MCV 87.6 MCH 28.6 MCHC 32.6 RDW 12.8 Plt Count 282 MPV 9.7 Immature Gran % (Auto) 0.3 Neut % (Auto) 45.6 Lymph % (Auto) 31.6 [place] % (Auto) 5.5 Eos % (Auto) 16.4 H Baso % (Auto) 0.6 Lymph # (Auto) 2.3 [place] # (Auto) 0.4 Eos # (Auto) 1.2 H Baso # (Auto) 0.0 Abs Immat Gran (auto) 0.02 Absolute Neuts (auto) 3.3 Absolute Nucleated RBC 0.000 Nucleated RBC % (auto) 0.0 PT 12.5 INR 1.1 Sodium Potassium Chloride Carbon Dioxide Anion Gap BUN Creatinine Estim Creat Clear Calc Estimated GFR Random Glucose Calcium Magnesium Total Bilirubin AST ALT Alkaline Phosphatase Total Protein Albumin Lipase Urine Color Urine Appearance Urine pH Ur Specific [place] Urine Protein Urine Glucose (UA) Urine Ketones Urine Blood Urine Nitrite Ur Leukocyte Esterase Salicylates Urine Opiates Screen Urine Fentanyl Screen Acetaminophen Ur Barbiturates Screen Ur Phencyclidine Scrn Ur Amphetamines Screen U Benzodiazepines Scrn Urine Cocaine Screen U Marijuana (THC) Screen Ethyl Alcohol T.pallidum Ab (EIA) Chlam trachomat DNA PCR Hepatitis A IgM Ab Hep Bs Antigen Hep Bs Antibody Hep B Core Total Ab Hepatitis C Ab (EIA) HIV 1&2 Ab/P24 Ag 4thGn Influenza Type A (PCR) NEGATIVE Influenza Type B (PCR) NEGATIVE N.gonorrhoeae DNA (PCR) RSV RNA Qual (PCR) NEGATIVE SARS-CoV-2 RNA (RT-PCR) NEGATIVE 02/14/23 02/14/23 02/14/23 18:27 18:27 18:27 WBC RBC Hgb Hct MCV MCH MCHC RDW Plt Count MPV Immature Gran % (Auto) Neut % (Auto) Lymph % (Auto) [place] % (Auto) Eos % (Auto) Baso % (Auto) Lymph # (Auto) [place] # (Auto) Eos # (Auto) Baso # (Auto) Abs Immat Gran (auto) Absolute Neuts (auto) Absolute Nucleated RBC Nucleated RBC % (auto) PT INR Sodium 145 Potassium 4.1 Chloride 106 Carbon Dioxide 32 H Anion Gap 11 L BUN 13 Creatinine 0.87 Estim Creat Clear Calc 125.1 Estimated GFR > 60 Random Glucose 89 Calcium 9.1 Magnesium 2.1 Total Bilirubin 0.2 AST 19 ALT 18 Alkaline Phosphatase 62 Total Protein 7.0 Albumin 4.1 Lipase 15 Urine Color Urine Appearance Urine pH Ur Specific [place] Urine Protein Urine Glucose (UA) Urine Ketones Urine Blood Urine Nitrite Ur Leukocyte Esterase Salicylates < 5.0 L Urine Opiates Screen Urine Fentanyl Screen Acetaminophen < 17 Ur Barbiturates Screen Ur Phencyclidine Scrn Ur Amphetamines Screen U Benzodiazepines Scrn Urine Cocaine Screen U Marijuana (THC) Screen Ethyl Alcohol < 10 T.pallidum Ab (EIA) Chlam trachomat DNA PCR Hepatitis A IgM Ab Nonreactive Hep Bs Antigen Negative Hep Bs Antibody REACTIVE Hep B Core Total Ab Nonreactive Hepatitis C Ab (EIA) Nonreactive HIV 1&2 Ab/P24 Ag 4thGn Nonreactive Influenza Type A (PCR) Influenza Type B (PCR) N.gonorrhoeae DNA (PCR) RSV RNA Qual (PCR) SARS-CoV-2 RNA (RT-PCR) 02/14/23 18:27 WBC RBC Hgb Hct MCV MCH MCHC RDW Plt Count MPV Immature Gran % (Auto) Neut % (Auto) Lymph % (Auto) [place] % (Auto) Eos % (Auto) Baso % (Auto) Lymph # (Auto) [place] # (Auto) Eos # (Auto) Baso # (Auto) Abs Immat Gran (auto) Absolute Neuts (auto) Absolute Nucleated RBC Nucleated RBC % (auto) PT INR Sodium Potassium Chloride Carbon Dioxide Anion Gap BUN Creatinine Estim Creat Clear Calc Estimated GFR Random Glucose Calcium Magnesium Total Bilirubin AST ALT Alkaline Phosphatase Total Protein Albumin Lipase Urine Color Urine Appearance Urine pH Ur Specific [place] Urine Protein Urine Glucose (UA) Urine Ketones Urine Blood Urine Nitrite Ur Leukocyte Esterase Salicylates Urine Opiates Screen Urine Fentanyl Screen Acetaminophen Ur Barbiturates Screen Ur Phencyclidine Scrn Ur Amphetamines Screen U Benzodiazepines Scrn Urine Cocaine Screen U Marijuana (THC) Screen Ethyl Alcohol T.pallidum Ab (EIA) Nonreactive Chlam trachomat DNA PCR Hepatitis A IgM Ab Hep Bs Antigen Hep Bs Antibody Hep B Core Total Ab Hepatitis C Ab (EIA) HIV 1&2 Ab/P24 Ag 4thGn Influenza Type A (PCR) Influenza Type B (PCR) N.gonorrhoeae DNA (PCR) RSV RNA Qual (PCR) SARS-CoV-2 RNA (RT-PCR) Imaging Diagnostic Imaging Impressions Scrotum Ultrasound 02/14/23 17:10 IMPRESSION: Normal ultrasound of the right and left testicle. No acute abnormality. Scrotum Ultrasound 02/14/23 17:10 IMPRESSION: Normal ultrasound of the right and left testicle. No acute abnormality. DS: Summary Hospital Course Hospital Course: Kun is a 32-year-old male with history of PTSD, substance abuse, mood disorder who self presents, reporting depression and SI, saying he intentionally overdosed on opiates. On admission, patient says that he lied about being suicidal but just needed to come into the unit for a brief time to regulate himself and have his growing evaluated for fluctuating bump. He denies any AVH at all. Patient says he knows he should not have lied; he also acknowledges that at his last October 2022 admission he did in fact overdose, but that since then he has been doing overall well and taking the medications he was prescribed via refills from PCP and has been sober but just had a relapse. Patient is very eager for discharge today saying he needs to get to work tomorrow so he will not lose his apartment. Patient is very afraid of losing his apartment, worried that it will be a setback with DCF and getting a chance to see his kids more often. Initially patient said he had a pick his 2 kids up from school since their mother is out of town. Program Advisor and social organization professor met with patient that said this is not an option and patient instead said his aunt will be able to pick them up and have him stay at their grandmother's house (who is already watching the little one). structural steel worker helper did call and get in touch with this relative (Aracelis) who says she is in fact picking up both kids and that they will be staying at the grandmother's house, not with patient. Patient reiterates that he is working hard to stay stable, has an apartment and has got himself a new job (after losing 1 3 weeks ago) for which he is both excited and nervous as he is trying to get more access to his children. Patient again asks for discharge today again saying he is safe and stable. He is ambivalent about Suboxone, not wanting to get into precipitated withdrawal however he is open to considering it has an option. He also says he wants to remain on current medication regimen. -the emergency room, inguinal/testicular area examined and unremarkable; lower extremity cellulitis noted and started on doxycycline Impression/plan: Patient reports he lied about suicidality in order to get quick admission, stabilizing get his groin evaluated. He denies any SI at all, any AVH and very much wants discharge since he is worried about losing a job that he just started. Social work was able to talk with patient's aunt who confirmed that his children will not be staying with him, but that she is picking them up and they will be staying with the grandmother. DCF is already involved. While patient remains vulnerable to relapse and mood dysregulation, this is a chronic issue. Currently he denies depression, anxiety or any SI and does not want treatment on the unit. Patient is at baseline and does not meet criteria for involuntary commitment. He is not in imminent risk for harm to self or others. Request honored. Time spent discussing smoking cessation with patient: 3 to 10 minutes Status at Discharge Overall status at discharge: patient is back to baseline Time Spent with Patient Time attestation: Total time managing care of this patient today ____ minutes. Time spent: Less than 30 minutes Discharge Plan Discharge Anticipated Discharge Date/Time: 02/16/23 14:00 Patient Disposition: Home, Self-Care Discharge Diagnosis: Adjustment disorder with disturbance of mood and conduct in full remission Referrals: Alana Sena MD [Physician] - (Office will call you to schedule a follow up appointment.) Discharge Medications: New doxycycline monohydrate 100 mg Capsule 100 mg PO BID 6 Days Qty: 12 0RF Continued multivitamin Tablet 1 tab PO DAILY nicotine (polacrilex) 2 mg Gum 4 mg buccal Q2H PRN (Reason: Nicotine Cravings) 30 Days Qty: 100 0RF quetiapine 200 mg tablet 200 mg PO BEDTIME 30 Days Qty: 30 0RF fluoxetine 10 mg capsule 10 mg PO DAILY 30 Days Qty: 30 0RF albuterol sulfate 90 mcg/actuation HFA aerosol inhaler 2 puff inhalation Q6H PRN (Reason: shortness of breath or wheezing) 30 Days Qty: 8 2RF No Action hydroxyzine HCl 50 mg tablet 50 mg PO BID PRN (Reason: Anxiety) 30 Days Qty: 60 0RF clonidine HCl 0.1 mg tablet 0.1 mg PO BID PRN (Reason: anxiety) 30 Days Qty: 60 0RF Protocol: Hold for SBP< HOLD for SBP < : 90 Discharge Orders: Discharge Order (Routine); Ordered 02/16/23 Ordered By: Fermín Gutierrez Diet: Regular diet Activity on Discharge: As tolerated Stand Alone Forms: Patient Portal Discharge page, Community Support Care Plan Goals: Maintain mood and safe behaviors Take medications as prescribed Continue to pursue sobriety Practice coping skills Continue with outpatient providers and reach out to them as needed Health Concerns: Mood stability and behaviors Sobriety Asthma Plan of Treatment: Follow up with your PCP, psychiatric provider and other outpatient providers regarding above concerns Take medications as prescribed Assessment: Risk assessment at time of discharge:? Patient was interviewed prior to discharge and found to be fully oriented and without any SI or HI. Patient has insight and demonstrates good judgment in terms of wanting to pursue treatment. Patient is not in imminent risk of harm to self or others and has a safety plan that includes presenting to the closest ER or calling 911 if feeling unsafe.? Patient has been observed closely by nursing and unit staff throughout admission; patient has not engaged in any behaviors that suggest dangerousness to self or others and has demonstrated appropriate behaviors and impulse control Discharge Date/Time: 02/16/23 14:25
== END 2023-02-16 14:25 | disposition home or self-care (01) | DRG 755 ==
LOC: HO.ED 16:31 → HO.PM5 02-15 14:13
PROVIDERS: Physician Assistant; Physician Assistant Medical; Admitting Provider Psychiatry & Neurology Psychiatry; Emergency Provider Student in an Organized Health Care Education/Training Program; PCP Student in an Organized Health Care Education/Training Program; Visit Provider Psychiatry & Neurology Psychiatry
DX: F43.25 Adjustment disorder with mixed disturbance of emotions and conduct (principal); R45.851 Suicidal ideations; L03.115 Cellulitis of right lower limb; F11.10 Opioid abuse, uncomplicated; F90.9 Attention-deficit hyperactivity disorder, unspecified type; F14.10 Cocaine abuse, uncomplicated; F17.210 Nicotine dependence, cigarettes, uncomplicated; F43.10 Post-traumatic stress disorder, unspecified; Z71.6 Tobacco abuse counseling; Z91.51 Personal history of suicidal behavior; Z59.01 Sheltered homelessness; Z20.822 Contact with and (suspected) exposure to COVID-19; Z79.899 Other long term (current) drug therapy
CPT/HCPCS: 0241U; 0353U; 36415; 76870; 80053; 80143; 80179; 80307; 81003; 82077; 83690; 83735; 85025; 85610; 86704; 86706; 86709; 86780; 86803; 87340; 87389; 93005; 93975; 99285; S9485

== ENCOUNTER 2023-04-14 09:22 | Emergency (ER) | payer OTHER, SELFPAY ==
--- NOTE | 2023-04-14 09:36 | ED_ITS ---
HPI - Overdose General Chief Complaint: Overdose Stated Complaint: overdose Time Seen by Provider: 04/14/23 09:23 Source: patient and EMS Mode of arrival: EMS Limitations: no limitations History of Present Illness HPI Narrative: 32-year-old male with previous psychiatric history, substance abuse presents after an accidental overdose. Patient reportedly use cocaine and became unresponsive. Brother found him and administer Narcan to which he became responsive. Since then, patient is has been appropriately responsive. Complaining of chills. He denies any suicidal or homicidal ideation. He does admit to having auditory and visual hallucinations. He is not sure with the voices are saying. He describes the symptoms as severe. There is no clear relieving or exacerbating features. He reports being on medications and is taking them. He reports intermittent drug use and alcohol use. He denies dependency. Related Data Home Medications Medication Instructions Recorded Confirmed multivitamin 1 tab PO DAILY 02/14/23 04/14/23 buprenorphine 8 mg-naloxone 2 mg 10 mg sublingual TID 04/14/23 04/14/23 sublingual film (Suboxone) Previous Rx's Medication Instructions Recorded fluoxetine 10 mg capsule 10 mg PO DAILY 30 days #30 caps 02/16/23 nicotine (polacrilex) 2 mg gum 4 mg buccal Q2H PRN Nicotine 02/16/23 Cravings 30 days #100 ea quetiapine 200 mg tablet 200 mg PO BEDTIME 30 days #30 tabs 02/16/23 albuterol sulfate 90 mcg/actuation 1 puff PO QID PRN for wheezing #18 03/30/23 aerosol inhaler (Ventolin HFA) ea clonidine HCl 0.1 mg tablet 0.1 mg PO BID PRN anxiety 30 days 04/02/23 #60 tabs hydroxyzine HCl 50 mg tablet 50 mg PO BID PRN Anxiety 30 days 04/02/23 #60 tabs Allergies Allergy/AdvReac Type Severity Reaction Status Date / Time No Known Allergies Allergy Verified 02/09/22 08:45 [facility] Past Medical History Medical History ADHD (attention deficit hyperactivity disorder) Depression Patient denies medical problems Post traumatic stress disorder (PTSD) Substance abuse Surgical History No pertinent past surgical history Family History Family History Mother No problems noted. Father No problems noted. Social History Social History Household Members: Family Household Members Other:: Mother Housing: Apartment Do you presently have visiting nurse or other home services: No Alcohol intake: current Alcohol intake frequency: a few times a week Alcohol type: beer Patient Tobacco Use Status: Current everyday Tobacco user Tobacco use type: Cigarette Cigarette Packs Per Day: 1.5 Cigarettes Per Day: 30.0 Years Smoked: 10 Smoked in Last 30 Days: Yes e-Cigarette/Vaping Use: Never Used Second Hand Smoke Exposure: Yes Use of substances other than those prescribed or required for medical reasons: Yes Substance Use Type: Crack/Cocaine and Marijuana Last Used Substance: Just Prior to Admission Advance Directives: No Advance Directives Information Provided: Yes service: No Current occupational status: unemployed Sexual orientation: Straight/Heterosexual Cognitive needs: No Hearing needs: No Vision needs: No Physical Exam Vital Signs: Vital Signs: Last Vital Signs Temp 98.2 F 04/14/23 09:41 Pulse 61 04/14/23 09:41 Resp 13 04/14/23 09:41 BP 124/77 04/14/23 09:41 Pulse Ox 96 04/14/23 09:41 O2 Del Method Room Air 04/14/23 09:41 BMI result Body Mass Index 19.7 GEN: Well developed, mild acute distress, alert, oriented HEENT: Normocephalic, atraumatic, normal external ears, nose appears normal, no oropharyngeal edema or exudates Eyes: Normal to appearance Neck: Supple, no lymphadenopathy Respiratory: Talks in complete sentences, no respiratory distress, clear to auscultation bilaterally Cardiovascular: Regular rate and rhythm, no murmurs rubs or gallops Abdomen: Soft, nontender, nondistended, no guarding, no rebound Back: No CVA tenderness Extremities: No clubbing cyanosis or edema Neurologic: No focal neurologic deficits, cranial nerves 2-12 intact, strength is 5/5 bilaterally Skin: No rash Course Course Course Narrative: Patient presents with acute accidental overdose. Denies suicidal or homicidal ideation. He is chilled but no obvious fevers. No other complaints. Patient does report visual and auditory hallucinations. Will observe patient given overdose with responsiveness to Narcan. Will medically clear patient pending psychiatric evaluation Reevaluation(s) Reevaluation #1: Patient has a respite bed search at this time patient will be signed out to my colleague Dr. Capps. Time: 16:15 Medications Administered Discontinued Medications Generic Name Dose Route Start Last Admin Trade Name Paula PRN Reason Stop Dose Admin Acetaminophen 975 mg 04/14/23 12:33 04/14/23 12:39 Acetaminophen 325 Mg Tablet PO 04/14/23 12:34 975 mg ONCE ONE Administration Hydroxyzine HCl 50 mg 04/14/23 14:25 04/14/23 14:39 Hydroxyzine Hcl 50 Mg Tablet PO 04/14/23 14:26 50 mg ONCE ONE Administration Medical Decision Making Medical Decision Making [facility] Narrative: Patient presents with accidental overdose. Denies suicidal homicidal ideation. He does admit to auditory and visual hallucinations. Differential diagnosis includes accidental overdose, electrolyte abnormality, anemia. Will check laboratory analysis. Will continue to monitor for medical clearance. Additionally, patient reports hallucinations which differential diagnosis could include schizophrenia, schizoaffective disorder, substance induced psychosis Differential Diagnosis Differential Diagnoses: The differential diagnosis associated with the presentation includes (See above) Consult Healthcare Provider Management of the patient was discussed with: Behavioral Health Provider Lab Data [facility] Lab Attestation statement: I reviewed the patient's lab results. 04/14/23 10:35 04/14/23 10:35 Labs: Lab Results 04/14/23 04/14/23 04/14/23 Range/Units 10:35 10:35 10:35 WBC 8.3 (4.8-10.8) X10*3/uL RBC 4.73 (4.60-5.80) X10*6/uL Hgb 13.4 L (14.0-18.0) g/dl Hct 39.7 L (42.0-52.0) % MCV 83.9 (80.0-98.0) fL MCH 28.3 (27.0-33.0) pg MCHC 33.8 (31.0-36.0) g/dl RDW 13.5 (11.0-16.0) % Plt Count 235 (160-400) X10*3/uL MPV 9.6 (9.4-12.4) fL Immature Gran % (Auto) 0.2 (0.0-0.4) % Neut % (Auto) 81.8 H (45-73) % Lymph % (Auto) 11.9 L (20-40) % [place] % (Auto) 4.1 (2-11) % Eos % (Auto) 1.5 (0-4) % Baso % (Auto) 0.5 (0-2) % Lymph # (Auto) 1.0 L (1.2-4.9) X10*3/uL [place] # (Auto) 0.3 (0.1-1.2) X10*3/uL Eos # (Auto) 0.1 (0.0-0.4) X10*3/uL Baso # (Auto) 0.0 (0.0-0.2) X10*3/uL Abs Immat Gran (auto) 0.02 (0.00-0.03) X10*3/uL Absolute Neuts (auto) 6.8 (2.0-8.3) x10*3/uL Absolute Nucleated RBC 0.000 (0.0-0.012) X10*3/uL Nucleated RBC % (auto) 0.0 (0.0-0.2) /100WBC Sodium 141 (135-145) mmol/L Potassium 4.2 (3.3-5.1) mmol/L Chloride 108 (96-108) mmol/L Carbon Dioxide 21 L (22-29) mmol/L Anion Gap 16 (12-20) BUN 14 (9-16) mg/dL Creatinine 0.76 (0.5-1.4) mg/dL Estim Creat Clear Calc 126.7 Estimated GFR > 60 Random Glucose 93 (60-115) mg/dL Calcium 9.6 (8.4-10.2) mg/dL Total Bilirubin 1.0 (0.0-1.0) mg/dL AST 19 (5-37) U/L ALT 19 (0-40) U/L Alkaline Phosphatase 48 (39-117) U/L Total Protein 7.2 (6.5-8.0) g/dL Albumin 4.4 (3.5-5.0) g/dL Urine Color Urine Appearance Urine pH (5.0-9.0) Ur Specific [place] (1.005-1.025) Urine Protein (Neg-Trace) mg/dL Urine Glucose (UA) (Negative) mg/dL Urine Ketones (Negative) mg/dL Urine Blood (Negative) Urine Nitrite (Negative) Ur Leukocyte Esterase (Negative) Urine Opiates Screen (Not Detect) Urine Fentanyl Screen (Not Detect) Ur Barbiturates Screen (Not Detect) Ur Phencyclidine Scrn (Not Detect) Ur Amphetamines Screen (Not Detect) U Benzodiazepines Scrn (Not Detect) Urine Cocaine Screen (Not Detect) U Marijuana (THC) Screen (Not Detect) Ethyl Alcohol < 10 mg/dL COVID-19 (ANASTACIO) Negative (Negative) COVID-19 Clin Com See Note 04/14/23 04/14/23 Range/Units 14:00 14:00 WBC (4.8-10.8) X10*3/uL RBC (4.60-5.80) X10*6/uL Hgb (14.0-18.0) g/dl Hct (42.0-52.0) % MCV (80.0-98.0) fL MCH (27.0-33.0) pg MCHC (31.0-36.0) g/dl RDW (11.0-16.0) % Plt Count (160-400) X10*3/uL MPV (9.4-12.4) fL Immature Gran % (Auto) (0.0-0.4) % Neut % (Auto) (45-73) % Lymph % (Auto) (20-40) % [place] % (Auto) (2-11) % Eos % (Auto) (0-4) % Baso % (Auto) (0-2) % Lymph # (Auto) (1.2-4.9) X10*3/uL [place] # (Auto) (0.1-1.2) X10*3/uL Eos # (Auto) (0.0-0.4) X10*3/uL Baso # (Auto) (0.0-0.2) X10*3/uL Abs Immat Gran (auto) (0.00-0.03) X10*3/uL Absolute Neuts (auto) (2.0-8.3) x10*3/uL Absolute Nucleated RBC (0.0-0.012) X10*3/uL Nucleated RBC % (auto) (0.0-0.2) /100WBC Sodium (135-145) mmol/L Potassium (3.3-5.1) mmol/L Chloride (96-108) mmol/L Carbon Dioxide (22-29) mmol/L Anion Gap (12-20) BUN (9-16) mg/dL Creatinine (0.5-1.4) mg/dL Estim Creat Clear Calc Estimated GFR Random Glucose (60-115) mg/dL Calcium (8.4-10.2) mg/dL Total Bilirubin (0.0-1.0) mg/dL AST (5-37) U/L ALT (0-40) U/L Alkaline Phosphatase (39-117) U/L Total Protein (6.5-8.0) g/dL Albumin (3.5-5.0) g/dL Urine Color Yellow Urine Appearance Turbid Urine pH 7.5 (5.0-9.0) Ur Specific [place] 1.020 (1.005-1.025) Urine Protein Negative (Neg-Trace) mg/dL Urine Glucose (UA) Negative (Negative) mg/dL Urine Ketones 40 (Negative) mg/dL Urine Blood Negative (Negative) Urine Nitrite Negative (Negative) Ur Leukocyte Esterase Negative (Negative) Urine Opiates Screen Not Detected (Not Detect) Urine Fentanyl Screen POSITIVE H (Not Detect) Ur Barbiturates Screen Not Detected (Not Detect) Ur Phencyclidine Scrn Not Detected (Not Detect) Ur Amphetamines Screen Not Detected (Not Detect) U Benzodiazepines Scrn Not Detected (Not Detect) Urine Cocaine Screen POSITIVE H (Not Detect) U Marijuana (THC) Screen POSITIVE H (Not Detect) Ethyl Alcohol mg/dL COVID-19 (ANASTACIO) (Negative) COVID-19 Clin Com Independent Interpretation I performed an independent interpretation of an: EKG (Normal sinus rhythm heart rate 6 C7 known, normal intervals, no acute ST elevations or depressions) Prescription Management I considered prescription management with: Other (psychiastric medications) Discharge Plan Discharge Clinical Impression: Substance abuse, Hallucinations Patient Disposition: Still a Patient Prescriptions: No Action albuterol sulfate [Ventolin HFA] 90 mcg/actuation HFA aerosol inhaler 1 puff PO QID PRN (Reason: for wheezing) Qty: 18 0RF clonidine HCl 0.1 mg tablet 0.1 mg PO BID PRN (Reason: anxiety) 30 Days Qty: 60 0RF Protocol: Hold for SBP< HOLD for SBP < : 90 hydroxyzine HCl 50 mg tablet 50 mg PO BID PRN (Reason: Anxiety) 30 Days Qty: 60 0RF buprenorphine-naloxone [Suboxone] 8-2 mg film 10 mg sublingual TID multivitamin Tablet 1 tab PO DAILY nicotine (polacrilex) 2 mg Gum 4 mg buccal Q2H PRN (Reason: Nicotine Cravings) 30 Days Qty: 100 0RF quetiapine 200 mg tablet 200 mg PO BEDTIME 30 Days Qty: 30 0RF fluoxetine 10 mg capsule 10 mg PO DAILY 30 Days Qty: 30 0RF
--- NOTE | 2023-04-14 09:39 | ECG_ITS ---
Test Reason : overdose Blood Pressure : / mmHG Vent. Rate : 067 BPM Atrial Rate : 067 BPM P-R Int : 132 ms QRS Dur : 090 ms QT Int : 430 ms P-R-T Axes : 005 069 054 degrees QTc Int : 454 ms Normal sinus rhythm Normal ECG When compared with ECG of 14-FEB-2023 16:01, QT has lengthened Referred By: Amarjit Al Electronically Signed By:JACLYN FLOR
[2023-04-14 09:41] VITALS: BP 124/77; BP 142/86; PULSE 61; PULSE 74; RESP 13; TEMP 36.8; O2SAT 100; O2SAT 96; BMI 19.7
[2023-04-14 10:41] LABS: MANUAL DIFF FLAG NO
[2023-04-14 10:56] LABS: Alanine Aminotransferase 19 U/L (0-40); Albumin Level 4.4 g/dL (3.5-5.0); Alkaline Phosphatase 48 U/L (39-117); Anion Gap 16 (12-20); Aspartate Amino Transferase 19 U/L (5-37); Blood Urea Nitrogen 14 mg/dL (9-16); Calcium 9.6 mg/dL (8.4-10.2); Carbon Dioxide 21 mmol/L (22-29); Chloride 108 mmol/L (96-108); Creatinine Clr Calc Pharmacy 126.7; Estimated Glomerular Filt Rate > 60; Ethanol < 10 mg/dL; Glucose Random 93 mg/dL (60-115); Potassium 4.2 mmol/L (3.3-5.1); Sodium 141 mmol/L (135-145); Total Protein 7.2 g/dL (6.5-8.0)
[2023-04-14 11:01] LABS: COVID-19 Test Negative (Negative); IDNOW Serial# 08D9AD1C
[2023-04-14 11:27] LABS: Basophils Percent Auto 0.5 % (0-2); Eosinophils Absolute Auto 0.1 X10*3/uL (0.0-0.4); Eosinophils Percent Auto 1.5 % (0-4); Hematocrit 39.7 % (42.0-52.0); Hemoglobin 13.4 g/dl (14.0-18.0); Imm Gran Abs Auto 0.02 X10*3/uL (0.00-0.03); Imm Gran Pct Auto 0.2 % (0.0-0.4); Lymphocytes Percent Auto 11.9 % (20-40); Mean Corpuscular HGB Conc 33.8 g/dl (31.0-36.0); Mean Corpuscular Hemoglobin 28.3 pg (27.0-33.0); Mean Corpuscular Volume 83.9 fL (80.0-98.0); Mean Platelet Volume 9.6 fL (9.4-12.4); Monocytes Absolute Auto 0.3 X10*3/uL (0.1-1.2); Monocytes Percent Auto 4.1 % (2-11); Neutrophils Absolute Auto 6.8 x10*3/uL (2.0-8.3); Neutrophils Percent Auto 81.8 % (45-73); Platelet Count 235 X10*3/uL (160-400); Red Blood Count 4.73 X10*6/uL (4.60-5.80); Red Cell Distribution Width 13.5 % (11.0-16.0); White Blood Count 8.3 X10*3/uL (4.8-10.8)
--- NOTE | 2023-04-14 11:56 | PHA.MEDREC ---
Pharmacy Consult ? Medication Reconciliation Pharmacy has completed the medication reconciliation.
[2023-04-14] MEDS: Acetaminophen 325 MG TABLET 975 MG PO (12:39)
--- NOTE | 2023-04-14 12:40 | PC.NURSE ---
Patient stating that he wants to jump head first off the stretcher to knock myself out. Patient wants to go upstairs because that has helped him the past.
[2023-04-14 14:07] LABS: Appearance Urine Turbid; Color Urine Yellow; Glucose Urine UA Negative (Negative); Leukocyte Esterase Urine Negative (Negative); Nitrite Urine Negative (Negative); PH 7.5 (5.0-9.0); Urine Blood Negative (Negative); Urine Ketones 40 mg/dL (Negative); Urine Protein Negative (Neg-Trace)
--- NOTE | 2023-04-14 14:13 | PC.NURSE ---
Pt anxious. Has not been eating. Able to eat lunch. Reports he has been using 1 bag of Heroin a day. Today he used Cocaine and a friend administered Narcan. notified
--- NOTE | 2023-04-14 14:20 | PC.NURSE ---
Adalberto, Pt Brother, called left number [phone]
[2023-04-14 14:21] LABS: Amphetamine Screen Urine Not Detected (Not Detect); Barbiturates, Urine Not Detected (Not Detect); Benzodiazepines Screen Urine Not Detected (Not Detect); Cannabinoid Screen Urine POSITIVE (Not Detect); Cocaine Screen Urine POSITIVE (Not Detect); Fentanyl, urine POSITIVE (Not Detect); Opiate Screen Urine Not Detected (Not Detect); Phencyclidine Screen Urine Not Detected (Not Detect)
[2023-04-14] MEDS: hydrOXYzine HCL 50 MG TABLET PO (14:39)
--- NOTE | 2023-04-14 15:27 | MHC.EDTECH ---
spoke with security, pt's belongings are in decon
[2023-04-14 21:25] VITALS: BP 123/60; PULSE 49; RESP 16; TEMP 37.2; O2SAT 97
[2023-04-14 21:29] VITALS: PULSE 58
[2023-04-15 06:18] VITALS: BP 139/82; PULSE 52; RESP 17; TEMP 37.5; O2SAT 99
--- NOTE | 2023-04-15 06:34 | PC.NURSE ---
Patient slept through the night, no distress observed/reported, med rec completed/pending provider's approval, behavior non concerning, disposition per care team is voluntary Respite bed search, VSS, will continue to monitor
--- NOTE | 2023-04-15 07:07 | PC.NURSE ---
patient appears to remain asleep respirations are even and unlabored appears in no distress
[2023-04-15] MEDS: hydrOXYzine HCL 50 MG TABLET PO (08:23)
--- NOTE | 2023-04-15 09:43 | HO.SUDE ---
Please see CARE Team assessment by Cristobal Rouse on 04/14/23.
[2023-04-15 10:08] VITALS: BP 133/71; PULSE 59; RESP 16; TEMP 36.4; O2SAT 99
--- NOTE | 2023-04-15 10:36 | PC.NURSE ---
MD Capps was notified of pulse of 59 and bp 133/71 stated ok to give 2 mg ativan.
--- NOTE | 2023-04-15 10:37 | MHC.RECOVRN ---
Met with pt in [facility] to discuss substance use and desire for ATS. Pt laying in bed, awake, alert, anxious. Pt reports drinking alcohol, 750 mL Fauzia, daily x 2 weeks. Pt reports 7 grams cocaine, IN, over the past 2 days. Pt reports heroin use, 1-10 bags daily, IN. Pt currently reporting withdrawal symptoms including tremors and diaphoresis. Pt requesting medication to alleviate withdrawal symptoms. In regards to ATS, pt reports he would like to go to [facility] and his mother will bring him. Pt requesting to dc and be transported by mother. RN, provider, and CARE Team aware.
[2023-04-15] MEDS: LORazepam 1 MG TABLET 2 MG PO (10:39)
== END 2023-04-15 10:58 ==
PROVIDERS: Emergency Provider Emergency Medicine; PCP Internal Medicine
DX: F19.151 Other psychoactive substance abuse with psychoactive substance-induced psychotic disorder with hallucinations (principal); F11.20 Opioid dependence, uncomplicated; F17.210 Nicotine dependence, cigarettes, uncomplicated; Z20.822 Contact with and (suspected) exposure to COVID-19
CPT/HCPCS: 36415; 80053; 80307; 81003; 85025; 87635; 93005; 99285; S9485

== ENCOUNTER 2023-06-24 10:37 | Emergency (ER) | payer OTHER, SELFPAY ==
[2023-06-24 10:44] VITALS: BP 106/64; BP 126/70; PULSE 88; TEMP 36.8; O2SAT 94; BMI 20.8
[2023-06-24 11:48] LABS: Ethanol < 10 mg/dL
[2023-06-24 11:51] LABS: Amphetamine Screen Urine Not Detected (Not Detect); Barbiturates, Urine Not Detected (Not Detect); Benzodiazepines Screen Urine Not Detected (Not Detect); Cannabinoid Screen Urine POSITIVE (Not Detect); Cocaine Screen Urine POSITIVE (Not Detect); Fentanyl, urine POSITIVE (Not Detect); Opiate Screen Urine POSITIVE (Not Detect); Phencyclidine Screen Urine Not Detected (Not Detect)
--- NOTE | 2023-06-24 11:53 | ED.OVERDOSE ---
HPI - Overdose General Chief Complaint: Overdose Stated Complaint: poss substance use per EMS Time Seen by Provider: 06/24/23 10:41 Source: patient and EMS Mode of arrival: EMS Limitations: no limitations History of Present Illness HPI Narrative: 32-year-old male with history of polysubstance abuse presents with an accidental overdose. Denies suicidal homicidal ideation. He admits to using fentanyl last night. Patient was found to be somnolent. He parents are aware that he has a longstanding history of opioid abuse. No Narcan was provided. Patient was doing okay without any significant complaints however upon arrival, patient started describes some chest tightness and some shortness of breath. Patient has history of asthma. He noted some wheezing and coughing. Symptoms are similar to previous asthma related events. Related Data Home Medications Medication Instructions Recorded Confirmed multivitamin 1 tab PO DAILY 02/14/23 04/14/23 buprenorphine 8 mg-naloxone 2 mg 10 mg sublingual TID 04/14/23 04/14/23 sublingual film (Suboxone) Previous Rx's Medication Instructions Recorded fluoxetine 10 mg capsule 10 mg PO DAILY 30 days #30 caps 02/16/23 nicotine (polacrilex) 2 mg gum 4 mg buccal Q2H PRN Nicotine 02/16/23 Cravings 30 days #100 ea quetiapine 200 mg tablet 200 mg PO BEDTIME 30 days #30 tabs 02/16/23 albuterol sulfate 90 mcg/actuation 1 puff PO QID PRN for wheezing #18 03/30/23 aerosol inhaler (Ventolin HFA) ea clonidine HCl 0.1 mg tablet 0.1 mg PO BID PRN anxiety 30 days 04/02/23 #60 tabs hydroxyzine HCl 50 mg tablet 50 mg PO BID PRN Anxiety 30 days 04/02/23 #60 tabs Allergies Allergy/AdvReac Type Severity Reaction Status Date / Time No Known Allergies Allergy Verified 02/09/22 08:45 Review of Systems Review of Systems: CONSTITUTIONAL: Denies weight loss, fever and chills. HEENT: Denies changes in vision and hearing. RESPIRATORY: Denies SOB and cough. CV: + palpitations no CP. GI: Denies abdominal pain, nausea, vomiting and diarrhea. : Denies dysuria and urinary frequency. MSK: Denies myalgia and joint pain. SKIN: Denies rash and pruritus. NEUROLOGICAL: Denies headache and syncope. PSYCHIATRIC: Denies recent changes in mood. Denies anxiety and depression. All other ROS are negative unless in HPI PMFSH Past Medical History Medical History ADHD (attention deficit hyperactivity disorder) Depression Patient denies medical problems Post traumatic stress disorder (PTSD) Substance abuse Surgical History No pertinent past surgical history Family History Family History Mother No problems noted. Father No problems noted. Social History Social History Household Members: Family Household Members Other:: Mother Housing: Apartment Do you presently have visiting nurse or other home services: No Alcohol intake: current Alcohol intake frequency: a few times a week Alcohol type: beer Patient Tobacco Use Status: Current everyday Tobacco user Tobacco use type: Cigarette Cigarette Packs Per Day: 1.5 Cigarettes Per Day: 30.0 Years Smoked: 10 Smoked in Last 30 Days: Yes e-Cigarette/Vaping Use: Never Used Second Hand Smoke Exposure: Yes Use of substances other than those prescribed or required for medical reasons: Yes Substance Use Type: Crack/Cocaine, Heroin, Inhalants, Marijuana and Opiates Last Used Substance: Hours (ago) Advance Directives: No Advance Directives Information Provided: No service: No Current occupational status: unemployed Sexual orientation: Straight/Heterosexual Cognitive needs: No Hearing needs: No Vision needs: No Physical Exam Vital Signs: Vital Signs: Last Vital Signs Temp 98.3 F 06/24/23 10:44 Pulse 62 06/24/23 12:06 Resp 18 06/24/23 12:06 BP 106/64 06/24/23 10:44 BMI result Body Mass Index 20.8 GEN: Well developed, no acute distress, alert, oriented HEENT: Normocephalic, atraumatic, normal external ears, nose appears normal, no oropharyngeal edema or exudates Eyes: Normal to appearance Neck: Supple, no lymphadenopathy Respiratory: Talks in complete sentences, no respiratory distress, clear to auscultation bilaterally Cardiovascular: Regular rate and rhythm, no murmurs rubs or gallops Abdomen: Soft, nontender, nondistended, no guarding, no rebound Back: No CVA tenderness Extremities: No clubbing cyanosis or edema Neurologic: No focal neurologic deficits, cranial nerves 2-12 intact, strength is 5/5 bilaterally Skin: No rash Course Reevaluation(s) Reevaluation #1: Patient continues to complain of some shortness of breath. Has prolonged expiration but no wheezes. Will order albuterol nebulizers. Reevaluation #2: Patient is alert oriented. Has no suicidal homicidal ideation. Wishes to be discharged. He is not interested in detox. Blood provided with outpatient resources. Patient will be given Narcan to go. Time: 13:57 Medications Administered Discontinued Medications Generic Name Dose Route Start Last Admin Trade Name Freq PRN Reason Stop Dose Admin Albuterol Sulfate 5 mg 06/24/23 11:39 06/24/23 12:04 Albuterol Sulfate (0.083%) 2.5 Mg/3 Ml Vial.Neb INHALE 06/24/23 11:40 5 mg ONCE ONE Administration Medical Decision Making Medical Decision Making [facility] Narrative: 32-year-old male with history polysubstance abuse presents with an accidental overdose. Denies suicidal homicidal ideation. Differential diagnosis includes mood disorder, substance abuse, substance use disorder, personality disorder, depression, anxiety. Patient is interested in detox. Will order care team. Will evaluate his toxicology screen. Will obtain laboratory analysis. Differential Diagnosis Differential Diagnoses: The differential diagnosis associated with the presentation includes ( See above) Admission/Observation Consideration of admission/observation: Escalation of care including admission/observation considered Lab Data [facility] Lab Attestation statement: I reviewed the patient's lab results. Labs: Lab Results 06/24/23 06/24/23 Range/Units 11:28 11:28 Urine Opiates Screen POSITIVE H (Not Detect) Urine Fentanyl Screen POSITIVE H (Not Detect) Ur Barbiturates Screen Not Detected (Not Detect) Ur Phencyclidine Scrn Not Detected (Not Detect) Ur Amphetamines Screen Not Detected (Not Detect) U Benzodiazepines Scrn Not Detected (Not Detect) Urine Cocaine Screen POSITIVE H (Not Detect) U Marijuana (THC) Screen POSITIVE H (Not Detect) Ethyl Alcohol < 10 mg/dL Radiology Impression Discussion of test interpretation with radiology: I discussed test interpretation with the radiologist Independent Historian Clinical information obtained from an independent historian. History obtained from or confirmed by: EMS Prescription Management I considered prescription management with: Antibiotic Discharge Plan Discharge Clinical Impression: Opioid use disorder, Polysubstance abuse Patient Disposition: Home, Self-Care Instructions: Opioid Use Disorder (ED), Polysubstance Abuse (ED), Naloxone (Into the nose) Prescriptions: No Action albuterol sulfate [Ventolin HFA] 90 mcg/actuation HFA aerosol inhaler 1 puff PO QID PRN (Reason: for wheezing) Qty: 18 0RF clonidine HCl 0.1 mg tablet 0.1 mg PO BID PRN (Reason: anxiety) 30 Days Qty: 60 0RF Protocol: Hold for SBP< HOLD for SBP < : 90 hydroxyzine HCl 50 mg tablet 50 mg PO BID PRN (Reason: Anxiety) 30 Days Qty: 60 0RF buprenorphine-naloxone [Suboxone] 8-2 mg film 10 mg sublingual TID multivitamin Tablet 1 tab PO DAILY nicotine (polacrilex) 2 mg Gum 4 mg buccal Q2H PRN (Reason: Nicotine Cravings) 30 Days Qty: 100 0RF quetiapine 200 mg tablet 200 mg PO BEDTIME 30 Days Qty: 30 0RF fluoxetine 10 mg capsule 10 mg PO DAILY 30 Days Qty: 30 0RF Referrals: [facility] [place] [facility] [Provider Group]
[2023-06-24] MEDS: Albuterol Sulfate (0.083%) 2.5 MG/3 ML VIAL.NEB 5 MG INHALE (12:04)
[2023-06-24 12:06] VITALS: PULSE 62; RESP 18; O2SAT 94
== END 2023-06-24 14:12 | disposition home or self-care (01) ==
PROVIDERS: Emergency Provider Emergency Medicine; PCP Internal Medicine
DX: F19.10 Other psychoactive substance abuse, uncomplicated (principal); F11.20 Opioid dependence, uncomplicated; R06.02 Shortness of breath; F90.9 Attention-deficit hyperactivity disorder, unspecified type; F43.10 Post-traumatic stress disorder, unspecified; F17.210 Nicotine dependence, cigarettes, uncomplicated; Z79.899 Other long term (current) drug therapy
CPT/HCPCS: 36415; 80307; 94640; 99284; 99285

== ENCOUNTER 2023-10-09 15:25 | Outpatient (AMB) | payer OTHER, SELFPAY ==
--- NOTE | 2023-10-09 15:27 | A.OFFPC_ITS ---
Vital Signs 10/09/23 15:28 Height 5 ft 11 in Weight 216 lb BMI 30.1 BP 122/80 Blood Pressure Location Lt brachial Position Sitting Intake Visit Reasons: PE, transfer of care [place] Intake Note: Patient here for a physical exam Regional Office Coordinator Required: No Accompanied by: Self / Same As Patient Allergies No Known Allergies Allergy (Verified 10/09/23 15:31) Medication List - Last Reconciled 10/09/23 by Alana Ortega MD albuterol sulfate 90 mcg/actuation (Ventolin HFA) 1 puff PO QID PRN buprenorphine-naloxone 8-2 mg (Suboxone) 10 mg sublingual TID clonidine HCl 0.1 mg See Protocol PO BID PRN 30 days fluoxetine 10 mg PO DAILY 30 days hydroxyzine HCl 50 mg PO BID PRN 30 days lidocaine 5% 1 patch topical DAILY multivitamin 1 tab PO DAILY nicotine (polacrilex) 4 mg buccal Q2H PRN 30 days quetiapine 200 mg PO BEDTIME 30 days Tobacco use date assessed: 10/09/23 Dental Screening Dental Screen Date: 10/09/23 Did you have a dental visit in the last 12 months?: Yes Did you have a dental problem in the last 6 months where you did not have access to dental care?: No Was dental information given to patient?: Patient has dentist HPI HPI Comments History of Present Illness Details This is 33-year-old male with polysubstance abuse and mild major dep ression that comes for his physical exam. He has been clean for the past 3 months and he is in a rehab program in a home. Mild major depression that is present and on fluoxetine. No chest pain or shortness of breath. [facility] Medical History (Updated 10/09/23 @ 16:03 by Alana Ortega MD) Depression ADHD (attention deficit hyperactivity disorder) Post traumatic stress disorder (PTSD) Substance abuse Patient denies medical problems Surgical History No pertinent past surgical history Family History Mother No problems noted. Father No problems noted. Social History (Updated 10/09/23 @ 15:52 by Alana Ortega MD) Household Members: Family Household Members Other:: Mother Housing: Apartment Do you presently have visiting nurse or other home services: No Alcohol intake: former Patient Tobacco Use Status: Current everyday Tobacco user Tobacco use type: Cigarette Cigarettes Per Day: 1 Years Smoked: 10 e-Cigarette/Vaping Use: Never Used Second Hand Smoke Exposure: Yes Substance Use Type: Crack/Cocaine, Heroin, Inhalants, Marijuana and Opiates service: No Current occupational status: unemployed Sexual orientation: Straight/Heterosexual Cognitive needs: No Hearing needs: No Vision needs: Yes Questionnaire PHQ-9 Over the last 2 weeks, how often have you been bothered by any of the following problems? 1. Little interest or pleasure in doing things: not at all 2. Feeling down, depressed, or hopeless: several days 3. Trouble falling or staying asleep, or sleeping too much: several days 4. Feeling tired or having little energy: several days 5. Poor appetite or overeating: more than half the days 6. Feeling bad about yourself - or that you are a failure or have let yourself or your family down: not at all 7. Trouble concentrating on things, such as reading the newspaper or watching television: not at all 8. Moving or speaking so slowly that other people could have noticed. Or the opposite - being so fidgety or restless that you have been moving around a lot more than usual: not at all 9. Thoughts that you would be better off or of hurting yourself in some way: not at all Total score: 5 Depression Screening Interpretation: Positive Depression Screening Follow-up: Existing condition Depression Screening Done: Yes 93289 - PHQ-9 Billing: Yes Source: Developed by Drs. Gerard Mtz, Keily Encinas, Mahendra Tim and colleagues, with an educational britni from [email or web address]. Thrive Questionnaire Date Thrive assessed: 02/09/22 ELISHA-7 AMB Questionnaire ELISHA-7 Date ELISHA - 7 assessed: 10/09/23 Feeling nervous, anxious, or on edge: 2 = More than half the days Not being able to stop or control worryin = Not at all Worrying too much about different things: 1 = Several days Trouble relaxin = Several days Being so restless that it is hard to sit still: 0 = Not at all Becoming easily annoyed or irritable: 0 = Not at all Feeling afraid as if something awful might happen: 0 = Not at all Total ELISHA-7 score (0-4 normal; 5-9 mild; 10-14 moderate; 15-21 severe): 4 Source: Developed by Drs. Gerard Mtz, Keily Encinas, Mahendra Tim and colleagues, with an educational britni from [email or web address]. ELISHA-7 Assessment Billing ELISHA-7 Assessment Tool: ELISHA-7 Assessment 98134 Review of Systems Const All systems reviewed & are unremarkable except as noted in HPI and below Eyes Reports no additional complaints, Denies change in vision and Denies other visual disturbances Card Denies chest pain at rest, Denies chest pain with activity, Denies edema, Denies irregular heart rhythm, Denies claudication, Denies dyspnea, Denies dyspnea on exertion, Denies orthopnea, Denies paroxysmal nocturnal dyspnea and Denies slow heart rate Resp Denies cough, Denies dyspnea and Denies dyspnea on exertion GI Denies abdominal pain, Denies change in bowel habits, Denies excessive flatus, Denies nausea and Denies vomiting Denies urinary hesitancy, Denies urinary incontinence and Denies urinary urgency Musc Denies abnormal gait, Denies atrophy, Denies deformity and Denies limited range of motion Skin/Breast Denies bleeding lesions, Denies changing lesions and Denies rash Neuro Denies abnormal gait, Denies behavioral changes, Denies confusion and Denies lack of coordination Psych Denies behavioral changes and Denies confusion Physical exam (Primary Care) Vital Signs: Last Vital Signs BP 122/80 10/09/23 15:28 BMI result Body Mass Index 30.1 Tobacco/Smoking Status: Tobacco use Status Tobacco use date assessed 10/09/23 10/09/23 15:36 Patient Tobacco Use Status Current everyday Tobacco 10/09/23 15:36 Tobacco use type Cigarette 10/09/23 15:36 e-Cigarette/Vaping Use Never Used 10/09/23 15:36 PHQ-9: PHQ-9 Score PHQ-9: Total score 5 10/09/23 15:36 Depression Screening Interpretation: Positive Depression Screening Follow-up: Existing condition Thrive Assessment: Date of Thrive Assessment Date Thrive assessed 02/09/22 10/09/23 15:36 Const General: No confusion Orientation/consciousness: patient oriented x3 and No confusion HENMT Head: Yes normal to inspection, Yes normocephalic and Yes atraumatic Ears: external ears normal Eyes General: appearance normal, both eyes and all related structures Eyelids: Yes eyelids normal Conjunctivae: conjunctivae normal Neck Neck: Yes normal visual inspection and Yes supple Resp Effort & Inspection: normal respiratory effort Auscultation: clear to auscultation bilaterally Cardio Jugular venous distension: no JVD Rate: regular rate Rhythm: regular rhythm Heart sounds: S1 normal heart sound present and S2 normal heart sound present GI Inspection: Yes normal to inspection Palpation (GI): Soft to palpation and nontender Auscultation: normal bowel sounds Skin General skin exam: no rashes or lesions noted Neuro General: patient oriented x3, no focal motor deficits and No confusion Extrem General: Yes full ROM Psych Appearance: grossly normal Office Procedures Flu Questionnaire Does the patient have a severe egg allergy?: No Immunizations flu vacc [id number] 6mos up(PF) 60 mcg(15 mcgx4)/0.5 mL IM syringe Performing Provider: Alana Ortega MD [facility] [place] Documented (not given) by: KASSANDRA Paez on 10/09/23 15:37 Reason Not Given: Patient Refused Assessment and Plan Assessment & Plan (1) Physical exam: Comment: Needs dental and eye exam. Encouraged self-referral. TDAP today. COVID IZs X 2. Code(s): Z00.00 - Encounter for general adult medical examination without abnormal findings Plan: Repeat in a year. (2) Polysubstance use disorder: Code(s): F19.90 - Other psychoactive substance use, unspecified, uncomplicated Plan: Continue buprenorphine. (3) Mild major depression: Code(s): F32.0 - Major depressive disorder, single episode, mild Plan: Continue fluoxetine. Orders: Orders Influenza [id number] Immunization Today Z23 - Encounter for immunization Medications: Refilled quetiapine 200 mg PO BEDTIME 30 days 30 tabs 2RF nicotine (polacrilex) 4 mg buccal Q2H 30 days PRN 100 ea 0RF Nicotine Cravings clonidine HCl 0.1 mg See Protocol PO BID 30 days PRN 60 tabs 0RF anxiety hydroxyzine HCl 50 mg PO BID 30 days PRN 60 tabs 0RF Anxiety fluoxetine 10 mg PO DAILY 30 days 30 caps 0RF nicotine (polacrilex) 4 mg buccal Q2H 30 days PRN 100 ea 0RF Nicotine Cravings quetiapine 200 mg PO BEDTIME 30 days 30 tabs 2RF hydroxyzine HCl 50 mg PO BID 30 days PRN 60 tabs 0RF Anxiety fluoxetine 10 mg PO DAILY 30 days 30 caps 0RF clonidine HCl 0.1 mg See Protocol PO BID 30 days PRN 60 tabs 0RF anxiety Coding Level of Care Code Est Pt Prev Care 18-39y([id number]) Diagnoses Physical exam Z00.00 Polysubstance use disorder F19.90 Mild major depression F32.0 Additional Codes ELISHA-7 Assessment Billing - ELISHA-7 Assessment Tool: ELISHA-7 Assessment 98305 ([id number]) Time Spent (min) 31
[2023-10-09 15:28] VITALS: BP 122/80; BMI 30.1
== END 2023-10-09 16:03 | disposition home or self-care (01) ==
PROVIDERS: PCP Internal Medicine; Visit Provider Internal Medicine
DX: Z00.00 Encounter for general adult medical examination without abnormal findings (principal); F19.90 Other psychoactive substance use, unspecified, uncomplicated; F32.0 Major depressive disorder, single episode, mild
CPT/HCPCS: 99395

== ENCOUNTER 2024-10-21 05:38 | Inpatient (IN) | payer MEDICAID, SELFPAY ==
[2024-10-21] VITALS (14 sets, daily range): BP systolic 00–137; BP diastolic 00–77; PULSE 77–118; RESP 10–20; TEMP 36.7–37.1; O2SAT 76–98; BMI 25.8
--- NOTE | ~2024-10-21 | XR_ITS ---
EXAMINATION: XR CHEST CLINICAL INFORMATION: sob COMPARISON: October 18, 2022 TECHNIQUE: Frontal view of the chest was obtained. FINDINGS: No significant abnormality is noted involving the heart, lungs, mediastinum, bony thorax or soft tissues. XR/XR chest 1V IMPRESSION: Unremarkable examination. Electronically signed by: David Rome MD 10/21/2024 06:25 AM [facility]
--- NOTE | 2024-10-21 05:47 | ECG_ITS ---
Test Reason : DYSPNEA Blood Pressure : / mmHG Vent. Rate : 103 BPM Atrial Rate : 103 BPM P-R Int : 132 ms QRS Dur : 090 ms QT Int : 424 ms P-R-T Axes : 088 094 070 degrees QTc Int : 555 ms Sinus tachycardia Rightward axis Prolonged QT Abnormal ECG When compared with ECG of 14-APR-2023 10:04, Vent. rate has increased BY 36 BPM QT has lengthened Referred By: Renetta Elkins Electronically Signed By:Kofi Rosales
[2024-10-21] MEDS: methylPREDNISolone Sod Succ 125 MG/2 ML VIAL IVPUSH (05:50)
[2024-10-21] MEDS: Magnesium Sulfate/H2O 2 GM/50 ML PIGGYBACK IV (05:50)
--- NOTE | 2024-10-21 06:01 | ED.GENADULT ---
HPI - General Adult General Chief complaint: Dyspnea Stated complaint: diff breathing, ashtmatic Time Seen by Provider: 10/21/24 05:42 Source: patient Mode of arrival: ambulatory Limitations: no limitations History of Present Illness ED Provider: Dr. Renetta Elkins HPI narrative: Patient comes to the emergency room complaining of an asthma exacerbation. Patient states that for about a week he has been having intermittent exacerbations, ran of albuterol. At this time, temperature outside is 20 F, patient decided to ride his motorcycle to the emergency room. Patient came in complaining of severe shortness of breath, with an initial O2 sat of 76%. Patient unable to give much history at this time due to shortness of breath. Related Data Home Medications ?Medication ?Instructions ?Recorded ?Confirmed buprenorphine 8 mg-naloxone 2 mg 2 film sublingual ONCE 04/14/23 10/21/24 sublingual film (Suboxone) Previous Rx's ?Medication ?Instructions ?Recorded quetiapine 200 mg tablet 200 mg PO BEDTIME 30 days #30 tabs 10/09/23 hydroxyzine HCl 50 mg tablet 50 mg PO BID PRN Anxiety 30 days 11/18/23 #60 tabs albuterol sulfate 90 mcg/actuation 1 puff PO QID PRN for wheezing #18 12/10/23 aerosol inhaler (Ventolin HFA) ea fluoxetine 10 mg capsule 10 mg PO DAILY 30 days #30 caps 12/24/23 clonidine HCl 0.1 mg tablet 0.1 mg PO BID PRN anxiety 30 days 04/09/24 #60 tabs Allergies Allergy/AdvReac Type Severity Reaction Status Date / Time No Known Allergies Allergy Verified 10/21/24 05:48 Review of Systems Review of Systems: Constitutional : No Weight loss, No Fever, No Chills, No Night Sweats, No Fatigue, No Malaise ENT/Mouth : No Hearing loss, No Ear Pain, No Nasal Congestion, No Sinus Pain, No Hoarseness, No sore throat, No Rhinorrhea, No Swallowing Difficulty Eyes: No Eye Pain, No Swelling, No Redness, No Foreign Body, No Discharge, No Vision Changes Cardiovascular : No Chest Pain, No SOB, No Dyspnea on Exertion, No Orthopnea, No Edema, No Palpitations Respiratory : Complaining of cough, wheezing and shortness of breath Gastrointestinal : No Nausea, No Vomiting, No Diarrhea, No Constipation, No abdominal Pain, No Hematochezia, No Melena Genitourinary : no irregular bleeding, No Dysuria, No Urinary Frequency, No Hematuria, No Urinary Incontinence, No Urgency, No Flank Pain, No Urinary Flow Changes, No Hesitancy Musculoskeletal : No joint pain, No Myalgias, No Joint Swelling Skin : No Skin Lesions, No rash Neuro : No Weakness, No Numbness, No Paresthesias, No Loss of Consciousness, No Dizziness, No Headache Psych : No Anxiety/Panic, No Depression, No SI/HI/AH/VH, No Social Issues, Heme/Lymph: No Bruising, No Bleeding,No Lymphadenopathy Endocrine : No Polyuria, No Polydipsia, No Temperature Intolerance [facility] Past Medical History Medical History (Updated 10/21/24 @ 11:02 by Cielo Moseley PA-C) Asthma Depression ADHD (attention deficit hyperactivity disorder) Post traumatic stress disorder (PTSD) Substance abuse Patient denies medical problems Surgical History No pertinent past surgical history Family History Family History Mother No problems noted. Father No problems noted. Social History Social History (Updated 10/09/23 @ 15:52 by Alana Ortega MD) Household Members: Family Household Members Other:: Mother Housing: Apartment Do you presently have visiting nurse or other home services: No Alcohol intake: former Patient Tobacco Use Status: Current everyday Tobacco user Tobacco use type: Cigarette Cigarettes Per Day: 1 Years Smoked: 10 Smoked in Last 30 Days: Yes e-Cigarette/Vaping Use: Never Used Second Hand Smoke Exposure: Yes Use of substances other than those prescribed or required for medical reasons: Yes Substance Use Type: Crack/Cocaine, Heroin and Marijuana Advance Directives: No Advance Directives Information Provided: Yes Nutrition Risks: No Nutritional Risk service: No Current occupational status: unemployed Sexual orientation: Straight/Heterosexual Cognitive needs: No Hearing needs: No Vision needs: Yes Physical Exam ED Vital Signs: Vital Signs - 24 hr 10/21/24 05:47 10/21/24 06:06 10/21/24 06:49 Pulse Rate 112 H 92 90 Respiratory Rate 17 18 18 Blood Pressure 00/00 L Pulse Oximetry 76 L Oxygen Delivery Method Room Air Oxygen Flow Rate 10/21/24 07:23 10/21/24 09:02 10/21/24 09:20 Pulse Rate 92 77 Respiratory Rate 10 L 11 L Blood Pressure 137/71 134/77 Pulse Oximetry 97 91 L 87 L Oxygen Delivery Method Nasal Cannula Room Air Oxygen Flow Rate 2 BMI result Body Mass Index 25.8 Const Other: Appearance: Alert. Oriented X3. In respiratory distress Eyes: Pupils equal, round and reactive to light. ENT: Pharynx normal. Neck: Normal inspection. Neck supple. No lymph nodes noted. No crepitus CVS: Normal heart rate and rhythm. Pulses normal. Normal S1 and S2 Respiratory: Patient has difficulty breathing, a bit cyanotic, initial oxygen saturation 76% on room air Abdomen: Soft and nontender. No rigidity. No distention. Skin: Skin warm and dry. Normal skin color. Normal skin turgor. Extremities: No lower extremity edema. No Lacerations. No Rash Neuro: Oriented X 3. No motor deficit. No sensory deficit. Moving all extremities. No slurred speech. CN 2 through 12 grossly intact Psych: calm, cooperative, normal affect Course Course Course Narrative: Patient was started immediately on nebulization treatments, IV Solu-Medrol and magnesium All of patient's labs pending Reevaluation(s) Reevaluation #1: Patient received in sign out from Dr. Elkins, wheezing improved after neb treatments, patient feels comfortable with discharge. Will check ambulatory sat prior. Time: 08:08 Reevaluation #2: Patient became hypoxic with increased work of breathing upon ambulation, O2 sat dropped to 88%, use of accessory muscles. Patient agreeable to admission for asthma exacerbation. Admission accepted by Juanis Castellon NP. Time: 09:01 Medications Administered Generic Name Dose Route Start Last Admin Trade Name Freq PRN Reason Stop Dose Admin Albuterol/Ipratropium 3 ml 10/21/24 12:00 10/21/24 11:14 Albuterol/Iprat 2.5/0.5mg 3 Ml Ampul.Neb INHALE 3 ml RQ4H WHILE AWAKE GERA Administration Enoxaparin Sodium 40 mg 10/21/24 10:00 10/21/24 10:30 Enoxaparin Sodium 40 Mg/0.4 Ml Syringe SUBCUT 40 mg Q24H GERA Administration Lactated Ringer's 1,000 mls @ 100 mls/hr 10/21/24 10:00 10/21/24 12:26 Lr IVCONT 10/22/24 05:59 100 mls/hr .Q10H GERA Administration Doxycycline Hyclate 100 mg/ 250 mls @ 166.67 mls/hr 10/21/24 10:00 10/21/24 12:26 Sodium Chloride IV Infused Q12H GERA Infusion Discontinued Medications Generic Name Dose Route Start Last Admin Trade Name Freq PRN Reason Stop Dose Admin Albuterol Sulfate 5 mg/ 7.5 mg 10/21/24 06:45 10/21/24 06:45 Albuterol Sulfate 2.5 mg INHALE 10/21/24 06:46 7.5 mg ONCE ONE Administration Albuterol Sulfate 5 mg/ 0 mg 10/21/24 06:00 10/21/24 06:06 Albuterol/Ipratropium 3 ml INHALE 10/21/24 06:01 1 each ONCE ONE Administration Magnesium Sulfate 2 gm in 50 mls @ 25 mls/hr 10/21/24 05:46 10/21/24 06:28 Magnesium Sulfate/H2o IV 10/21/24 07:45 Infused ONCE ONE Infusion Methylprednisolone Sodium Succinate 125 mg 10/21/24 05:46 10/21/24 05:50 Methylprednisolone Sod Succ 125 Mg/2 Ml Vial IVPUSH 10/21/24 05:47 125 mg ONCE ONE Administration Medical Decision Making Medical Decision Making [facility] Narrative: Patient's white blood cell count 17.6, no significant chemistry abnormality, negative for influenza COVID RSV Unremarkable chest x-ray After 1 nebulization treatment, patient respirations status improved, oxygenating 95% on room air Differential Diagnosis Differential Diagnoses: The differential diagnosis associated with the presentation includes (Asthma exacerbation, viral URI, bronchitis) Admission/Observation Consideration of admission/observation: Escalation of care including admission/observation considered (Given patient's initial low O2 saturation, observation/admission considered) Lab Data [facility] Lab Attestation statement: I reviewed the patient's lab results. 10/21/24 05:54 10/21/24 05:54 Labs: Lab Results 10/21/24 10/21/24 Range/Units 05:54 05:57 WBC 17.6 H (4.8-10.8) X10*3/uL RBC 5.13 (4.60-5.80) X10*6/uL Hgb 14.5 (14.0-18.0) g/dl Hct 42.4 (42.0-52.0) % MCV 82.7 (80.0-98.0) fL MCH 28.3 (27.0-33.0) pg MCHC 34.2 (31.0-36.0) g/dl RDW 12.3 (11.0-16.0) % Plt Count 360 D (160-400) X10*3/uL MPV 9.4 (9.4-12.4) fL Immature Gran % (Auto) 0.3 (0.0-0.4) % Neut % (Auto) 45.9 (45-73) % Lymph % (Auto) 21.2 (20-40) % [place] % (Auto) 6.1 (2-11) % Eos % (Auto) 25.9 H (0-4) % Baso % (Auto) 0.6 (0-2) % Lymph # (Auto) 3.7 (1.2-4.9) X10*3/uL [place] # (Auto) 1.1 (0.1-1.2) X10*3/uL Eos # (Auto) 4.6 H (0.0-0.4) X10*3/uL Baso # (Auto) 0.1 (0.0-0.2) X10*3/uL Abs Immat Gran (auto) 0.06 H (0.00-0.03) X10*3/uL Absolute Neuts (auto) 8.1 (2.0-8.3) x10*3/uL Absolute Nucleated RBC 0.000 (0.0-0.012) X10*3/uL Nucleated RBC % (auto) 0.0 (0.0-0.2) /100WBC Smear Tech's Comments VERIFIED Sodium 137 (135-145) mmol/L Potassium 3.7 (3.3-5.1) mmol/L Chloride 95 L (96-108) mmol/L Carbon Dioxide 33 H (22-29) mmol/L Anion Gap 13 (12-20) BUN 14 (9-16) mg/dL Creatinine 1.23 (0.5-1.4) mg/dL Estim Creat Clear Calc 90.1 Estimated GFR > 60 Random Glucose 125 H (60-115) mg/dL Calcium 9.2 (8.4-10.2) mg/dL Troponin I High Sens 3.3 (<3.5-35.0) ng/L Influenza Type A (PCR) NEGATIVE (Negative) Influenza Type B (PCR) NEGATIVE (Negative) RSV RNA Qual (PCR) NEGATIVE (Negative) SARS-CoV-2 RNA (RT-PCR) NEGATIVE (Negative) Independent Interpretation I performed an independent interpretation of an: Plain X-Ray Radiology Impression Discussion of test interpretation with radiology: I have reviewed the radiologist's reading. Radiologist Impression: No significant abnormality is noted involving the heart, lungs, mediastinum, bony thorax or soft tissues. XR/XR chest 1V IMPRESSION: Unremarkable examination. Critical Care Time Critical Care Time Critical Care Time: Yes Total Critical Care Time: 60 Attestation: I have personally provided critical care time. Time includes review of lab data, radiology results, discussion with consultants, and monitoring for potential decompensation. Intervention performed as documented. Discharge Plan Discharge Clinical Impression: Asthma with exacerbation Patient Disposition: Admitted As Inpatient
[2024-10-21] MEDS: Albuterol Sulfate 5 MG, Albuterol/Iprat 2.5/0.5MG 3 ML 3 ML INHALE (06:06)
[2024-10-21 06:11] LABS: Basophils Absolute Auto 0.1 X10*3/uL (0.0-0.2); Basophils Percent Auto 0.6 % (0-2); Eosinophils Absolute Auto 4.6 X10*3/uL (0.0-0.4); Eosinophils Percent Auto 25.9 % (0-4); Hematocrit 42.4 % (42.0-52.0); Hemoglobin 14.5 g/dl (14.0-18.0); Imm Gran Abs Auto 0.06 X10*3/uL (0.00-0.03); Imm Gran Pct Auto 0.3 % (0.0-0.4); Lymphocytes Absolute Auto 3.7 X10*3/uL (1.2-4.9); Lymphocytes Percent Auto 21.2 % (20-40); MANUAL DIFF FLAG SCAN; Mean Corpuscular HGB Conc 34.2 g/dl (31.0-36.0); Mean Corpuscular Hemoglobin 28.3 pg (27.0-33.0); Mean Corpuscular Volume 82.7 fL (80.0-98.0); Mean Platelet Volume 9.4 fL (9.4-12.4); Monocytes Absolute Auto 1.1 X10*3/uL (0.1-1.2); Monocytes Percent Auto 6.1 % (2-11); Neutrophils Absolute Auto 8.1 x10*3/uL (2.0-8.3); Neutrophils Percent Auto 45.9 % (45-73); Platelet Count 360 X10*3/uL (160-400); Red Blood Count 5.13 X10*6/uL (4.60-5.80); Red Cell Distribution Width 12.3 % (11.0-16.0); SCAN SMEAR FLAG 1; White Blood Count 17.6 X10*3/uL (4.8-10.8)
[2024-10-21 06:19] LABS: Anion Gap 13 (12-20); Blood Urea Nitrogen 14 mg/dL (9-16); Calcium 9.2 mg/dL (8.4-10.2); Carbon Dioxide 33 mmol/L (22-29); Chloride 95 mmol/L (96-108); Creatinine Clr Calc Pharmacy 90.1; Estimated Glomerular Filt Rate > 60; Glucose Random 125 mg/dL (60-115); Potassium 3.7 mmol/L (3.3-5.1); Sodium 137 mmol/L (135-145)
--- OUTSIDE RECORDS SUMMARY | 2024-10-21 06:20 | XMS_ITS | Continuity of Care Document ---
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 Name Role Phone Not on Staff, PCP Primary Care Physician Unavail able Encounter 07/03/24 - 07/10/24 [facility] [address], [address] [place] [address]- Attending Physician: Frank Myers Admitting Physician: Frank Myers Referring Physician: Frank Myers Allergies, Adverse Reactions, Alerts No Known Allergies Problem List Condition Confirmation Course Effective Dates Status Health St atus Informant 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 felxion deformity r/t injury a few months ago RESULT: Hand Min 3 Views Left Hand Min 3 Views Left, 3 views Reason: fingers feel numb; ? felxion deformity r t injury a few months ago COMPARISON: None. FINDINGS: No evidence of fracture or dislocation. No significant osteoarthritis or evidence of inflammatory arthropathy. IMPRESSION: No osseous abnormality. WSN: [id number] Ordering Physician: Frank Otto Dictated By: Serg Ewing MD Dictated Date/Time: 07/03/24 9:49 am Reviewed By: Serg Ewing MD Signed By: Serg Ewing MD Signed Date/Time: 07/03/24 9:49 am Transcribed By: DENG Transcribed Date/Time: 07/03/24 9:46 am Patient Care team information Care Team Personnel Name: Not on Staff, PCP Position: S Physician (General Medicine) Member Role: PCP Care Team Related Persons Name: TOÑO SYED Address: [address] [address]
--- OUTSIDE RECORDS SUMMARY | 2024-10-21 06:20 | XMS_ITS | Continuity of Care Document ---
Author Organization [facility] ter Address [address] [place] [id number]- Care Team Providers Care Grants Assistant Name Role Phone Fermin Ortega MD, Alana Bowling Primary Care Physician Encounter [facility] [place](s[place] 10/31/23 - 11/01/[address] [address]- Encounter Diagnosis Cellulitis, leg(Final) - 11/01/23 Discharge Disposition: A-D/C Home Attending Physician: Clem Marcum MD Admitting Physician: Clem Marcum MD Referring Physician: Not on Staff, Referring MD Allergies, Adverse Reactions, Alerts No Known Allergies Medications cephalexin monohydrate 500 mg oral capsule 1 capsule = 500 mg, By Mouth, 4 times a day, for 10 days, # 40 capsule, 0 Refills, Acute 11/11/23 7:22:00 EST, 11/01/23 7:22:00 EST, Capsule, [id number], Partial fill upon patient request if the prescription is for a schedule II opioid drug.,... 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 Active Simple laceration of chin Confirmed 07/25/11 Active Results Radiology Reports * Exam Date Time Procedure Performing Provider Status 11/01/23 6:[address] Abd/Pelvis W/ IV Contrast Only Eduardo Mena (Verified) Notes: (CT Abd/Pelvis W/ IV Contrast Only) Reason For Exam: LLQ abdominal pain;Other: RESULT: CT Abd/Pelvis W/ IV Contrast Only CT Abd/Pelvis W/ IV Contrast Only Hx of Present Illness: right iguanal pain right flank pain no pain with urination right lower leg pain redness; Reason: LLQ abdominal pain; Clinical Question(s): Abscess TECHNIQUE: Spiral CT through the abdomen and pelvis with IV contrast formatted in 3 planes. 100 cc of Omnipaque 300 was administered intravenously. This study was performed without oral contrast. Weight-based protocol using automatic tube modulation was used to optimize exposure parameters. CTDIvol Body: 17.90 mGy, DLP Body: 991 mGy*cm. COMPARISON: CT abdomen and pelvis with contrast 07/15/2011. FINDINGS: Supervisor Dry Cell Assembly View Findings, Lines and Tubes: None. Visualized Chest: Lung bases are clear. No pleural effusion. The heart is normal in size. No pericardial effusion. Diaphragm: Normal. Liver: Normal. Gallbladder: No CT evidence of gallbladder pathology. Bile ducts: No biliary ductal dilation. Spleen: Normal. Pancreas: Normal. Adrenal glands: Normal. Kidneys and ureters: No hydronephrosis, stones, or suspicious masses. Bladder: Normal. Reproductive organs: Unremarkable. Stomach, small bowel, and large bowel: Normal. Appendix: Normal. Peritoneum and retroperitoneum: No ascites or pneumoperitoneum. No omental or mesenteric lesions. Lymph nodes: No pathologically enlarged lymph nodes. Blood vessels: Normal. No aneurysm. No evidence of venous thrombosis. Abdominal and pelvic wall: Redemonstrated bilateral enlarged inguinal lymph nodes, right greater than left measuring up to 1.7 cm with normal fatty hilum Bones: No acute abnormality. IMPRESSION: No acute intra-abdominal abnormality. No pathologically enlarged intra-abdominal lymph nodes. Unchanged mildly enlarged right inguinal lymph nodes with normal fatty hilum. Continued clinical follow-up recommended. Wet read provided via [facility] by Dr. Murcia on 11/01/2023 6:35 AM. I have personally reviewed the images and I agree with this report. WSN: [id number] Ordering Physician: Kelsi Virk Dictated By: Ramu Murcia DO Dictated Date/Time: 11/01/23 7:49 am Reviewed By: Ryan Rangel MD Signed By: Ryan Rangel MD Signed Date/Time: 11/01/23 7:54 am Transcribed By: DENG Transcribed Date/Time: 11/01/23 6:36 am * Exam Date Time Procedure Performing Provider Status 10/31/23 2:51 PM US Pelvic Doppler Comp Pancho Barnett; Auth (Verified) Notes: (US Pelvic Doppler Comp) Reason For Exam: Scrotal Pain;Other: RESULT: US Pelvic Doppler Comp US Scrotum and Contents, US Pelvic Doppler Comp Reason: Right-sided pain; Clinical Question(s): Torsion COMPARISON: US Soft Tissue Pelvis 01/20/2022. TECHNIQUE: High-resolution sonography with grayscale, color and spectral Doppler analysis. FINDINGS: RIGHT: Right testicle size: 4.1 x 2.2 x 3.3 cm (15.3 cc). Normal right testicle size, contour and echotexture without focal lesions. Normal arterial and venous waveforms. Epididymal head cyst measuring 0.8 x 0.8 x 0.9 cm. The epididymis is otherwise unremarkable. No significant varicocele. Small hydrocele with minimal debris measuring 3.9 x 1.3 x 2.8 cm, volume of 7.2 cc. In the area of patient's pain in the right proximal thigh/inguinal canal, there are two adjacent prominent but morphologically normal lymph nodes. They measure 4.0 x 1.4 x 2.1 cm and 2.6 x 1.2 x 1.3 cm and demonstrate increased vascularity on color Doppler imaging. These appear stable to slightly decreased in size compared to prior exam of 01/20/2022. LEFT: Left testicle size: 3.8 x 1.9 x 3.1 cm (11.5 cc). Normal left testicle size, contour and echotexture without focal lesions. Appendix testis noted. Normal arterial and venous waveforms. The epididymis is unremarkable. No significant varicocele. Small hydrocele with minimal debris measuring 4.7 x 1.1 x 2.9 cm, volume of 7.6 cc. IMPRESSION: No evidence of active testicular torsion. Small bilateral hydroceles with minimal debris. Prominent right inguinal lymph nodes, measuring up to 1.4 cm in short axis, stable or slightly decreased in size compared to prior exam. If clinically warranted, CT Abdomen and Pelvis can be obtainedto evaluate for any intra- abdominal lymphadenopathy as previously recommended. WSN: [id number] Ordering Physician: Wu Diaz Dictated By: Leoncio Darnell MD Dictated Date/Time: 10/31/23 4:16 pm Reviewed By: Leoncio Darnell MD Signed By: Leoncio Darnell MD Signed Date/Time: 10/31/23 4:16 pm Transcribed By: DENG Transcribed Date/Time: 10/31/23 3:25 pm * Exam Date Time Procedure Performing Provider Status 10/31/23 2:51 PM US Scrotum and Contents Anjana Barnett ca; Auth (Verified) Notes: (US Scrotum and Contents) Reason For Exam: Pain RESULT: US Scrotum and Contents US Scrotum and Contents, US Pelvic Doppler Comp Reason: Right-sided pain; Clinical Question(s): Torsion COMPARISON: US Soft Tissue Pelvis 01/20/2022. TECHNIQUE: High-resolution sonography with grayscale, color and spectral Doppler analysis. FINDINGS: RIGHT: Right testicle size: 4.1 x 2.2 x 3.3 cm (15.3 cc). Normal right testicle size, contour and echotexture without focal lesions. Normal arterial and venous waveforms. Epididymal head cyst measuring 0.8 x 0.8 x 0.9 cm. The epididymis is otherwise unremarkable. No significant varicocele. Small hydrocele with minimal debris measuring 3.9 x 1.3 x 2.8 cm, volume of 7.2 cc. In the area of patient's pain in the right proximal thigh/inguinal canal, there are two adjacent prominent but morphologically normal lymph nodes. They measure 4.0 x 1.4 x 2.1 cm and 2.6 x 1.2 x 1.3 cm and demonstrate increased vascularity on color Doppler imaging. These appear stable to slightly decreased in size compared to prior exam of 01/20/2022. LEFT: Left testicle size: 3.8 x 1.9 x 3.1 cm (11.5 cc). Normal left testicle size, contour and echotexture without focal lesions. Appendix testis noted. Normal arterial and venous waveforms. The epididymis is unremarkable. No significant varicocele. Small hydrocele with minimal debris measuring 4.7 x 1.1 x 2.9 cm, volume of 7.6 cc. IMPRESSION: No evidence of active testicular torsion. Small bilateral hydroceles with minimal debris. Prominent right inguinal lymph nodes, measuring up to 1.4 cm in short axis, stable or slightly decreased in size compared to prior exam. If clinically warranted, CT Abdomen and Pelvis can be obtainedto evaluate for any intra- abdominal lymphadenopathy as previously recommended. WSN: [id number] Ordering Physician: Wu Diaz Dictated By: Leoncio Darnell MD Dictated Date/Time: 10/31/23 4:16 pm Reviewed By: Leoncio Darnell MD Signed By: Leoncio Darnell MD Signed Date/Time: 10/31/23 4:16 pm Transcribed By: DENG Transcribed Date/Time: 10/31/23 3:25 pm Vital Signs Most recent to oldest [Reference Range]: 1 2 3 Height 180 cm (11/01/23 7:47 AM) 180 cm (10/31/23 1:25 PM) 180 cm (10/31/23 1:18 PM) Oxygen Saturation [94-100 %] 95 % (11/01/23 7:47 AM) 96 % (11/01/23 6:39 AM) 97 % (11/01/23 4:18 AM) Pulse Rate [55-90 bpm] 64 bpm (11/01/23 7:47 AM) 78 bpm (11/01/23 6:39 AM) 76 bpm (11/01/23 4:18 AM) Blood Pressure [90-138/55-84 mm Hg] 128/51mm Hg (11/01/23 7:47 AM) 132/69mm Hg (11/01/23 6:39 AM) 126/68mm Hg (11/01/23 4:18 AM) Respiratory Rate [16-30 br/min] 18 br/min (11/01/23 7:47 AM) 16 br/min (11/01/23 6:39 AM) 17 br/min (11/01/23 4:18 AM) Temperature [96.8-100.4 DegF] 98.4 DegF (11/01/23 7:47 AM) 98.3 DegF (11/01/23 4:18 AM) 99.8 DegF (11/01/23 1:08 AM) Mode of Delivery (Oxygen) Room air (11/01/23 7:47 AM) Room air (11/01/23 6:39 AM) Room air (11/01/23 4:18 AM) Blood pressure sites Arm, left (11/01/23 7:47 AM) Arm, left (11/01/23 6:39 AM) Arm, left (11/01/23 4:18 AM) Temperature Route Oral (11/01/23 7:47 AM) Oral (11/01/23 4:18 AM) Oral (11/01/23 1:08 AM) Dry Weight 100 kg (11/01/23 7:47 AM) 100 kg (10/31/23 1:25 PM) 100 kg (10/31/23 1:18 PM) Note * Kelsi Dunne: PERFORM Event Display: Patient Education Leaflets Authored Date: [id number] Cellulitis ?? [id number] Cellulitis Cellulitis is an infection of the deep layers of skin. A break in the skin, such as a cut or scratch, can let bacteria under the skin. Cellulitis causes the affected skin to become red, swollen, warm, and sore. The reddened areas havea border you can see. An open sore may leak fluid (pus). You may have a fever, chills, and pain. Cellulitis is treated with antibiotics taken for 7 to 10 days. An open sore may be cleaned and covered with cool wet gauze. Symptoms should get better 1 to 2 days after treatment is started. Make sure to take all the antibiotics for the full number of days until they are gone. Keep taking the medicine even if your symptoms go away. If not treated, cellulitis can get into the bloodstream and lymph nodes. The infection can then spread throughout the body. This causes serious illness. Home care Follow these tips: ??? Limit the use of the part of your body with cellulitis.? If the infection is on your leg, keep your leg raised while sitting. This helps reduce swelling. ??? Take all of the antibiotic medicine exactly as directed until it is gone. Don't miss any doses, especially duringthe first 7 days. Finish taking all of the medicine even when your symptoms get better. ??? Keep the affected area clean and dry. ??? Wash your hands with soap and clean, running water before and after touching your skin. Anyone else who touches your skin should also wash his or her hands. Don't share towels. ?? Follow-up care Follow up with your healthcare provider, or as advised. If your infection doesn't go away after finishing the first antibiotic, your healthcare provider will prescribe a different one. ?? When to seek medical advice Call your healthcare provider right away if any of these occur: ??? Red areas that spread ??? Swelling or pain that gets worse ??? Fluid leaking from the skin (pus) ??? Fever higher of 100.4?? F (38.0?? C) or higher after 2 days on antibiotics ?? Last Reviewed Date: 2021 ?? [id number] [employer]. All rights reserved. This information is not intended as a substitute for professional medical care. Always follow your healthcare professional's instructions. ?? Patient Care team information Care Team Personnel Name: Fermin Ortega MD , Alana Bowling Position: Reference Physician Member Role: PCP Address: Address: [address] [place] [address] [address] [place] [address]- Name: Dorys Melara RN Position: [facility] ED RN W/OE and Tasks Member Role: Patient Care Provider Name: Kaylynn Cruz Position: [facility] ED TA [facility] Member Role: Cut Off Worker Name: Clem Marcum MD Position: [facility] Resident Member Role: Admitting Physician Address: Address: [address] [place] [address] [place] [address]- Name: Kelsi Dunne Position: [facility] Associate Professional Member Role: ED Physician Threader Operator Address: Address: [address] [place] [address] [place] [address]- Care Team Related Persons Name: TOÑO SYED Address: [address] [address]
[2024-10-21 06:26] LABS: Troponin-I High Sensitivity 3.3 ng/L (<3.5-35.0)
[2024-10-21 06:32] LABS: SLIDE REVIEW VERIFIED
[2024-10-21 06:42] LABS: Influenza A PCR NEGATIVE (Negative); Influenza B PCR NEGATIVE (Negative); Resp Syncy Virus RNA Qual PCR NEGATIVE (Negative); SARS COV2 PCR INHOUSE NEGATIVE (Negative)
[2024-10-21] MEDS: Albuterol Sulfate 5 MG, Albuterol Sulfate (0.083%) 2.5 MG 7.5 MG INHALE (06:45)
[2024-10-21 06:46] LABS: Venous Blood Gas Refer to POC result
--- NOTE | 2024-10-21 09:05 | MHC.EDTECH ---
this pct ambulated patient around the main ED , patients O2 stats were at 87-91 . provider aware .
--- NOTE | 2024-10-21 09:52 | PM.IMHP ---
History of Present Illness Date of Service: 10/21/24 Attending physician on admission: Edwardo Mack Chief Complaint: SOB, wheezing Patient is a 34-year-old male with a past medical history significant for mild intermittent asthma, depression, ADHD, and substance use disorder who presented to the ED with worsening shortness of breath and wheezing for the past 2 weeks. He reports that he has been using his albuterol inhaler sometimes multiple times in hour, causing him to run out recently and he started using his mother's ?blue inhaler ?. He has worsening shortness of breath with exertion and has had a productive cough with some dark green sputum. He denies any fever or chills. He has not been around anyone sick recently. He has had 2 episodes of vomiting secondary to coughing episodes and denies any hematemesis or coffee-ground emesis. Review of Systems Constitutional: Constitutional: Denies body ache(s), Denies chills, Denies fatigue, Denies fever(s) and Denies headache(s) Eyes: Eyes: Denies change in vision ENT: Denies headache(s), Denies nasal congestion, Denies nasal discharge and Denies sore throat Cardiovascular: Cardiovascular: Denies chest pain, Denies rapid heart rate, Denies leg edema, Denies lightheadedness and Denies dyspnea Respiratory: Respiratory: Reports chest congestion, Reports cough, Denies dyspnea and Reports wheezing Gastrointestinal: Gastrointestinal: Denies coffee ground emesis, Denies constipation, Denies diarrhea, Denies nausea, Reports vomiting and Denies hematemesis Genitourinary: Genitourinary: Denies dysuria and Denies urinary frequency Musculoskeletal: Musculoskeletal: Denies myalgias Integumentary/Breasts: Skin/Breast: Denies rash Neurologic: Denies confusion, Denies headache(s) and Denies memory loss Psychiatric: Psychiatric: Denies confusion and Denies memory loss Endocrine: Endocrine: Denies fatigue Hematologic/Lymphatic: Hematologic/Lymphatic: Denies easy bleeding Allergic/Immunologic: Allergic/Immunologic: Reports wheezing [facility] Medical History (Updated 10/21/24 @ 11:02 by Cielo Moseley PA-C) Asthma Depression ADHD (attention deficit hyperactivity disorder) Post traumatic stress disorder (PTSD) Substance abuse Patient denies medical problems Functional capacity: independent ambulation Family History Mother No problems noted. Father No problems noted. Surgical History No pertinent past surgical history Social History (Updated 10/09/23 @ 15:52 by Alana Ortega MD) Household Members: Family Household Members Other:: Mother Housing: Apartment Do you presently have visiting nurse or other home services: No Alcohol intake: former Patient Tobacco Use Status: Current everyday Tobacco user Tobacco use type: Cigarette Cigarettes Per Day: 1 Years Smoked: 10 Smoked in Last 30 Days: Yes e-Cigarette/Vaping Use: Never Used Second Hand Smoke Exposure: Yes Use of substances other than those prescribed or required for medical reasons: Yes Substance Use Type: Crack/Cocaine, Heroin and Marijuana Advance Directives: No Advance Directives Information Provided: Yes Nutrition Risks: No Nutritional Risk service: No Current occupational status: unemployed Sexual orientation: Straight/Heterosexual Cognitive needs: No Hearing needs: No Vision needs: Yes Meds Allergies Allergy/AdvReac Type Severity Reaction Status Date / Time No Known Allergies Allergy Verified 10/21/24 05:48 Active Medications: Current Medications Acetaminophen (Acetaminophen 325 Mg Tablet) 650 mg PO Q6H PRN PRN Reason: Pain, Mild (Pain Scale 1-3), fever or headache Albuterol/Ipratropium (Albuterol/Iprat 2.5/0.5mg 3 Ml Ampul.Neb) 3 ml INHALE RQ4H WHILE AWAKE GERA Benzonatate (Benzonatate 100 Mg Capsule) 100 mg PO TID PRN PRN Reason: Cough Calcium Carbonate (Calcium Carbonate 750 Mg Tab.Chew) 750 mg PO Q4H PRN PRN Reason: Heartburn Enoxaparin Sodium (Enoxaparin Sodium 40 Mg/0.4 Ml Syringe) 40 mg SUBCUT Q24H GERA Lactated Ringer's (Lr) 1,000 mls @ 100 mls/hr IVCONT .Q10H GERA Stop: 10/22/24 05:59 Magnesium Hydroxide (Milk Of Magnesia 30 Ml Oral.Susp) 30 ml PO DAILY PRN PRN Reason: Constipation Melatonin (Melatonin 3 Mg Tablet) 6 mg PO BEDTIME PRN PRN Reason: Insomnia Methylprednisolone Sodium Succinate (Methylprednisolone Sod Succ 40 Mg/Ml Vial) 40 mg IVPUSH BID GERA Ondansetron HCl (Ondansetron Hcl 4 Mg/2 Ml Vial) 4 mg IVPUSH Q8H PRN PRN Reason: Nausea and Vomiting Sodium Chloride (0.9 % Sodium Chloride Flush 3 Ml Syringe) 3 ml IVFLUSH QSHIFT GERA Home Medications ?Medication ?Instructions ?Recorded ?Confirmed ?Last Taken ?Type buprenorphine 8 mg-naloxone 2 mg 2 film sublingual ONCE 04/14/23 10/21/24 1 Week Ago History sublingual film (Suboxone) ~04/07/23 Physical Exam Vital Signs and Narrative: Vital Signs: Last Vital Signs Pulse 77 10/21/24 09:02 Resp 11 L 10/21/24 09:02 BP 134/77 10/21/24 09:02 Pulse Ox 87 L 10/21/24 09:20 O2 Del Method Room Air 10/21/24 09:20 O2 Flow Rate 2 10/21/24 09:02 BMI result Body Mass Index 25.8 General: AOx3, no acute distress Resp: minimal expiratory wheezing, rhonchi bilaterally throughout CVS: S1, S2, RRR GI: +BS, NT, no distention Skin: Warm, dry Extremities: No LE edema Psych: Appropriate affect Const: General: No confusion Orientation/consciousness: No confusion Neuro: General: No confusion Results Labs 10/21/24 05:54 10/21/24 05:54 Labs: Laboratory Results - last 24 hr 10/21/24 10/21/24 05:54 05:57 MCV 82.7 MCH 28.3 MCHC 34.2 RDW 12.3 Plt Count 360 D MPV 9.4 Immature Gran % (Auto) 0.3 Neut % (Auto) 45.9 Lymph % (Auto) 21.2 [place] % (Auto) 6.1 Eos % (Auto) 25.9 H Baso % (Auto) 0.6 Lymph # (Auto) 3.7 [place] # (Auto) 1.1 Eos # (Auto) 4.6 H Baso # (Auto) 0.1 Abs Immat Gran (auto) 0.06 H Absolute Neuts (auto) 8.1 Absolute Nucleated RBC 0.000 Nucleated RBC % (auto) 0.0 Smear Tech's Comments VERIFIED Anion Gap 13 Estim Creat Clear Calc 90.1 Estimated GFR > 60 Random Glucose 125 H Calcium 9.2 Troponin I High Sens 3.3 Influenza Type A (PCR) NEGATIVE Influenza Type B (PCR) NEGATIVE RSV RNA Qual (PCR) NEGATIVE SARS-CoV-2 RNA (RT-PCR) NEGATIVE Imaging Radiologist's Impressions: Impressions Chest X-Ray 10/21/24 06:05 IMPRESSION: Unremarkable examination. Electronically signed by: David Rome MD 10/21/2024 06:25 AM [facility] Assessment and Plan (1) Asthma with exacerbation: Status: Acute (2) JOHN (acute kidney injury): Status: Acute (3) Polysubstance use disorder: Status: Acute Plan Patient is a 34-year-old male with a past medical history significant for mild intermittent asthma, depression, ADHD, and substance use disorder who presented to the ED with worsening shortness of breath and wheezing for the past 2 weeks. Received DuoNeb, Solu-Medrol, albuterol and oxygen via NC in ED with improvement. mild intermittent asthma with acute exacerbation, no sepsis - leukocytosis, likely reactive - chest x-ray negative - EKG with sinus tachycardia, likely secondary to albuterol - COVID/flu/RSV negative - given IV Mag in ED - continue DuoNebs q.4h while awake - given Solu-Medrol 125 mg in ED, continue 40mg BID - start doxycycline 100 mg b.i.d. empirically for bronchitis - monitor CBC and BMP Dehydration, mild JOHN - creatinine up about 0.3 from baseline - LR 100 mL/hr x2L - monitor BMP LEANDRO - pt admits to intranasal heroin and crack cocaine recently - addiction med consult offered, pt declined - previously was on suboxone, has not taken since recent incarceration Pt with acute asthma exacerbation and new oxygen requirement with mild JOHN requiring admission for at least 2 midnights stay for IV steroids, breathing treatments and monitoring. Quality Stroke Does the patient have a stroke diagnosis?: No VTE Prior VTE?: No VTE Risk Level:: Medical - moderate - high VTE Device Contraindication: Treatment Not Indicated VTE Drug Contraindication: N/A - Med Ordered
[2024-10-21] MEDS: Enoxaparin Sodium 40 MG/0.4 ML SYRINGE SUBCUT (10:30)
[2024-10-21] MEDS: Doxycycline Hyclate 100 MG in 0.9 % Sodium Chloride 250 ML 166.67 MG IV ×2 (10:30→21:42)
--- NOTE | 2024-10-21 10:41 | PHA.MEDREC ---
Pharmacy Consult ? Medication Reconciliation Pharmacy has completed the medication reconciliation. Spoke with patient who stated he has not taken any of his medications for 2 weeks. He said hes been taking all his medications; suboxone 16 mg daily (dose stated by patient), clonidine 0.1 mg, seroquel 200 mg, hydroxyzine PRN and fluoxetine while incarcerated. He stated he was released 2 weeks ago and has not been able to take his medications since being released.
--- NOTE | 2024-10-21 10:46 | PC.NURSE ---
tiger connect sent to KARIN Bryan questioning need for blood cultures prior to ABX administration - per KARIN Buck, no need for blood cultures as pt is afebrile
[2024-10-21] MEDS: Albuterol/Iprat 2.5/0.5MG 3 ML AMPUL.NEB INHALE ×3 (11:14→20:01)
[2024-10-21] MEDS: Lactated Ringers 1,000 ML 100 ML IVCONT ×2 (12:26→21:41)
--- NOTE | 2024-10-21 14:37 | PC.NURSE ---
coughing fits with audible wheezes. recovers quickly. taking a break from NC d/t dry nares. Plan is to humidfy O2
[2024-10-21] MEDS: Benzonatate 100 MG CAPSULE PO (14:42)
--- NOTE | 2024-10-21 17:48 | PC.NURSE ---
pt reports relapsing after 5 months sober following his release from [facility], pt seeking to get back on suboxone, request sent to [facility] for addiction medicine consults. pt also c/o MARGARETH eczema to his feet - requested medicated lotion order.
[2024-10-21] MEDS: Acetaminophen 325 MG TABLET 650 MG PO (18:03)
[2024-10-21] MEDS: methylPREDNISolone Sod Succ 40 MG/ML VIAL IVPUSH (21:41)
[2024-10-21] MEDS: Nystatin/Triamcinolone Cream 15 GM TUBE 1 APPL TOPICAL (23:05)
[2024-10-22] VITALS (10 sets, daily range): BP systolic 112–139; BP diastolic 51–83; PULSE 64–105; RESP 16–20; TEMP 36.5–37.7; O2SAT 93–100
--- NOTE | 2024-10-22 01:50 | PC.NURSE ---
Took over care from CALISTA Nguyen at 1:00am, pt sleeping.
--- NOTE | 2024-10-22 02:52 | PC.NURSE ---
pt has inspiration and expiration wheezes, Notified respiratory , coming down to assess pt
[2024-10-22 05:07] LABS: MANUAL DIFF FLAG NO
[2024-10-22 05:09] LABS: Basophils Percent Auto 0.4 % (0-2); Eosinophils Percent Auto 0.1 % (0-4); Hemoglobin 13.4 g/dl (14.0-18.0); Imm Gran Abs Auto 0.03 X10*3/uL (0.00-0.03); Imm Gran Pct Auto 0.4 % (0.0-0.4); Lymphocytes Percent Auto 12.9 % (20-40); Mean Corpuscular HGB Conc 32.7 g/dl (31.0-36.0); Mean Corpuscular Hemoglobin 27.6 pg (27.0-33.0); Mean Corpuscular Volume 84.4 fL (80.0-98.0); Mean Platelet Volume 9.6 fL (9.4-12.4); Monocytes Absolute Auto 0.2 X10*3/uL (0.1-1.2); Monocytes Percent Auto 2.4 % (2-11); Neutrophils Absolute Auto 6.6 x10*3/uL (2.0-8.3); Neutrophils Percent Auto 83.8 % (45-73); Platelet Count 299 X10*3/uL (160-400); Red Blood Count 4.86 X10*6/uL (4.60-5.80); Red Cell Distribution Width 12.4 % (11.0-16.0); White Blood Count 7.9 X10*3/uL (4.8-10.8)
[2024-10-22 05:31] LABS: Anion Gap 11 (12-20); Blood Urea Nitrogen 11 mg/dL (9-16); Calcium 8.6 mg/dL (8.4-10.2); Carbon Dioxide 30 mmol/L (22-29); Chloride 102 mmol/L (96-108); Creatinine Clr Calc Pharmacy 149.8; Estimated Glomerular Filt Rate > 60; Glucose Random 128 mg/dL (60-115); Potassium 4.3 mmol/L (3.3-5.1); Sodium 139 mmol/L (135-145)
[2024-10-22] MEDS: Albuterol/Iprat 2.5/0.5MG 3 ML AMPUL.NEB INHALE ×3 (07:44→21:00)
--- NOTE | 2024-10-22 09:45 | MHC.CM.PN ---
PT REPORTS HE LIVES AT HOME WITH HIS PARENTS HE IS INDEPENDENT WITH CARE AND HAS NO DME HE DECLINES TO COMPLETE A HCP PCP: HEMANT BORGES DCP: HOME NO SERVICES MOTHER TO TRANSPORT
[2024-10-22] MEDS: methylPREDNISolone Sod Succ 40 MG/ML VIAL IVPUSH ×2 (09:48→21:00)
[2024-10-22] MEDS: Doxycycline Hyclate 100 MG in 0.9 % Sodium Chloride 250 ML 166.67 MG IV ×2 (09:49→21:00)
--- NOTE | 2024-10-22 10:30 | HO.ADDICTCON ---
History of Present Illness Date of Service: 10/22/2024 Chief Complaint: Asthma Exacerbation Reason for Consult: OUD Sources of Information: patient interviewed and chart reviewed HPI Narrative: Patient is a 34 year old male with OUD, currently medically admitted with asthma exacerbation. Consult requested to evaluate and treat ongoing substance use. Patient seen in overflow room 6, with belt glass sander. Patient awake, alert, engaged in interview. He reports he was incarcerated for approx 5 months and was receiving Buprenorhine during that time--he was released about 2 weeks ago, and within the last week started using fentanyl IN. Currently using up to 5 bags daily. Reports occasional cocaine use Denies alcohol use. Denies benzodiazepine use Treatment history reviewed Previously engaged in treatment with [facility] and Suboxone rx at that time was 24mg daily Denies any outpt treatment with methadone, but has received as part of a detox plan Reports 3 lifetime overdoses requiring narcan Expressing frustration with himself for picking up again after several months of no use His goal is to abstain and restart MOUD (suboxone) At time of interview patient expressed hesitation with starting buprenorphine now for fear of precipitated withdrawal He was reporting withdrawal sx ; body aches, anxiety, feeling hot and cold. He was also observed to be yawning several times, rhinorrhea noted, and was restless during interview Past Psychiatric History: -Hx of being treated for ADHD in childhood -Has OP therapist at [facility] -Denies hx of IPLOC -Denies previous hx of SA or SIB [facility] on 10/18/22 due to a suicide attempt by OD on heroin requiring 8 mg of intranasal Narcan. left detox AMA in April or May 2022 to go back to work and provide for his kids financially, however he relapsed on substances shortly after. Review of Systems Constitutional: Reports as per HPI Diagnostics Vital Signs (24Hr): Vital Signs - 24 hr 10/21/24 11:15 10/21/24 12:00 10/21/24 14:36 Temperature 98.6 F 98.3 F Pulse Rate 89 89 79 Respiratory Rate 13 12 18 Blood Pressure 113/53 L 103/56 L Pulse Oximetry 94 94 Oxygen Delivery Method Nasal Cannula Room Air Oxygen Flow Rate 2 10/21/24 15:14 10/21/24 18:31 10/21/24 20:00 Temperature 98.5 F 98.7 F Pulse Rate 91 87 77 Respiratory Rate 18 20 16 Blood Pressure 107/64 115/60 Pulse Oximetry 93 97 Oxygen Delivery Method Nasal Cannula Nasal Cannula Oxygen Flow Rate 2 2 10/21/24 20:02 10/22/24 00:11 10/22/24 04:00 Temperature 98.4 F 98.3 F Pulse Rate 98 64 77 Respiratory Rate 20 18 16 Blood Pressure 117/51 L 134/55 L Pulse Oximetry 98 93 Oxygen Delivery Method Humidified O2 Nasal Cannula Oxygen Flow Rate 2 2 10/22/24 06:00 10/22/24 07:45 10/22/24 08:00 Temperature 97.7 F 97.8 F Pulse Rate 74 87 73 Respiratory Rate 18 18 16 Blood Pressure 112/65 118/67 Pulse Oximetry 93 94 Oxygen Delivery Method Nasal Cannula Nasal Cannula Oxygen Flow Rate 2 2 BMI result Body Mass Index 25.8 Labs 10/22/24 04:09 10/22/24 04:09 Labs: Laboratory Results - last 48 hr 10/21/24 10/21/24 10/22/24 05:54 05:57 04:09 WBC 17.6 H 7.9 RBC 5.13 4.86 Hgb 14.5 13.4 L Hct 42.4 41.0 L MCV 82.7 84.4 MCH 28.3 27.6 MCHC 34.2 32.7 RDW 12.3 12.4 Plt Count 360 D 299 MPV 9.4 9.6 Immature Gran % (Auto) 0.3 0.4 Neut % (Auto) 45.9 83.8 H Lymph % (Auto) 21.2 12.9 L [place] % (Auto) 6.1 2.4 Eos % (Auto) 25.9 H 0.1 Baso % (Auto) 0.6 0.4 Lymph # (Auto) 3.7 1.0 L [place] # (Auto) 1.1 0.2 Eos # (Auto) 4.6 H 0.0 Baso # (Auto) 0.1 0.0 Abs Immat Gran (auto) 0.06 H 0.03 Absolute Neuts (auto) 8.1 6.6 Absolute Nucleated RBC 0.000 0.000 Nucleated RBC % (auto) 0.0 0.0 Smear Tech's Comments VERIFIED Sodium 137 139 Potassium 3.7 4.3 Chloride 95 L 102 Carbon Dioxide 33 H 30 H Anion Gap 13 11 L BUN 14 11 Creatinine 1.23 0.74 Estim Creat Clear Calc 90.1 149.8 Estimated GFR > 60 > 60 Random Glucose 125 H 128 H Calcium 9.2 8.6 D Troponin I High Sens 3.3 Influenza Type A (PCR) NEGATIVE Influenza Type B (PCR) NEGATIVE RSV RNA Qual (PCR) NEGATIVE SARS-CoV-2 RNA (RT-PCR) NEGATIVE Imaging Radiology Impressions: ITS Impressions Chest X-Ray 10/21/24 06:05 IMPRESSION: Unremarkable examination. Electronically signed by: David Rome MD 10/21/2024 06:25 AM [facility] Mental Status Exam Mental Status Exam Patient Orientation: Person, Place, Time and Situation Level of Consciousness: Awake, Appropriate and Alert Patient Behavior: Appropriate Mood Description: Anxious Affect Description: Anxious Speech Pattern: Clear Thought Content: positive for Intact Judgement: Good Medications Medications Current Medications Acetaminophen (Acetaminophen 325 Mg Tablet) 650 mg PO Q6H PRN PRN Reason: Pain, Mild (Pain Scale 1-3), fever or headache Last Admin: 10/21/24 18:03 Dose: 650 mg Albuterol Sulfate (Albuterol Sulfate (0.083%) 2.5 Mg/3 Ml Vial.Neb) 2.5 mg INHALE Q4H PRN PRN Reason: Shortness of Breath/Wheezing Albuterol/Ipratropium (Albuterol/Iprat 2.5/0.5mg 3 Ml Ampul.Neb) 3 ml INHALE RQ4H WHILE AWAKE [facility] Last Admin: 10/22/24 07:44 Dose: 3 ml Benzonatate (Benzonatate 100 Mg Capsule) 100 mg PO TID PRN PRN Reason: Cough Last Admin: 10/21/24 14:42 Dose: 100 mg Calcium Carbonate (Calcium Carbonate 750 Mg Tab.Chew) 750 mg PO Q4H PRN PRN Reason: Heartburn Clonidine HCl (Clonidine Hcl 0.1 Mg Tablet) 0.1 mg PO BID PRN; Protocol PRN Reason: anxiety Enoxaparin Sodium (Enoxaparin Sodium 40 Mg/0.4 Ml Syringe) 40 mg SUBCUT Q24H [facility] Last Admin: 10/22/24 09:30 Dose: Not Given Hydroxyzine HCl (Hydroxyzine Hcl 50 Mg Tablet) 50 mg PO BID PRN PRN Reason: Anxiety Doxycycline Hyclate 100 mg/ (Sodium Chloride) 250 mls @ 166.67 mls/hr IV Q12H [facility] Last Admin: 10/22/24 09:49 Dose: 166.67 mls/hr Magnesium Hydroxide (Milk Of Magnesia 30 Ml Oral.Susp) 30 ml PO DAILY PRN PRN Reason: Constipation Melatonin (Melatonin 3 Mg Tablet) 6 mg PO BEDTIME PRN PRN Reason: Insomnia Methylprednisolone Sodium Succinate (Methylprednisolone Sod Succ 40 Mg/Ml Vial) 40 mg IVPUSH BID [facility] Last Admin: 10/22/24 09:48 Dose: 40 mg Nystatin/Triamcinolone Acetonide (Nystatin/Triamcinolone Cream 15 Gm Tube) 1 appl TOPICAL BID [facility]; Protocol Last Admin: 10/22/24 10:12 Dose: Not Given Ondansetron HCl (Ondansetron Hcl 4 Mg/2 Ml Vial) 4 mg IVPUSH Q8H PRN PRN Reason: Nausea and Vomiting Sodium Chloride (0.9 % Sodium Chloride Flush 3 Ml Syringe) 3 ml IVFLUSH QSHIFT [facility] Last Admin: 10/22/24 08:44 Dose: Not Given Allergies Allergies Allergy/AdvReac Type Severity Reaction Status Date / Time No Known Allergies Allergy Verified 10/21/24 05:48 Assessment & Plan Assessment & Plan (1) Opioid use disorder: Status: Acute Code(s): F11.90 - Opioid use, unspecified, uncomplicated Assessment and Plan: would like to have comfort meds for now with plan to start buprenorphine later today will start with 16mg x1 and reassess belt glass sander to assist with connecting to community providers suboxone rx to be sent to [facility] at discharge last HIV and hepatitis screens in 2022--check in regarding screens while incarcerated Total time managing care of this patient today _40__ minutes. PMFSH Past Medical History Medical History (Updated 10/21/24 @ 11:02 by Cielo Moseley PA-C) Asthma Depression ADHD (attention deficit hyperactivity disorder) Post traumatic stress disorder (PTSD) Substance abuse Patient denies medical problems Family History Family History Mother No problems noted. Father No problems noted. Surgical History Surgical History No pertinent past surgical history Social History Social History (Updated 10/09/23 @ 15:52 by Alana Ortega MD) Household Members: Family Household Members Other:: Mother Housing: Apartment Do you presently have visiting nurse or other home services: No Alcohol intake: former Patient Tobacco Use Status: Current everyday Tobacco user Tobacco use type: Cigarette Cigarettes Per Day: 1 Years Smoked: 10 Smoked in Last 30 Days: Yes e-Cigarette/Vaping Use: Never Used Second Hand Smoke Exposure: Yes Use of substances other than those prescribed or required for medical reasons: Yes Substance Use Type: Crack/Cocaine, Heroin and Marijuana Advance Directives: No Advance Directives Information Provided: Yes Nutrition Risks: No Nutritional Risk service: No Current occupational status: unemployed Sexual orientation: Straight/Heterosexual Cognitive needs: No Hearing needs: No Vision needs: Yes
[2024-10-22 11:47] LABS: Amphetamine Screen Urine Not Detected (Not Detect); Barbiturates, Urine Not Detected (Not Detect); Benzodiazepines Screen Urine Not Detected (Not Detect); Buprenorphine Scr Not Detected (Not Detect); Cannabinoid Screen Urine POSITIVE (Not Detect); Cocaine Screen Urine POSITIVE (Not Detect); Fentanyl, urine POSITIVE (Not Detect); Methadone Screen, Urine Not Detected (Not Detect); Opiate Screen Urine POSITIVE (Not Detect); Oxycodone Screen Urine Not Detected (Not Detect); Phencyclidine Screen Urine Not Detected (Not Detect)
[2024-10-22] MEDS: Benzonatate 100 MG CAPSULE PO (13:16)
[2024-10-22] MEDS: guaiFEN/Codeine SF 200/20/10ML 10 ML LIQUID PO (13:37)
--- NOTE | 2024-10-22 13:41 | PC.NURSE ---
pt has a bad episode of coughing and vomited. tesselon prn given. Dr camacho notified and cough syrup ordered. given per mar
[2024-10-22] MEDS: Buprenorphine/Naloxone 8/2 mg FILM 2 FILM SUBLINGUAL (15:17)
--- NOTE | 2024-10-22 15:18 | HO.PM.IMPN ---
Subjective Subjective Date of Service: 10/22/24 Interval History: asthma Review of Systems Is still has shortness of breath but somewhat improving Has aggressive cough and vomited Physical Exam Vital Signs: Vital Signs: Last Vital Signs Temp 98.0 F 10/22/24 11:48 Pulse 85 10/22/24 11:48 Resp 18 10/22/24 11:48 BP 139/83 10/22/24 11:48 Pulse Ox 100 10/22/24 11:48 O2 Del Method Nasal Cannula 10/22/24 11:48 O2 Flow Rate 2 10/22/24 11:48 BMI result Body Mass Index 25.8 Appearance: Alert.? Oriented X3.? sob cvs: rrr, [id number] . res: air entry diminshed ,has b/l wheezing abd: no rebound or guarding ,nt, bs present. ext pulses present , no cyanosis . neuro: axo3 , nonfocal. Objective Data Active Medications Acetaminophen (Acetaminophen 325 Mg Tablet) 650 mg PO Q6H PRN PRN Reason: Pain, Mild (Pain Scale 1-3), fever or headache Last Admin: 10/21/24 18:03 Dose: 650 mg Documented By: ROMARIO Albuterol Sulfate (Albuterol Sulfate (0.083%) 2.5 Mg/3 Ml Vial.Neb) 2.5 mg INHALE Q4H PRN PRN Reason: Shortness of Breath/Wheezing Albuterol/Ipratropium (Albuterol/Iprat 2.5/0.5mg 3 Ml Ampul.Neb) 3 ml INHALE RQ4H WHILE [facility]WAKE [facility] Last Admin: 10/22/24 11:36 Dose: 3 ml Documented By: MIMI Benzonatate (Benzonatate 100 Mg Capsule) 100 mg PO TID PRN PRN Reason: Cough Last Admin: 10/22/24 13:16 Dose: 100 mg Documented By: MATILDE Calcium Carbonate (Calcium Carbonate 750 Mg Tab.Chew) 750 mg PO Q4H PRN PRN Reason: Heartburn Clonidine HCl (Clonidine Hcl 0.1 Mg Tablet) 0.1 mg PO BID PRN; Protocol PRN Reason: anxiety Enoxaparin Sodium (Enoxaparin Sodium 40 Mg/0.4 Ml Syringe) 40 mg SUBCUT Q24H [facility] Last Admin: 10/22/24 09:30 Dose: Not Given Documented By: MATILDE Non-Admin Reason: Patient Refused Guaifenesin/Codeine Phosphate (Guaifen/Codeine Sf 200/20/10ml 10 Ml Liquid) 10 ml PO Q4H PRN PRN Reason: Cough Last Admin: 10/22/24 13:37 Dose: 10 ml Documented By: MATILDE Hydroxyzine HCl (Hydroxyzine Hcl 50 Mg Tablet) 50 mg PO BID PRN PRN Reason: Anxiety Doxycycline Hyclate 100 mg/ (Sodium Chloride) 250 mls @ 166.67 mls/hr IV Q12H [facility] Last Infusion: 10/22/24 11:24 Dose: Infused Documented By: MATILDE Magnesium Hydroxide (Milk Of Magnesia 30 Ml Oral.Susp) 30 ml PO DAILY PRN PRN Reason: Constipation Melatonin (Melatonin 3 Mg Tablet) 6 mg PO BEDTIME PRN PRN Reason: Insomnia Methylprednisolone Sodium Succinate (Methylprednisolone Sod Succ 40 Mg/Ml Vial) 40 mg IVPUSH BID [facility] Last Admin: 10/22/24 09:48 Dose: 40 mg Documented By: MATILDE Nystatin/Triamcinolone Acetonide (Nystatin/Triamcinolone Cream 15 Gm Tube) 1 appl TOPICAL BID [facility]; Protocol Last Admin: 10/22/24 10:12 Dose: Not Given Documented By: MATILDE Non-Admin Reason: Patient Refused Ondansetron HCl (Ondansetron Hcl 4 Mg/2 Ml Vial) 4 mg IVPUSH Q6H PRN PRN Reason: Nausea and Vomiting Sodium Chloride (0.9 % Sodium Chloride Flush 3 Ml Syringe) 3 ml IVFLUSH QSHIFT [facility] Last Admin: 10/22/24 08:44 Dose: Not Given Documented By: MATILDE Non-Admin Reason: IV Running Labs 10/22/24 04:09 10/22/24 04:09 Labs: Laboratory Results - last 24 hr 10/22/24 10/22/24 04:09 11:21 MCV 84.4 MCH 27.6 MCHC 32.7 RDW 12.4 Plt Count 299 MPV 9.6 Immature Gran % (Auto) 0.4 Neut % (Auto) 83.8 H Lymph % (Auto) 12.9 L [place] % (Auto) 2.4 Eos % (Auto) 0.1 Baso % (Auto) 0.4 Lymph # (Auto) 1.0 L [place] # (Auto) 0.2 Eos # (Auto) 0.0 Baso # (Auto) 0.0 Abs Immat Gran (auto) 0.03 Absolute Neuts (auto) 6.6 Absolute Nucleated RBC 0.000 Nucleated RBC % (auto) 0.0 Anion Gap 11 L Estim Creat Clear Calc 149.8 Estimated GFR > 60 Random Glucose 128 H Calcium 8.6 D Urine Opiates Screen POSITIVE H Ur Buprenorphine Scrn Not Detected Ur Oxycodone Screen Not Detected Urine Methadone Screen Not Detected Urine Fentanyl Screen POSITIVE H Ur Barbiturates Screen Not Detected Ur Phencyclidine Scrn Not Detected Ur Amphetamines Screen Not Detected U Benzodiazepines Scrn Not Detected Urine Cocaine Screen POSITIVE H U Marijuana (THC) Screen POSITIVE H Assessment and Plan (1) JOHN (acute kidney injury): Status: Acute (2) Asthma with exacerbation: Status: Acute Assessment and Plan: 34-year-old male with a past medical history significant for mild intermittent asthma, depression, ADHD, and substance use disorder who presented to the ED with worsening shortness of breath and wheezing for the past 2 weeks. Received DuoNeb, Solu-Medrol, albuterol and oxygen via NC in ED with improvement. mild intermittent asthma with acute exacerbation, no sepsis leukocytosis, likely reactive, chest x-ray negative,COVID/flu/RSV negative added hycodene ,antiemtics and loratidine continue DuoNebs q.4h,soulmedrol 40mg BID, doxycycline 100 mg b.i.d. empirically for bronchitis Dehydration, mild JOHN - creatinine up about 0.3 from baseline s/p LR 100 mL/hr x2L improved. LEANDRO - pt admits to intranasal heroin and crack cocaine recently - addiction med consult offered, pt declined - previously was on suboxone, has not taken since recent incarceration acute asthma exacerbation(mild intermittent ) and new oxygen requirement with mild JOHN requiring- need nebs.steriods and close moniteringrespiratory status -not optimal yet Quality Stroke Does the patient have a stroke diagnosis?: No VTE Prior VTE?: No VTE Risk Level:: Medical - moderate - high VTE Device Contraindication: Treatment Not Indicated VTE Drug Contraindication: N/A - Med Ordered
[2024-10-22] MEDS: 0.9 % Sodium Chloride Flush 3 ML SYRINGE IVFLUSH (15:28)
[2024-10-22] MEDS: Loratadine 10 MG TABLET PO (15:28)
[2024-10-22] MEDS: Buprenorphine/Naloxone 8/2 mg FILM 1 FILM SUBLINGUAL ×2 (15:46→16:32)
[2024-10-22] MEDS: cloNIDine HCL 0.1 MG TABLET PO (15:47)
[2024-10-22] MEDS: hydrOXYzine HCL 50 MG TABLET PO (15:47)
--- NOTE | 2024-10-22 15:48 | PC.NURSE ---
pt agitated, reporting severe body aches, chills, sweats, diarrhea, cough. [employer]ED [employer]UFACTURING TECHNICIAN Ro Lepe notified and suboxone ordered.
--- NOTE | 2024-10-22 17:34 | MHC.RECOVRN ---
T/W stopped to check in on pt. following him receiving another 8mg of suboxone. Pt wias in bed eating dinner with brother at bedside. T/W did not talk with pt. as I was invformed family is not aware of pt's substance use history. Nurse Annabel reported that pt seemed to be a little better . He had received 8mg of suboxone at 4:30PM. He had also received hydroxyzine 50mg and clonidine 0.1mg at 3:45PM. Pt's main sx are irritation, body temp changes, restlessness and body aches. T/W provided update to provider Ro Meier NP for Follow up.
--- NOTE | 2024-10-22 19:07 | PC.NURSE ---
late entry - pt reported to me that he had a knife in his jacket pocket. security alerted and came down to check pt and confiscate knife. It was brought back to security and pt cleared
[2024-10-22] MEDS: Mirtazapine 7.5 MG TABLET PO (21:04)
[2024-10-23] MEDS: Benzonatate 100 MG CAPSULE PO (00:10)
[2024-10-23] MEDS: Acetaminophen 325 MG TABLET 650 MG PO (00:10)
[2024-10-23] MEDS: Melatonin 3 MG TABLET 6 MG PO (00:11)
[2024-10-23 04:59] VITALS: BMI 25.8
[2024-10-23 06:35] LABS: MANUAL DIFF FLAG NO
[2024-10-23 06:51] LABS: Basophils Percent Auto 0.2 % (0-2); Hematocrit 44.2 % (42.0-52.0); Hemoglobin 14.4 g/dl (14.0-18.0); Imm Gran Abs Auto 0.03 X10*3/uL (0.00-0.03); Imm Gran Pct Auto 0.4 % (0.0-0.4); Lymphocytes Absolute Auto 1.6 X10*3/uL (1.2-4.9); Lymphocytes Percent Auto 19.4 % (20-40); Mean Corpuscular HGB Conc 32.6 g/dl (31.0-36.0); Mean Corpuscular Hemoglobin 27.2 pg (27.0-33.0); Mean Corpuscular Volume 83.6 fL (80.0-98.0); Monocytes Absolute Auto 0.4 X10*3/uL (0.1-1.2); Monocytes Percent Auto 4.8 % (2-11); Neutrophils Absolute Auto 6.4 x10*3/uL (2.0-8.3); Neutrophils Percent Auto 75.2 % (45-73); Platelet Count 336 X10*3/uL (160-400); Red Blood Count 5.29 X10*6/uL (4.60-5.80); Red Cell Distribution Width 12.8 % (11.0-16.0); White Blood Count 8.5 X10*3/uL (4.8-10.8)
[2024-10-23 07:02] LABS: Anion Gap 11 (12-20); Blood Urea Nitrogen 11 mg/dL (9-16); Carbon Dioxide 26 mmol/L (22-29); Chloride 108 mmol/L (96-108); Creatinine Clr Calc Pharmacy 165.4; Estimated Glomerular Filt Rate > 60; Glucose Random 114 mg/dL (60-115); Potassium 4.2 mmol/L (3.3-5.1); Sodium 141 mmol/L (135-145)
[2024-10-23 07:51] VITALS: BP 128/73; PULSE 75; RESP 17; TEMP 36.7; O2SAT 94
--- NOTE | 2024-10-23 08:03 | P.DS_ITS ---
DS: Providers Provider Date of Service: 10/23/24 Date of admission: 10/21/24 09:47 Date of discharge: 10/23/24 Primary care physician: Alana Ortega MD Consults: 10/21/24 17:52 Addiction Medicine Routine Consulting Provider: Addiction Covering Reason for consultation: wants to restart suboxone Has provider been notified: No Attending physician on discharge: Chio Hunt Discharging clinician: Chio Hunt DS: Diagnosis Discharge Diagnosis (1) JOHN (acute kidney injury): Status: Acute (2) Asthma with exacerbation: Status: Acute DS: Summary Hospital Course Hospital Course: Hpi:34-year-old male with a past medical history significant for mild intermittent asthma, depression, ADHD, and substance use disorder who presented to the ED with worsening shortness of breath and wheezing for the past 2 weeks. He reports that he has been using his albuterol inhaler sometimes multiple times in hour, causing him to run out recently and he started using his mother's ?blue inhaler ?. He has worsening shortness of breath with exertion and has had a productive cough with some dark green sputum. He denies any fever or chills. He has not been around anyone sick recently. He has had 2 episodes of vomiting secondary to coughing episodes and denies any hematemesis or coffee-ground emesis. Hospital course: patient came with cough and wheezing ,also use snort cocaine- admitted for mild intermittent asthma excerebation-leukocytosis, likely reactive, chest x-ray nega tive,COVID/flu/RSV negative-started on nebs ,steriods ,given added hycodene ,antiemtics and loratidine : with above supportive management -patient seems to be improved . patient will go home with cough syrup,prednisone 40 mg for 4 days ,loratidine ,benzonatate, doxycycline 100 mg po bidx5 days. Dehydration with mild JOHN: Improved with IV hydration, patient was encouraged for p.o. intake and hydration. Patient was strongly advised to abstain from drug use. plan: home with cough syrup(hycodan)-limited supply,prednisone 40 mg for 4 days ,loratidine ,benzonatate, doxycycline 100 mg po bidx5 days. Above management discussed with the patient detail length he understand in agreement with the above plan, time spent 40 minutes. Time Attestation Total time managing care of this patient today: 40 mintues. Discharge Coordination Time (in mins): 40 min Quality: Safe Use of Opioids Does Pt have an Active Cancer Diagnosis on the Problem List?: No Quality: Stroke Does the patient have a stroke diagnosis?: No Physical Exam Vital Signs: Vital Signs: Last Vital Signs Temp 98.1 F 10/23/24 07:51 Pulse 75 10/23/24 07:51 Resp 17 10/23/24 07:51 BP 128/73 10/23/24 07:51 Pulse Ox 94 10/23/24 07:51 O2 Del Method Room Air 10/23/24 07:51 O2 Flow Rate 2 10/22/24 11:48 BMI result Body Mass Index 25.8 Appearance: Alert.? Oriented X3.? cvs: rrr, [id number] , no murmur res: clear to auscultation ,no rhonchii or wheezing abd: no rebound or guarding ,nt, bs present. ext pulses present , no cyanosis . neuro: axo3 , nonfocal. DS: Data Data Completed and Pending Labs on day of discharge: Laboratory Results - last 24 hr 10/22/24 10/23/24 11:21 05:15 WBC 8.5 RBC 5.29 Hgb 14.4 Hct 44.2 MCV 83.6 MCH 27.2 MCHC 32.6 RDW 12.8 Plt Count 336 MPV 10.0 Immature Gran % (Auto) 0.4 Neut % (Auto) 75.2 H Lymph % (Auto) 19.4 L [place] % (Auto) 4.8 Eos % (Auto) 0.0 Baso % (Auto) 0.2 Lymph # (Auto) 1.6 [place] # (Auto) 0.4 Eos # (Auto) 0.0 Baso # (Auto) 0.0 Abs Immat Gran (auto) 0.03 Absolute Neuts (auto) 6.4 Absolute Nucleated RBC 0.000 Nucleated RBC % (auto) 0.0 Sodium 141 Potassium 4.2 Chloride 108 Carbon Dioxide 26 Anion Gap 11 L BUN 11 Creatinine 0.67 Estim Creat Clear Calc 165.4 Estimated GFR > 60 Random Glucose 114 Calcium 9.0 Urine Opiates Screen POSITIVE H Ur Buprenorphine Scrn Not Detected Ur Oxycodone Screen Not Detected Urine Methadone Screen Not Detected Urine Fentanyl Screen POSITIVE H Ur Barbiturates Screen Not Detected Ur Phencyclidine Scrn Not Detected Ur Amphetamines Screen Not Detected U Benzodiazepines Scrn Not Detected Urine Cocaine Screen POSITIVE H U Marijuana (THC) Screen POSITIVE H Imaging Chest x-ray: Radiologist's impression: ITS Impressions Chest X-Ray 10/21/24 06:05 IMPRESSION: Unremarkable examination. Electronically signed by: David Rome MD 10/21/2024 06:25 AM [facility] Discharge Plan Discharge Anticipated Discharge Date/Time: 10/23/24 07:54 Patient Disposition: Home, Self-Care Discharge Diagnosis: asthma execerbation Referrals: Alana Sena MD [Primary Care Provider] - 1 Week Discharge Medications: New doxycycline hyclate [Doxy-100] 100 mg Recon Soln 100 mg IV Q12H Qty: 10 0RF benzonatate 100 mg Capsule 100 mg PO TID PRN (Reason: Cough) Qty: 12 0RF codeine-guaifenesin 10-100 mg/5 mL Liquid 10 ml PO Q4H PRN (Reason: Cough) Qty: 100 0RF loratadine 10 mg Tablet 10 mg PO DAILY Qty: 5 0RF Continued hydroxyzine HCl 50 mg tablet 50 mg PO BID PRN (Reason: Anxiety) 30 Days Qty: 60 0RF albuterol sulfate [Ventolin HFA] 90 mcg/actuation HFA aerosol inhaler 1 puff PO QID PRN (Reason: for wheezing) Qty: 18 0RF fluoxetine 10 mg capsule 10 mg PO DAILY 30 Days Qty: 30 0RF clonidine HCl 0.1 mg tablet 0.1 mg PO BID PRN (Reason: anxiety) 30 Days Qty: 60 0RF Protocol: Hold for SBP< HOLD for SBP < : 90 buprenorphine-naloxone [Suboxone] 8-2 mg film 2 film sublingual ONCE quetiapine 200 mg tablet 200 mg PO BEDTIME 30 Days Qty: 30 2RF Discharge Orders: Discharge Order (Routine); Ordered 10/23/24 Ordered By: Chio Hunt Diet: Advance to usual diet Activity on Discharge: As tolerated Stand Alone Forms: Patient Portal Discharge page Print Language: Occitan Care Plan Goals: patient came with cough and wheezing ,also use snort cocaine- admitted for mild intermittent asthma excerebation-leukocytosis, likely reactive, chest x-ray negative,COVID/flu/RSV negative-started on nebs ,steriods ,given added hycodene ,antiemtics and loratidine : with above supportive management -patient seems to be improved . patient will go home with cough syrup,prednisone 40 mg for 4 days ,loratidine ,benzonatate, doxycycline 100 mg po bidx5 days. john improved with hydration -advised for po intake and hydration. Patient was strongly advised to abstain from drug use. Health Concerns: as above. Plan of Treatment: as above. Assessment: as above.
--- NOTE | 2024-10-23 08:36 | MHC.CM.PN ---
Patient medically cleared for dc home self care via private transport.
[2024-10-23] MEDS: Buprenorphine/Naloxone 12/3 mg FILM 1 FILM SUBLINGUAL (08:46)
[2024-10-23] MEDS: Loratadine 10 MG TABLET PO (08:46)
[2024-10-23] MEDS: predniSONE 20 MG TABLET 40 MG PO (08:46)
[2024-10-23] MEDS: 0.9 % Sodium Chloride Flush 3 ML SYRINGE IVFLUSH (08:50)
--- NOTE | 2024-10-23 09:47 | MHC.RECOVRN ---
Met with pt to follow up after Suboxone initiation yesterday. Pt had experienced precipitated withdrawal and received a total of 32 mg Suboxone. This morning pt received 12 mg. Pt awake, alert, easily engages in conversation. Reports induction was difficult but is relieved to be back on the medication. Denies withdrawal symptoms, states I feel good as new. Pt plans to follow up with [facility] to continue MOUD. Appt 10/28/24 at 1PM. Discussed with Ro Lepe APRN as well as pts RN.
== END 2024-10-23 09:52 | disposition home or self-care (01) | DRG 141 ==
LOC: HO.ED 09:25 → HO.EDOVER 09:55 → HO.S3 10-22 19:35
PROVIDERS: Nurse Practitioner Psychiatric/Mental Health; Admitting Provider Physician Assistant; Emergency Provider Emergency Medicine; PCP Internal Medicine; Visit Provider Internal Medicine
DX: J45.21 Mild intermittent asthma with (acute) exacerbation (principal); N17.9 Acute kidney failure, unspecified; F11.20 Opioid dependence, uncomplicated; F19.90 Other psychoactive substance use, unspecified, uncomplicated; F14.90 Cocaine use, unspecified, uncomplicated; E86.0 Dehydration; F90.9 Attention-deficit hyperactivity disorder, unspecified type; Z20.822 Contact with and (suspected) exposure to COVID-19; Z79.899 Other long term (current) drug therapy
CPT/HCPCS: 0241U; 36415; 71045; 80048; 80307; 84484; 85025; 93005; 94640; 99285; J1650; J2919; J3475; J7120

== ENCOUNTER → 2024-10-21 05:47 | Outpatient (BNV) | payer MEDICAID, SELFPAY | PROVIDERS: Admitting Provider Physician Assistant; Emergency Provider Emergency Medicine; Visit Provider Internal Medicine Cardiovascular Disease | DX: R06.09 Other forms of dyspnea (principal); R00.0 Tachycardia, unspecified; R94.31 Abnormal electrocardiogram [ECG] [EKG] | CPT/HCPCS: 93010 ==

== ENCOUNTER → 2024-10-21 09:47 | Outpatient (BNV) | payer MEDICAID, SELFPAY | PROVIDERS: Admitting Provider Physician Assistant; Emergency Provider Emergency Medicine; Visit Provider Physician Assistant | DX: J45.901 Unspecified asthma with (acute) exacerbation (principal); N17.9 Acute kidney failure, unspecified; F19.90 Other psychoactive substance use, unspecified, uncomplicated | CPT/HCPCS: 99223; 99232; 99239 ==

== ENCOUNTER → 2024-10-21 09:47 | Outpatient (BNV) | payer MEDICAID, SELFPAY | PROVIDERS: Admitting Provider Physician Assistant; Emergency Provider Emergency Medicine; Visit Provider Nurse Practitioner Psychiatric/Mental Health | DX: F11.90 Opioid use, unspecified, uncomplicated (principal) | CPT/HCPCS: 99222 ==

== ENCOUNTER 2024-11-01 11:31 | Emergency (ER) | payer OTHER, SELFPAY ==
[2024-11-01 11:50] VITALS: BP 114/49; PULSE 87; RESP 16; TEMP 37; O2SAT 93; BMI 23.7
--- NOTE | 2024-11-01 12:00 | ED.OVERDOSE ---
HPI - Overdose General Chief Complaint: Overdose Stated Complaint: OVERDOSE Time Seen by Provider: 11/01/24 11:41 Source: patient, EMS, RN notes reviewed and old records reviewed Mode of arrival: EMS History of Present Illness ED Provider: Shelley Penaloza PA-C HPI Narrative: 34-year-old male with a past medical history of asthma, depression, ADHD, PTSD, substance abuse, presenting to the ED via EMS after suspected overdose. Patient was at court house meeting hospital security officer and noted to be nodding off with suspected overdose, per EMS patient desatted to 82% on RA, was given 2 mg of intranasal Narcan with positive result. Patient denies any substance use x few days. Does report history of snorting heroin. Denies other illicit substances or EtOH. Denies injury, trauma, fall, SI or HI Related Data Previous Rx's ?Medication ?Instructions ?Recorded quetiapine 200 mg tablet 200 mg PO BEDTIME 30 days #30 tabs 10/09/23 hydroxyzine HCl 50 mg tablet 50 mg PO BID PRN Anxiety 30 days 11/18/23 #60 tabs fluoxetine 10 mg capsule 10 mg PO DAILY 30 days #30 caps 12/24/23 clonidine HCl 0.1 mg tablet 0.1 mg PO BID PRN anxiety 30 days 04/09/24 #60 tabs benzonatate 100 mg capsule 100 mg PO TID PRN Cough #12 caps 10/23/24 codeine 10 mg-guaifenesin 100 mg/5 10 ml PO Q4H PRN Cough #100 mL 10/23/24 mL oral liquid doxycycline hyclate 100 mg 100 mg IV Q12H #10 ea 10/23/24 intravenous powder for solution (Doxy-100) loratadine 10 mg tablet 10 mg PO DAILY #5 tabs 10/23/24 albuterol sulfate 90 mcg/actuation 1 puff PO QID PRN for wheezing #18 10/24/24 aerosol inhaler (Ventolin HFA) ea buprenorphine 12 mg-naloxone 3 mg 1 film buccal BID #20 ea 11/01/24 sublingual film (Suboxone) Allergies Allergy/AdvReac Type Severity Reaction Status Date / Time No Known Allergies Allergy Verified 11/01/24 12:11 Review of Systems Review of Systems: Yes all other systems are reviewed and are negative Constitutional: Constitutional: Reports as per HPI [facility] Past Medical History Attestation statement: The following information was validated with the patient. Source: old records reviewed Medical History Asthma Depression ADHD (attention deficit hyperactivity disorder) Post traumatic stress disorder (PTSD) Substance abuse Patient denies medical problems Surgical History No pertinent past surgical history Family History Family History Mother No problems noted. Father No problems noted. Social History Social History Household Members: Other Household Members Other:: mother Housing: Apartment Do you presently have visiting nurse or other home services: No Alcohol intake: former Patient Tobacco Use Status: Current everyday Tobacco user Tobacco use type: Cigarette Cigarettes Per Day: 2 Years Smoked: 17 e-Cigarette/Vaping Use: Never Used Second Hand Smoke Exposure: No Substance Use Type: Heroin and Marijuana service: No Current occupational status: unemployed Sexual orientation: Straight/Heterosexual Cognitive needs: No Hearing needs: No Vision needs: Yes Physical Exam Vital Signs: Vital Signs: Last Vital Signs Temp 98.6 F 11/01/24 11:50 Pulse 87 11/01/24 11:50 Resp 16 11/01/24 11:50 BP 114/49 L 11/01/24 11:50 Pulse Ox 93 11/01/24 11:50 O2 Del Method Room Air 11/01/24 11:50 BMI result Body Mass Index 23.7 Const: General: cooperative, healthy appearing, no acute distress, alert and awake Orientation/consciousness: patient oriented x3 Limitations: no limitations HEENT: Head: Yes normal to inspection and Yes atraumatic Ears: hearing grossly normal bilaterally General nose exam: Normal external nose present Face and sinus: Yes normal facial exam Eyes: General: appearance normal, both eyes and all related structures EOM: EOMs intact bilaterally Neck: Neck: Yes normal visual inspection and Yes no meningeal signs Resp: Effort & Inspection: normal respiratory effort and no respiratory distress Auscultation: clear to auscultation bilaterally Cardio: Rate: regular rate Heart sounds: S1 normal heart sound present and S2 normal heart sound present GI: Inspection: Yes normal to inspection Palpation (GI): Soft to palpation, nontender, no guarding and not rigid Skin: Rashes: no rashes Wounds: no wounds Neuro: General: patient oriented x3, tone normal and no meningeal signs Cranial nerves: Yes CN's II-XII intact bilaterally Gait exam (Neuro): Normal gait present Extrem: General: Yes normal to inspection Course Course Course Narrative: -1315--patient is sleeping in stretcher, easily arousable -1328--patient has remained awake and alert. Safe for discharge home at this time. Will be discharged with Narcan to go -1350--patient was evaluated by recovery/addiction team, plan upon prior discharged from our facility on 10/23/24 plan was for patient to follow-up [facility] to continue Suboxone, however, patient would like to follow at hospital, recovery made appointment for patient. Patient is safe for discharge at this time -[facility] made an appointment for patient 11/11 at 15:00. Ro Lepe sent bridge prescription of Suboxone to patient's pharmacy Results discussed with patient including worrisome signs and symptoms and strict return precautions, and when to return to the emergency department. They verbalized understanding and feel safe for discharge at this time. Medical Decision Making Medical Decision Making MDM Narrative: 34-year-old male with a past medical history of asthma, depression, ADHD, PTSD, substance abuse, presenting to the ED via EMS after suspected overdose. On exam vital signs stable, NAD, nontoxic appearing, awake and alert, ambulating in the ED, continues to denies substance use. Concern for accident out overdose. Denies SI/HI. Will observe and re-evaluate and the area menstrual discharge with Narcan to go home Please refer to course for remaining clinical decision making, interpretation of labs/imaging results, and discussions with consultants and/or family members. Differential Diagnosis Differential Diagnoses: The differential diagnosis associated with the presentation includes As above Admission/Observation Consideration of admission/observation: Escalation of care including admission/observation considered Lab Data [facility] Lab Attestation statement: I reviewed the patient's lab results. Radiology Impression Discussion of test interpretation with radiology: I have reviewed the radiologist's reading. Independent Historian Clinical information obtained from an independent historian. History obtained from or confirmed by: EMS External Record Review External record reviewed: Inpatient record, Office record, Outpatient record, Prior outpatient labs, Prior outpatient radiology, Primary care record and Outside ED record Tests considered The following testing was considered but not selected: As above Chronic Conditions Patient?s care impacted by: Other Social Determinants Patient?s care significantly limited by Social Determinants of Health including: Inadequate housing, Low income, Alcoholism and drug addiction in family, Problems related to primary support group, Unemployment, Problems related to employment and Other Social Determinant of Health Discharge Plan Discharge Clinical Impression: Accidental overdose, Substance use Patient Disposition: Home, Self-Care Instructions: Adult Overdose (ED) Additional Instructions: YOU HAVE AN APPOINTMENT WITH [facility] ON 11/11 AT 15:00 IF PRESCRIPTION FOR SUBOXONE WAS SENT TO THE PHARMACY FOR YOU Please avoid alcohol and drug use this can kill you Consider detox Prescriptions: Continued buprenorphine-naloxone [Suboxone] 12-3 mg film 1 film buccal BID Qty: 20 0RF No Action hydroxyzine HCl 50 mg tablet 50 mg PO BID PRN (Reason: Anxiety) 30 Days Qty: 60 0RF fluoxetine 10 mg capsule 10 mg PO DAILY 30 Days Qty: 30 0RF clonidine HCl 0.1 mg tablet 0.1 mg PO BID PRN (Reason: anxiety) 30 Days Qty: 60 0RF Protocol: Hold for SBP< HOLD for SBP < : 90 albuterol sulfate [Ventolin HFA] 90 mcg/actuation HFA aerosol inhaler 1 puff PO QID PRN (Reason: for wheezing) Qty: 18 0RF doxycycline hyclate [Doxy-100] 100 mg Recon Soln 100 mg IV Q12H Qty: 10 0RF benzonatate 100 mg Capsule 100 mg PO TID PRN (Reason: Cough) Qty: 12 0RF codeine-guaifenesin 10-100 mg/5 mL Liquid 10 ml PO Q4H PRN (Reason: Cough) Qty: 100 0RF loratadine 10 mg Tablet 10 mg PO DAILY Qty: 5 0RF quetiapine 200 mg tablet 200 mg PO BEDTIME 30 Days Qty: 30 2RF Referrals: [facility] [place] [facility] [Provider Group] Ro Lepe CNP [Nurse Practitioner] - 11/11/24 3:00 pm ([facility] appt 11/11/24 at 3PM) Alana Sena MD [Primary Care Provider] - Print Language: Greenlandic
[2024-11-01 13:36] VITALS: BP 121/68; PULSE 66; RESP 18; O2SAT 98
--- NOTE | 2024-11-01 14:23 | MHC.RECOVRN ---
Met with pt in [id number] after presenting to the ED after overdose. Pt familiar with t/w from previous hospital admission where he was initiated on Suboxone. Pt asleep upon approach, wakes to voice. During conversation pt is awake and alert, however, does begin to appear sedated when not speaking. 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 Pt reports he was awake when Narcan was administered, does not believe it was an overdose. Pt reports he used 1 bag heroin/fentanyl, [place], the day after he was discharged from the hospital (10/24). Denies use since then. Pt had an appt on 10/28 with [facility] to continue MOUD. Pt did not make it to that appt and is now requesting to come to the [facility]. Pt reports he has been taking 24 mg Suboxone daily since discharge, reports a friend has given him some films. Pt grateful to have been started on Suboxone and reports it is going well. Pt also reports since last hospitalization he has spoken to his child's mother and he plans on moving into her basement. Pt anxious to be discharged. Denies questions or concerns for t/w.
[2024-11-01] MEDS: Naloxone HCl Nasal TAKE HOME 4 MG SPRAY 8 MG NOSTRILALT (14:46)
[2024-11-01 14:48] VITALS: BP 121/68; PULSE 66; RESP 18; TEMP 36.6; O2SAT 98
== END 2024-11-01 14:48 | disposition home or self-care (01) ==
PROVIDERS: Emergency Provider Student in an Organized Health Care Education/Training Program; PCP Internal Medicine
DX: T65.91XA Toxic effect of unspecified substance, accidental (unintentional), initial encounter (principal); Y92.9 Unspecified place or not applicable; J45.909 Unspecified asthma, uncomplicated; F32.A Depression, unspecified
CPT/HCPCS: 99282; 99284; S9485